=== PATIENT | female | born 1950 | race Caucasian/White ===

== ENCOUNTER 2020-05-04 02:24 | Emergency (ER) | payer MEDICARE ==
[~2020-05-04] VITALS: Ht 157.5 cm; Wt 86.2 kg
[2020-05-04] MEDS ORDERED: KETOROLAC TROMETHAMINE 60 MG/2 ML VIAL ONE (03:14)
[2020-05-04] MEDS ORDERED: HYDROCODONE/APAP 5MG-325MG TAB ONE (03:14)
[2020-05-04] MEDS ORDERED: CYCLOBENZAPRINE HCL 10 MG TAB ONE (03:14)
[2020-05-04] MEDS ORDERED: CYCLOBENZAPRINE HCL 10 MG TAB PO ONE (03:15)
[2020-05-04] MEDS ORDERED: HYDROCODONE/APAP 5MG-325MG TAB PO ONE (03:15)
[2020-05-04] MEDS ORDERED: KETOROLAC TROMETHAMINE 60 MG/2 ML VIAL IM ONE (03:15)
[2020-05-04] MEDS ORDERED: CYCLOBENZAPRINE5 MG PO (03:23)
[2020-05-04] MEDS ORDERED: PREDNISONE20 MG PO (03:23)
--- NOTE | 2020-05-04 03:23 | Emergency Department Note ---
History of Present Illnes History of Present Illness Chief Complaint: sacral pain radiating to bilateral buttck to rle History of Present Illness This is a 70 year old female. was doing well prior to this. 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 Onset (how long ago): day(s) (1) Location: see above Quality: rle Radiation: Reports extremity (rle) Severity: severe Onset quality: gradual Duration (how long): day(s) (1) Timing of current episode: constant Progression: worsening Chronicity: new Context: Denies recent illness, Denies recent surgery, Denies recent immobilization, Denies recent travel, Denies trauma/injury, Denies new medications, Denies hx of DVT/PE, Denies non-compliance w/ medications Relieving factors: none Exacerbating factors: movement Associated symptoms: Reports denies other symptoms Treatments prior to arrival: none Past Medical/Family History Physician Review I have reviewed the patient's past medical and family history. Any updates have been documented here. Past Medical History Recent Fever: No Clinical Suspicion of Infectio: No New/Unexplained Change in Ment: No Past Medical History: Hypertension, Osteoarthritis Social History Smoking Cessation: Never Smoker Counseling Performed: No Alcohol Use: None Any Illegal Drug Use: No TB Exposure/Symptoms: No Physically hurt or threatened: No Family History Family history of heart diseas: No Other Any Pre-Existing Lines (PICC,: No Is patient up to date on immun: No Review of Systems Review of Systems Constitutional: Reports no symptoms EENTM: Reports no symptoms Cardiovascular: Reports no symptoms Respiratory: Reports no symptoms Gastrointestinal: Reports no symptoms Genitourinary: Reports no symptoms Musculoskeletal: Reports as per HPI Integumentary: Reports no symptoms Neurological: Reports no symptoms Psychological: Reports no symptoms Endocrine: Reports no symptoms Hematological/Lymphatic: Reports no symptoms Review of other systems: All other systems negative Physical Exam Related Data Vital signs reviewed: Yes Physical Exam CONSTITUTIONAL Constitutional: Present well-developed, Present well-nourished HENT HENT: Present normocephalic, Present atraumatic, Present oropharynx clear/moist, Present nose normal HENT L/R: Present left ext ear normal, Present right ext ear normal EYES Eyes: Reports PERRL, Reports conjunctivae normal NECK Neck: Present ROM normal, Present supple PULMONARY Pulmonary: Present effort normal, Present breath sounds normal CARDIOVASCULAR Cardiovascular: Present regular rhythm, Present heart sounds normal, Present capillary refill normal, Present normal rate GASTROINTESTINAL Abdominal: Present soft, Present nontender, Present bowel sounds normal GENITOURINARY Genitourinary: Present exam deferred SKIN Skin: Present warm, Present dry MUSCULOSKELETAL Musculoskeletal: Present ROM normal NEUROLOGICAL Neurological: Present alert, Present oriented x 3, Present no gross motor or sensory deficits, Present other (POSITIVE RIGHT STRAIGHT LEG TEST AT 30 DEGREES) PSYCHOLOGICAL Psychological: Present mood/affect normal, Present judgement normal Critical Care Time Comments PAIN DECREASED S/P MEDS Assessment & Plan Medical Decision Making MDM SEE BELOW Assessment & Plan Final Impression: (1) Sciatica Depart Disposition: HOME, SELF-halfway Meds Active Scripts Cyclobenzaprine Hcl (FLEXERIL) 5 Mg Tablet, 10 MG PO Q8H PRN for MODERATE PAIN (4-6), #30 TAB TAKE AFTER PREDNISONE TO CONTROL PAIN IF NEED BE Prov:JOVANNI LOGAN 05/04/20 Prednisone (PREDNISONE) 20 Mg Tab, 60 MG PO DAILY PRN for MODERATE PAIN (4-6), #18 TAB take all 3 20 mg pills at once Prov:JOVANNI LOGAN 05/04/20 Medications in the ED Ketorolac Tromethamine 60 mg ONCE ONCE IM ; Start 05/04/20 at 03:15; Stop 05/04/20 at 03:16; Status UNV Acetaminophen/ Hydrocodone Bitart 1 ea ONCE ONCE PO ; Start 05/04/20 at 03:15; Stop 05/04/20 at 03:16; Status UNV Cyclobenzaprine HCl 10 mg ONCE ONCE PO ; Start 05/04/20 at 03:15; Stop 05/04/20 at 03:16; Status UNV JOVANNI LOGAN May 04, 2020 03:23
[2020-05-05] MEDS ORDERED: PEPCID20 MG PO (05:14)
[2020-05-05] MEDS ORDERED: BENADRYL25 M1 PO (05:14)
--- OUTSIDE RECORDS SUMMARY | 2020-05-09 18:19 | XMS REPORT | Clinical Summary ---
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 Take 5 tabs/weekly Active alendronate (FOSAMAX) 70 Take 70 mg by 0 MG tablet mouth every 7 days. Take in the morning with a full glass of water on an empty stomach, do NOT take anything else by mouth or lie down for the next 30 min. Active pantoprazole (PROTONIX) Take 40 mg by 0 40 MG EC tablet mouth daily. Active levothyroxine (SYNTHROID, Take 75 mcg 0 LEVOXYL) 75 mcg tablet by mouth every morning. Active ondansetron (ZOFRAN) 4 MG Take 4 mg by 0 tablet mouth 3 (three) times a day as needed for nausea or vomiting. Active dicyclomine (BENTYL) 20 Take 20 mg by 0 mg tablet mouth 4 (four) times a day as needed. Active folic acid (FOLVITE) 1 MG Take 1 mg by 0 tablet mouth once a week. Active lisinopril Take 20 mg by 0 (PRINIVIL,ZESTRIL) 20 mg mouth daily. tablet Active hydroCHLOROthiazide Take 12.5 mg 0 (HYDRODIURIL) 12.5 MG by mouth tablet daily. Active pravastatin (PRAVACHOL) Take 80 mg by 0 40 MG tablet mouth daily. Active Problems Problem Noted Date Ruptured appendix 12/12/2017 Surgical History Surgery Date Site/Laterality Comments HYSTERECTOMY cancer of uetrus in 2013 APPENDECTOMY, 12/11/2017 Abdomen/Right Procedure: APPE NDECTOMY, LAPAROSCOPIC; Surgeon: Irasema Diamond; Location: [facility]; Service: General; Laterality: Right; Medical History Medical History Date Comments Disease of thyroid gland Hypertension Family History Medical History Relation Name Comments Heart disease Father Hyperlipidemia Father Hypertension Father Cancer Mother breast cancer Hyperlipidemia Mother breast cancer Hypertension Mother breast cancer Heart disease Sister Relation Name Status Comments Father Mother breast cancer Sister Social History Date Tobacco Use Types Packs/Day Years Used Never Smoker Drinks/Week oz/Week Comments Alcohol Use No Sex Assigned at Date Recorded Not on file Last Filed Vital Signs Not on file Plan of Treatment Not on file Results Not on fileafter 05/04/2019 Insurance Type Payer Benefit Subscriber ID Effective Phone Address Plan / Dates Group Medicare MEDICARE MEDICARE [id number] 2017-P [place], [place] resent [place] B Commercial AARP AARP [id number] 2017-P SUPPLEMENT resent Advance Directives For more information, please contact: [phone] 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
--- OUTSIDE RECORDS SUMMARY | 2020-05-09 18:19 | XMS REPORT | Continuity of Care Document ---
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 02/19/2017 [facility] AMS Active 0 02/02/2017 [facility] AMNESIA, GLOBAL TRANSIENT Acti ve 02/02/2017 [facility] Gastroesophageal reflux disease (disorder) Resolved Problem 02/27/2017 [facility] Hyperlipidemia (disorder) Reso lved Problem [facility] Hypertensive disorder, systemic arterial (disorder) Resolved Problem 02/27/2017 [facility] Hyperthyroidism (disorder) Res olved Problem [facility] Arthritis (disorder) Resolved Problem 02/27/2017 left hip and spine [facility] Localized osteoarthritis of knees, bilateral Active Problem 03/07/2020 Armen Pickett Psoriasis Active Problem 03/07/2020 Armen Pickett Neck pain Active Problem 11/02/2019 Armen Pickett Polyarthralgia Active Problem 11/02/2019 Armen Pickett Psoriatic arthritis Active Problem 03/07/2020 Armen Reinaer Long-term use of high-risk medication Active Problem 09/2019 Armen Reinaer Need for prophylactic vaccination and in oculation against influenza Active Diag nosis 04/15/2017 Armen Pickett Knee pain, right Active Problem 11/02/2019 Armen Pickett Knee pain, left Active Problem 11/02/2019 Armen Pickett Back pain Active Problem 03/07/2020 Armen Pickett Osteopenia of multiple sites A ctive Problem 09/2019 Armen Pickett Vitamin D deficiency Active Problem 03/07/2020 Armen Pickett Low vitamin D level Active Problem 03/07/2020 Armen Reinaer Shoulder pain, right Active Diagnosis 02/27/2020 Armen Pickett TRANSIENT GLOBAL AMNESIA Active [facility] ATHSCL HEART DISEASE OF [place] ART W Active [place] Medications Medication Details Route Status Patient Instructions Ordering Provider Order Date Source [place] 1 packet with food Orally Active 20 MEQ Orally Once a day Garcia 03/06/2020 Armen Pickett Vitamin D (Ergocalciferol) 1 c apsule Orally Active 1.25 MG (14275 UT) Orally once a week [place] 10/18/2019 Armen Pickett Vitamin D (Ergocalciferol) 1 c apsule Orally Active 1.25 MG (96378 UT) Orally once a week Garcia 07/26/2019 Armen Pickett Alendronate Sodium TAKE 1 TABL ET BY MOUTH ONCE A WEEK Orally Active 70 MG Orally Juan 07/14/2018 Armen Pickett Otezla 1 tablet Orally Active 30 MG Orally Twice a da y Juan 06/13/2018 Armen Pickett Methotrexate TAKE 5 TABLETS BY MOUTH ONCE EVERY WEEK NA Active 2.5 MG Juan 06/09/2018 Armen Pickett PredniSONE 1 tab prn Orally Active 5 MG Orally Once a day Juan 11/08/2017 Armen Pickett PredniSONE 1 tab prn Orally Active 5 MG Orally Once a day Juan 11/08/2017 Armen Pickett Alendronate Sodium take 1 tabl et Orally Active 70 MG Orally once a week Juan 09/20/2017 Armen Pickett Diclofenac Sodium 1 applicatio n to affected area Transdermal Active 3 % Transdermal Twice a day Yo usaf 06/10/2017 Armen Pickett Folic Acid 1 tablet Orally Active 1 MG Orally Once a day Juan 04/20/2017 Armen Pickett Methotrexate 3 tabs altogether Orally Active 2.5mg Orally Once a week Juan 04/20/2017 Armen Pickett Pravastatin Notes: (Same as: Yuliya west) Inactive 02/04/2017 [facility] Pravastatin 80 mg, Route: PO, Drug form: TAB, Daily, Dosing Weight 90.909, kg, Start date: 02/03/17 9:00:00 CDT, Duration: 30 day, Stop date: 03/04/17 9:00:00 CDT No Longer Active 02/03/2017 [facility] Hydrochlorothiazide 12.5 MG / Lisinopril 20 MG Oral Tablet 1 tab, Route: PO, Drug Form: TAB, Dosing Weight 90.909, kg, Daily, Start date: 02/03/17 9:00:00 CDT, Duration: 30 day, Stop date: 03/04/17 9:00:00 CDT Inactive 02/03/2017 [facility] Folic Acid Notes: (Same as: Fo lvite) Inactive 02/03/2017 [facility] Aspirin 325 MG Oral Tablet Not es: Take with food. Inactive 02/03/2017 [facility] Hydrochlorothiazide 25 mg Hydr ochlorothiazide 25 mg, 12.5 mg, 0.5 tab, Drug form: MISC, Route: PO, Daily, 02/03/17 9:00:00 CDT, Duration: 30 day, Stop date: 03/04/17 9:00:00 CDT Inactive 02/03/2017 [facility]ter lisinopril Notes: (Same as: Pr inivil, Zestril) Inactive 02/03/2017 [facility] Streptococcus pneumoniae serotype 1 caps ular antigen diphtheria [id number] protein conjugate vaccine / Streptococcus pneumoniae serotype 14 capsular antigen diphtheria [id number] protein conjugate vaccine / Streptococcus pneumoniae serotype 18C capsular antigen d Notes: Shake well prior to use (Same as: Prevnar 13) Inactive 02/03/2017 [facility] Docusate Sodium 50 MG / sennosides, HALFWAY 8.6 MG Oral Tablet Notes: (Same as Senokot-S) Equiv. to Rosalba-Colace. Inactive 02/03/2017 [facility] heparin Notes: porcine heparin Inactive 02/03/2017 [facility] Versed 1 mg, Route: IVP, PRN, Dosing Weight 90.909, kg, PRN Anxiety, Start date: 02/02/17 23:57:00 CDT, Duration: 30 day, Stop date: 03/04/17 23:56:00 CDT Inactive 02/03/2017 [facility] Ativan 1 mg, Route: IV, ONCE, Dosing Weight 90.909, kg, PRN Agitation, Start date: 02/02/17 23:33:00 CDT Inactive 02/03/2017 [facility] nter methotrexate 10 mg oral tablet 10 mg = 1 tab, PO, Q7D, 0 Refill(s) Active 02/03/2017 [facility] Aspirin 325 MG Oral Tablet 325 mg = 1 tab, PO, Daily, 0 Refill(s) Active 02/03/2017 [facility] Alendronic acid 40 MG Oral Tablet 40 mg = 1 tab, PO, Q7D, 0 Refill(s) Active 02/03/2017 [facility] Folic Acid 1 mg, Daily, 0 Refi ll(s) Active 02/03/2017 [facility] pravastatin 80 mg oral tablet 80 mg = 1 tab, PO, Daily, 0 Refill(s) Active 02/03/2017 [facility] Hydrochlorothiazide 12.5 MG / Lisinopril 20 MG Oral Tablet 1 tab, PO, Daily, 0 Refill(s) Active 02/03/2017 [facility] nt ketOROLAC 15 mg/mL injectable solution 15 mg, Route: IVP, Drug form: INJ, ONCE, Dosing Weight 72.727, kg, Priority: STAT, Start date: 02/02/17 18:18:00 CDT, Stop date: 02/02/17 18:18:00 CDT Inactive 02/02/2017 [facility] Compazine 10 mg, Route: IV, ON CE, Dosing Weight 72.727, kg, Start date: 02/02/17 18:17:00 CDT, Stop date: 02/02/17 18:17:00 CDT Inactive 02/02/2017 [facility] Pravastatin Sodium 1 tablet Orally Active 80 MG Orally Once a day Juan Pickett Methotrexate TAKE 5 TABLETS BY MOUTH ONCE EVERY WEEK NA Active 2.5 MG Juan Pickett Levothyroxine Sodium 1 tablet Orally Active 25 MCG Orally Once a day Juan Pickett Lisinopril-Hydrochlorothiazide 1 tablet Orally Active 20-12.5 MG Orally Once a day Juan Armen Pickett [place] Aspirin 1 tablet Orally Active 325 MG Orally Once a da y Juan Pickett Pantoprazole Sodium 1 tablet Orally Active 40 MG Orally Once a day Juan Pickett Folic Acid 1 tablet Orally Active 1 MG Orally Once a day Juan Pickett Alendronate Sodium 1 tablet Orally Active 70 MG Orally Once a week Juan Armen Pickett Pantoprazole Sodium 1 tablet Orally Active 40 MG Orally Once a day Radha Pickett Levothyroxine Sodium 1 tablet Orally Active 25 MCG Orally Once a day Garcia Armen Pickett Alendronate Sodium 1 tablet Orally Active 70 MG Orally once a week Radha Pickett [place] Aspirin 1 tablet Orally Active 325 MG Orally Once a da y Garcia Armen Pickett Lisinopril-Hydrochlorothiazide 1 tablet Orally Active 20-12.5 MG Orally Once a day Garcia Armen Pickett Pravastatin Sodium 1 tablet Orally Active 80 MG Orally Once a day Juan Armen Pickett Otezla 1 tablet Orally Active 30 MG Orally Twice a da y Garcia Cristian Pickett Tylenol Arthritis Pain 1 table t as needed Orally Active 650 MG Orally prn Radha Pickett Aspirin 81 1 tablet Orally Active 81 MG Orally Once a day Garcia Cristian Pickett Rosuvastatin Calcium 1 tablet Orally Active 20 MG Orally Once a day Radha Pickett PredniSONE TAKE 1 TABLET BY MO [facility] EVERY DAY NA Active 5 MG Radha Pickett Allergies, Adverse Reactions, Alerts Substance Category Reaction Severity Reaction type Status Date Reported Comments Source Synvisc One Adverse Reaction pain, swelling Adverse Reactio n Active 02/16/2020 Armen Reinaer Immunizations Immunization Date Given Site Status Last Updated Comments Source Flu Vaccine 04/12/2017 completed Armen Pickett pneumococcal 13-valent vaccine 02/03/2017 Not Given [facility] Results Order Name Results Value Reference Range Date Interpretation Comments Source ANEMIA STUDY Folate Lvl 78.7 >=3.0 ng/mL 02/03/2017 [facility] ANEMIA STUDY Vitamin B12 Lvl 326 254 - 1320 02/03/2017 [facility] CHEM PANEL Lactic Acid Lvl 0.6 0.5 - 2.2 02/03/2017 [facility] CHEM PANEL Phosphorus 3.3 2.5 - 4.5 02/03/2017 [facility] CHEM PANEL eGFR 72 02/03/2017 Result Comment: The eGFR is calculated using the CKD-EPI formula. In most young, healthy individuals the eGFR will be >90 mL/min/1.73m2. The eGFR declines with age. An eGFR of 60-89 may be normal in some populations, particularly the elderly, for whom the CKD-EPI formula has not been extensively validated. Use of the eGFR is not recommended in the following populations:

Individuals with unstable creatinine concentrations, including patients and those with serious co-morbid conditions.

Patients with extremes in muscle mass or diet.

The data above are obtained from the National Kidney Disease Education Program (NKDEP) which additionally recommends that when the eGFR is used in patients with extremes of body mass index for purposes of drug dosing, the eGFR should be multiplied by the estimated BMI. [facility] CHEM PANEL Calcium Lvl 8.6 8.5 - 10.5 02/03/2017 [facility] CHEM PANEL CO2 26 24 - 32 02/03/2017 [facility] CHEM PANEL Creatinine Lvl 0.84 0.50 - 1.40 02/03/2017 [facility] CHEM PANEL Sodium Lvl 141 135 - 145 02/03/2017 [facility] CHEM PANEL Chloride Lvl 106 95 - 109 02/03/2017 [facility] CHEM PANEL Potassium Lvl 3.9 3.5 - 5.1 02/03/2017 [facility] CHEM PANEL Glucose Lvl 104 70 - 99 02/03/2017 [facility] CHEM PANEL BUN 19 7 - 22 02/03/2017 [facility] CHEM PANEL AGAP 12.9 10.0 - 20.0 02/03/2017 [facility] CHEM PANEL Magnesium Lvl 2.2 1.8 - 2.4 02/03/2017 [facility] HEMATOLOGY WBC 5.6 3.7 - 10.4 02/03/2017 [facility] HEMATOLOGY MCV 89.6 80.0 - 98.0 02/03/2017 [facility] HEMATOLOGY RBC 3.85 4.20 - 5.40 02/03/2017 [facility] HEMATOLOGY RDW 14.8 11.5 - 14.5 02/03/2017 [facility] HEMATOLOGY Platelet 243 133 - 450 02/03/2017 [facility] HEMATOLOGY MCH 30.6 27.0 - 31.0 02/03/2017 [facility] HEMATOLOGY MCHC 34.1 32.0 - 36.0 02/03/2017 [facility] HEMATOLOGY MPV 8.3 7.4 - 10.4 02/03/2017 [facility] HEMATOLOGY Hgb 11.8 12.0 - 16.0 02/03/2017 [facility] HEMATOLOGY Hct 34.5 36.0 - 48.0 02/03/2017 [facility] HEMATOLOGY Segs-Bands # 3.8 1.5 - 8.1 02/03/2017 [facility] HEMATOLOGY Lymphocytes # 1.2 1.0 - 5.5 02/03/2017 [facility] HEMATOLOGY Monocytes # 0.5 0.0 - 0.8 02/03/2017 [facility] HEMATOLOGY Basophils 0.2 0.0 - 1.0 02/03/2017 [facility] HEMATOLOGY Eosinophils 0.6 0.0 - 4.0 02/03/2017 [facility] HEMATOLOGY Monocytes 9.3 2.0 - 12.0 02/03/2017 [facility] HEMATOLOGY Segs 68.1 45.0 - 75.0 02/03/2017 [facility] HEMATOLOGY Lymphocytes 21.8 20.0 - 40.0 02/03/2017 [facility] LIPIDS CHD Risk 2.26 3.90 - 5.80 02/03/2017 [facility] LIPIDS LDL (Calculated) 60 <=99 mg/dL 02/03/2017 [facility] LIPIDS HDL 58 >=61 mg/dL 02/03/2017 [facility] LIPIDS VLDL 13 02/03/2017 [facility] LIPIDS Chol 131 <=199 mg/dL 02/03/2017 [facility] LIPIDS Trig 63 <=149 mg/dL 02/03/2017 [facility] PARATHYROID PROFILE Ca Norm WB 1.07 1.05 - 1.25 02/03/2017 [facility] PARATHYROID PROFILE Ca Ion WB 1.06 1.05 - 1.25 02/03/2017 [facility] SPECIAL CHEMISTRY Hgb A1C 5.2 <=5.6 % 02/03/2017 [facility] DRUG SCREEN U Amph Scr Nega tive *NA* (02/02/17 6:02 PM) Negative 02/02/2017 [facility] DRUG SCREEN U Dolly Scr Nega tive *NA* (02/02/17 6:02 PM) Negative 02/02/2017 [facility] DRUG SCREEN U Benzodia Scr Nega tive *NA* (02/02/17 6:02 PM) Negative 02/02/2017 [facility] DRUG SCREEN U Cannab Scr Nega tive *NA* (02/02/17 6:02 PM) Negative 02/02/2017 [facility] DRUG SCREEN U Cocaine Scr Nega tive *NA* (02/02/17 6:02 PM) Negative 02/02/2017 [facility] DRUG SCREEN UDS Note See Note *NA* (02/02/17 6:02 PM) 02/02/2017 [facility] DRUG SCREEN U Opiate Scr Nega tive *NA* (02/02/17 6:02 PM) Negative 02/02/2017 [facility] DRUG SCREEN U Phencyc Scr Nega tive *NA* (02/02/17 6:02 PM) Negative 02/02/2017 [facility] URINE AND STOOL UA WBC 0-2 /HPF None Seen /HPF 02/02/2017 [facility] URINE AND STOOL UA Bacteria Few /HPF None Seen /HPF 02/02/2017 [facility] URINE AND STOOL UA RBC None Seen (02/02/17 6:02 PM) 0 - 2 02/02/2017 [facility] URINE AND STOOL UA Sq Epi Few /LPF Few /LPF 02/02/2017 [facility] URINE AND STOOL UA Ketones Negative *NA* (02/02/17 6:02 PM) Negative 02/02/2017 [facility] URINE AND STOOL UA Bili Negative *NA* (02/02/17 6:02 PM) Negative 02/02/2017 [facility] URINE AND STOOL UA Leuk Est Trace *ABN* (02/02/17 6:02 PM) Negative 02/02/2017 [facility] URINE AND STOOL UA Blood Negative (02/02/17 6:02 PM) Negative 02/02/2017 [facility] URINE AND STOOL UA Nitrite Negative (02/02/17 6:02 PM) Negative 02/02/2017 [facility] URINE AND STOOL UA Urobilinogen 0.2 0.1 - 1.0 02/02/2017 [facility] URINE AND STOOL UA Protein Negative (02/02/17 6:02 PM) Negative 02/02/2017 [facility] URINE AND STOOL UA pH 7.0 5.0 - 8.0 02/02/2017 [facility] URINE AND STOOL UA Glucose Negative (02/02/17 6:02 PM) Negative 02/02/2017 [facility] URINE AND STOOL UA Spec Grav 1.010 <=1.030 02/02/2017 [facility] URINE AND STOOL UA Color Yellow *NA* (02/02/17 6:02 PM) Yellow 02/02/2017 [facility] URINE AND STOOL UA Turbidity Slight Cloudy (02/02/17 6:02 PM) Clear 02/02/2017 [facility] CHEM PANEL Lactic Acid WB 1.4 0.5 - 2.2 02/02/2017 [facility] CARDIAC ENZYMES Troponin-I <0.02 0.00 - 0.40 02/02/2017 [facility] CHEM PANEL eGFR 54 02/02/2017 Result Comment: The eGFR is calculated using the CKD-EPI formula. In most young, healthy individuals the eGFR will be >90 mL/min/1.73m2. The eGFR declines with age. An eGFR of 60-89 may be normal in some populations, particularly the elderly, for whom the CKD-EPI formula has not been extensively validated. Use of the eGFR is not recommended in the following populations:

Individuals with unstable creatinine concentrations, including patients and those with serious co-morbid conditions.

Patients with extremes in muscle mass or diet.

The data above are obtained from the National Kidney Disease Education Program (NKDEP) which additionally recommends that when the eGFR is used in patients with extremes of body mass index for purposes of drug dosing, the eGFR should be multiplied by the estimated BMI. [facility] CHEM PANEL Chloride Lvl 105 95 - 109 02/02/2017 [facility] CHEM PANEL Calcium Lvl 9.1 8.5 - 10.5 02/02/2017 [facility] CHEM PANEL CO2 25 24 - 32 02/02/2017 [facility] CHEM PANEL Potassium Lvl 3.7 3.5 - 5.1 02/02/2017 [facility] CHEM PANEL Sodium Lvl 139 135 - 145 02/02/2017 [facility] CHEM PANEL Creatinine Lvl 1.07 0.50 - 1.40 02/02/2017 [facility] CHEM PANEL BUN 18 7 - 22 02/02/2017 [facility] CHEM PANEL Glucose Lvl 111 70 - 99 02/02/2017 [facility] CHEM PANEL Alk Phos 75 39 - 136 02/02/2017 [facility] CHEM PANEL Bili Total 0.8 0.2 - 1.3 02/02/2017 [facility] CHEM PANEL Albumin Lvl 4.3 3.5 - 5.0 02/02/2017 [facility] CHEM PANEL ALT 24 0 - 65 02/02/2017 [facility] CHEM PANEL AST 25 0 - 37 02/02/2017 [facility] CHEM PANEL Total Protein 7.5 6.4 - 8.4 02/02/2017 [facility] CHEM PANEL B/C Ratio 17 6 - 25 02/02/2017 [facility] CHEM PANEL AGAP 12.7 10.0 - 20.0 02/02/2017 [facility] CHEM PANEL Globulin 3.2 2.7 - 4.2 02/02/2017 [facility] CHEM PANEL A/G Ratio 1.3 0.7 - 1.6 02/02/2017 [facility] HEMATOLOGY PTT 26.1 22.9 - 35.8 02/02/2017 [facility] HEMATOLOGY PT 13.0 12.0 - 14.7 02/02/2017 [facility] HEMATOLOGY INR 0.96 0.85 - 1.17 02/02/2017 [facility] HEMATOLOGY MPV 8.2 7.4 - 10.4 02/02/2017 [facility] HEMATOLOGY Platelet 278 133 - 450 02/02/2017 [facility] HEMATOLOGY RDW 14.8 11.5 - 14.5 02/02/2017 [facility] HEMATOLOGY MCHC 33.9 32.0 - 36.0 02/02/2017 [facility] HEMATOLOGY MCH 30.1 27.0 - 31.0 02/02/2017 [facility] HEMATOLOGY Hgb 12.5 12.0 - 16.0 02/02/2017 [facility] HEMATOLOGY Hct 37.0 36.0 - 48.0 02/02/2017 [facility] HEMATOLOGY MCV 88.8 80.0 - 98.0 02/02/2017 [facility] HEMATOLOGY WBC 5.6 3.7 - 10.4 02/02/2017 [facility] HEMATOLOGY RBC 4.16 4.20 - 5.40 02/02/2017 [facility] HEMATOLOGY Monocytes # 0.4 0.0 - 0.8 02/02/2017 [facility] HEMATOLOGY Segs-Bands # 4.0 1.5 - 8.1 02/02/2017 [facility] HEMATOLOGY Lymphocytes # 1.1 1.0 - 5.5 02/02/2017 [facility] HEMATOLOGY Monocytes 7.8 2.0 - 12.0 02/02/2017 [facility] HEMATOLOGY Eosinophils 2.1 0.0 - 4.0 02/02/2017 [facility] HEMATOLOGY Basophils 0.2 0.0 - 1.0 02/02/2017 [facility] HEMATOLOGY Segs 70.5 45.0 - 75.0 02/02/2017 [facility] HEMATOLOGY Lymphocytes 19.4 20.0 - 40.0 02/02/2017 [facility] HEMATOLOGY Eosinophils # 0.1 0.0 - 0.5 02/02/2017 [facility] Pathology Reports No Data Provided for This Section Diagnostic Reports Report Value Date Source Cardiac SPECT multi studies NM Nuclear gated myocardial perfusion scan performed as per protocol at the nuclear medicine lab at [facility]. Lexiscan injected 0.4 mg intravenously as a stress agent. Cardiolite injected 11 mCi for resting protocol 30 mCi for stress protocol. Impression. Mild mild anterior wall ischemia noted. Left ventricular ejection fraction 60%, no evidence of wall motion abnormality noted. Abnormal nuclear stress test with mild anterior wall ischemia. 02/24/2017 [facility] Neck wo contrast MRA MRI OF TH E BRAIN MRA OF THE BRAIN MRA OF THE NECK DATE: COMPARISON: HISTORY: TECHNIQUE: Multiplanar MR imaging was performed utilizing T1, T2, diffusion, and susceptibility weighting. MR angiography of the intracranial circulation was performed utilizing 3-D ghxa-my-jcokoy technique. Maximum intensity projection, MIP reformatted images were provided. Source images were also reviewed. MR angiography was performed from the upper thorax through the skull base utilizing 2-D [id number]-wp-eyibmp technique. 3-D sett-gh-zdgybw technique through the carotid bifurcations was also performed. Maximum intensity projection, MIP reformatted images were provided. Source images were also reviewed. FINDINGS: MRI: There is no restricted diffusion to indicate acute infarction. The santacruz- white interfaces are well defined. There are multiple punctate foci of increased T2 and FLAIR signal within the white matter of the gerardo radiata and centrum semiovale. These are nonspecific and are most consistent with chronic small vessel ischemic disease. There are no mass lesions or extra-axial collections. MRA brain: There is normal flow signal within the bilateral intracranial internal carotid arteries, the bilateral distal vertebral arteries, and the basilar artery. The anterior and posterior circulations demonstrate normal branching pattern and caliber. There is a origin of the left posterior cerebral artery, arising directly from the left internal carotid artery, a normal variant. There are no intracranial branch occlusions or stenoses. There are no aneurysms or vascular malformations. MRA neck: There is normal flow signal within the aortic arch and proximal great vessels. The right innominate, left common carotid and left subclavian arteries arise in anatomic configuration. There are no proximal stenoses. The vertebral artery origins are well visualized and patent. Normal flow signal is noted within the bilateral common, internal, and external carotid arteries. There is no carotid bifurcation stenosis. Normal flow signal is noted in the bilateral vertebral arteries. IMPRESSION: 1. Normal MRI of the brain. No acute inf arct. 2. Normal MRA of the brain. 3. Normal MRA of the neck. There is no c arotid bifurcation stenosis. Resident preliminary report by Dr. Susannah Lutz: 1. No evidence of recent infarction. 2. Chronic microangiopathic ischemic ch anges. 3. No major vascular abnormality. [place] SECTION: Neuro 02/03/2017 [facility] Brain wo contrast MRI MRI OF T HE BRAIN MRA OF THE BRAIN MRA OF THE NECK DATE: COMPARISON: HISTORY: TECHNIQUE: Multiplanar MR imaging was performed utilizing T1, T2, diffusion, and susceptibility weighting. MR angiography of the intracranial circulation was performed utilizing 3-D acuc-co-xmrxlj technique. Maximum intensity projection, MIP reformatted images were provided. Source images were also reviewed. MR angiography was performed from the upper thorax through the skull base utilizing 2-D gxco-wb-[id number] technique. 3-D bosg-vq-psvsog technique through the carotid bifurcations was also performed. Maximum intensity projection, MIP reformatted images were provided. Source images were also reviewed. FINDINGS: MRI: There is no restricted diffusion to indicate acute infarction. The santacruz- white interfaces are well defined. There are multiple punctate foci of increased T2 and FLAIR signal within the white matter of the gerardo radiata and centrum semiovale. These are nonspecific and are most consistent with chronic small vessel ischemic disease. There are no mass lesions or extra-axial collections. MRA brain: There is normal flow signal within the bilateral intracranial internal carotid arteries, the bilateral distal vertebral arteries, and the basilar artery. The anterior and posterior circulations demonstrate normal branching pattern and caliber. There is a origin of the left posterior cerebral artery, arising directly from the left internal carotid artery, a normal variant. There are no intracranial branch occlusions or stenoses. There are no aneurysms or vascular malformations. MRA neck: There is normal flow signal within the aortic arch and proximal great vessels. The right innominate, left common carotid and left subclavian arteries arise in anatomic configuration. There are no proximal stenoses. The vertebral artery origins are well visualized and patent. Normal flow signal is noted within the bilateral common, internal, and external carotid arteries. There is no carotid bifurcation stenosis. Normal flow signal is noted in the bilateral vertebral arteries. IMPRESSION: 1. Normal MRI of the brain. No acute inf arct. 2. Normal MRA of the brain. 3. Normal MRA of the neck. There is no c arotid bifurcation stenosis. Resident preliminary report by Dr. Susannah Lutz: 1. No evidence of recent infarction. 2. Chronic microangiopathic ischemic ch anges. 3. No major vascular abnormality. [place] SECTION: Neuro 02/03/2017 [facility] Brain wo contrast MRA MRI OF T HE BRAIN MRA OF THE BRAIN MRA OF THE NECK DATE: COMPARISON: HISTORY: TECHNIQUE: Multiplanar MR imaging was performed utilizing T1, T2, diffusion, and susceptibility weighting. MR angiography of the intracranial circulation was performed utilizing 3-D lmyr-nn-kzijwn technique. Maximum intensity projection, MIP reformatted images were provided. Source images were also reviewed. MR angiography was performed from the upper thorax through the skull base utilizing 2-D xlxy-jg-lewmnb technique. 3-D sujk-gg-engwpv technique through the carotid bifurcations was also performed. Maximum intensity projection, MIP reformatted images were provided. Source images were also reviewed. FINDINGS: MRI: There is no restricted diffusion to indicate acute infarction. The santacruz- white interfaces are well defined. There are multiple punctate foci of increased T2 and FLAIR signal within the white matter of the gerardo radiata and centrum semiovale. These are nonspecific and are most consistent with chronic small vessel ischemic disease. There are no mass lesions or extra-axial collections. MRA brain: There is normal flow signal within the bilateral intracranial internal carotid arteries, the bilateral distal vertebral arteries, and the basilar artery. The anterior and posterior circulations demonstrate normal branching pattern and caliber. There is a origin of the left posterior cerebral artery, arising directly from the left internal carotid artery, a normal variant. There are no intracranial branch occlusions or stenoses. There are no aneurysms or vascular malformations. MRA neck: There is normal flow signal within the aortic arch and proximal great vessels. The right innominate, left common carotid and left subclavian arteries arise in anatomic configuration. There are no proximal stenoses. The vertebral artery origins are well visualized and patent. Normal flow signal is noted within the bilateral common, internal, and external carotid arteries. There is no carotid bifurcation stenosis. Normal flow signal is noted in the bilateral vertebral arteries. IMPRESSION: 1. Normal MRI of the brain. No acute inf arct. 2. Normal MRA of the brain. 3. Normal MRA of the neck. There is no c arotid bifurcation stenosis. Resident preliminary report by Dr. Susannah Lutz: 1. No evidence of recent infarction. 2. Chronic microangiopathic ischemic ch anges. 3. No major vascular abnormality. [place] SECTION: Neuro 02/03/2017 [facility] Brain wo contrast CT EXAM: CT BRAIN WITHOUT CONTRAST INDICATION: - Sudden onset short term memory loss COMPARISON: None TECHNIQUE: Routine axial CT images of the brain were obtained. DISCUSSION: No intracranial hemorrhage or mass effect. No acute infarction. No hydrocephalus. Calvarium is intact. Paranasal sinuses are clear. IMPRESSION: No acute intracranial abnormality. History: Sudden onset short-term memory loss Resident prelim: No acute intracranial abnormality. UT SECTION: Neuro 02/02/2017 [facility] Chest 1view DX EXAM: XR CHEST 1 VIEW DATE: 02/02/2017 4:19 PM CDT INDICATION: - AMS COMPARISON: None TECHNIQUE: AP chest FINDINGS: Lines and tubes: None. Lungs and pleura: No pulmonary or pleural based abnormality is identified. Heart and mediastinum: The heart size is normal for technique. The mediastinal contours are normal. Bones: No acute bony abnormality is identified. IMPRESSION: No acute radiographic abnormality. 02/02/2017 [facility] Consultation Notes No Data Provided for This Section Discharge Summaries No Data Provided for This Section History and Physicals No Data Provided for This Section Vital Signs Vital Sign Value Date Comments Source Weight 190.1 02/20/2020 [facility] Height 62 0 02/20/2020 [facility] Temperature Oral (F) 97.3 F 02/20/2020 [facility] Heart Rate 66 02/20/2020 [facility] Diastolic (mm Hg) 60 02/20/2020 [facility] Systolic (mm Hg) 102 02/20/2020 [facility] Weight 190.5 02/16/2020 [facility] Height 62 0 02/16/2020 [facility] Temperature Oral (F) 97.0 F 02/16/2020 [facility] Heart Rate 60 02/16/2020 [facility] Diastolic (mm Hg) 60 02/16/2020 [facility] Systolic (mm Hg) 108 02/16/2020 [facility] Weight 197.7 10/26/2019 [facility] Height 60 0 10/26/2019 [facility] Temperature Oral (F) 97.4 F 10/26/2019 [facility] Heart Rate 64 10/26/2019 [facility] Diastolic (mm Hg) 84 10/26/2019 [facility] Systolic (mm Hg) 112 10/26/2019 [facility] Weight 198.9 07/25/2019 [facility] Height 61 0 07/25/2019 [facility] Temperature Oral (F) 98.2 F 07/25/2019 [facility] Heart Rate 60 07/25/2019 [facility] Diastolic (mm Hg) 60 07/25/2019 [facility] Systolic (mm Hg) 118 07/25/2019 [facility] Weight 194.4 02/01/2019 [facility] Height 61 0 02/01/2019 [facility] Temperature Oral (F) 97.8 F 02/01/2019 [facility] Heart Rate 52 02/01/2019 [facility] Diastolic (mm Hg) 60 02/01/2019 [facility] Systolic (mm Hg) 108 02/01/2019 [facility] Weight 191.9 01/24/2019 [facility] Height 61 0 01/24/2019 [facility] Temperature Oral (F) 97.9 F 01/24/2019 [facility] Heart Rate 60 01/24/2019 [facility] Diastolic (mm Hg) 62 01/24/2019 [facility] Systolic (mm Hg) 100 01/24/2019 [facility] Weight 192.6 09/20/2018 [facility] Height 61 0 09/20/2018 [facility] Temperature Oral (F) 98.0 F 09/20/2018 [facility] Heart Rate 60 09/20/2018 [facility] Diastolic (mm Hg) 72 09/20/2018 [facility] Systolic (mm Hg) 122 09/20/2018 [facility] Weight 190.7 09/14/2018 [facility] Height 61 0 09/14/2018 [facility] Temperature Oral (F) 98.1 F 09/14/2018 [facility] Heart Rate 72 09/14/2018 [facility] Diastolic (mm Hg) 68 09/14/2018 [facility] Systolic (mm Hg) 100 09/14/2018 [facility] Weight 187.8 06/16/2018 [facility] Height 61 1 08/17/2017 [facility] Temperature Oral (F) 97.0 F 06/16/2018 [facility] Heart Rate 60 06/16/2018 [facility] Diastolic (mm Hg) 70 06/16/2018 [facility] Systolic (mm Hg) 98 06/16/2018 [facility] Weight 186.0 06/13/2018 [facility] Height 60 1 08/14/2017 [facility] Temperature Oral (F) 98.5 F 06/13/2018 [facility] Heart Rate 60 06/13/2018 [facility] Diastolic (mm Hg) 62 06/13/2018 [facility] Systolic (mm Hg) 102 06/13/2018 [facility] Weight 188.9 03/14/2018 [facility] Height 60 0 03/14/2018 [facility] Temperature Oral (F) 98.5 F 03/14/2018 [facility] Heart Rate 70 03/14/2018 [facility] Diastolic (mm Hg) 60 03/14/2018 [facility] Systolic (mm Hg) 110 03/14/2018 [facility] Weight 190.1 02/22/2018 [facility] Height 60 0 02/22/2018 [facility] Temperature Oral (F) 97.4 F 02/22/2018 [facility] Heart Rate 74 02/22/2018 [facility] Diastolic (mm Hg) 74 02/22/2018 [facility] Systolic (mm Hg) 124 02/22/2018 [facility] Weight 189 11/18/2017 [facility] Height 60 0 11/18/2017 [facility] Temperature Oral (F) 97.9 F 11/18/2017 [facility] Heart Rate 76 11/18/2017 [facility] Diastolic (mm Hg) 70 11/18/2017 [facility] Systolic (mm Hg) 120 11/18/2017 [facility] Weight 195 11/08/2017 [facility] Height 60 0 11/08/2017 [facility] Temperature Oral (F) 97.2 F 11/08/2017 [facility] Heart Rate 76 11/08/2017 [facility] Diastolic (mm Hg) 74 11/08/2017 [facility] Systolic (mm Hg) 104 11/08/2017 [facility] Weight 201 08/11/2017 [facility] Height 60 0 08/11/2017 [facility] Temperature Oral (F) 97.8 F 08/11/2017 [facility] Heart Rate 74 08/11/2017 [facility] Diastolic (mm Hg) 60 08/11/2017 [facility] Systolic (mm Hg) 104 08/11/2017 [facility] Weight 198 08/10/2017 [facility] Height 60 0 08/10/2017 [facility] Temperature Oral (F) 97.2 F 08/10/2017 [facility] Heart Rate 74 08/10/2017 [facility] Diastolic (mm Hg) 70 08/10/2017 [facility] Systolic (mm Hg) 118 08/10/2017 [facility] Weight 200 04/12/2017 [facility] Height 60 1 [facility] Temperature Oral (F) 97.2 F 04/12/2017 [facility] Heart Rate 72 04/12/2017 [facility] Diastolic (mm Hg) 70 04/12/2017 [facility] Systolic (mm Hg) 128 04/12/2017 [facility] Temperature Oral (F) 98.1 F 02/03/2017 [facility] Systolic (mm Hg) 124 02/03/2017 [facility] Diastolic (mm Hg) 75 02/03/2017 [facility] Heart Rate 64 02/03/2017 [facility] Respitory Rate 18 02/03/2017 [facility] Systolic (mm Hg) 139 02/03/2017 [facility] Diastolic (mm Hg) 77 02/03/2017 [facility] Respitory Rate 18 02/03/2017 [facility] Temperature Oral (F) 96.8 F 02/03/2017 [facility] Heart Rate 72 02/03/2017 [facility] Heart Rate 61 02/03/2017 [facility] Temperature Oral (F) 96.9 F 02/03/2017 [facility] Respitory Rate 18 02/03/2017 [facility] Systolic (mm Hg) 101 02/03/2017 [facility] Diastolic (mm Hg) 58 02/03/2017 [facility] Height 157.48 cm 02/03/2017 [facility] Weight 90.909 02/03/2017 [facility] BMI Calculated 36.66 02/03/2017 [facility] Weight 72.727 02/02/2017 [facility] BMI Calculated 29.33 02/02/2017 [facility] Height 157.48 cm 02/02/2017 [facility] Encounters Location Location Details Encounter Type Encounter Number Reason For Visit Attending Provider ADM Date DC Date Status Source [facility] Observation [id number] Daniel Dunham 02/02/2017 02/04/2017 [facility] Outpatient [id number] Refugio SolizRayna 02/24/2017 02/25/2017 [facility] Procedures Procedure Code Date Perfomer Comments Source Hysterectomy<sup>1</sup> [id number] uterus CA [facility] Assessment and Plan Assessment and Plan Date Source Extracted from:Title: Inpatient Neurolog y Discharge Summary Author: José Miguel Urbano MD Date: 02/03/17 General Neurology Discharge Summary Date of Admission: 02/02/2017 Date of Discharge: 02/03/2017 Admit Diagnosis: transient global amnesia Discharge Diagnosis: transient global amnesia Consults Obtained: none Brief HPI: Ashwin Min is a 66yo woman with PMH of HTN, HLD, and ovarian cancer 2 years ago now in remission who presents with acute onset of transient memory loss. Per the patient's , [facility] two [facility] her great-granchildren when at 3pm her older great-granchild (aged 7) noted her to be confused, repeating questions and thinking there was a celebrity at the restaurant. There are no reports of any weakness, dysarthria, aphasia, or ataxia with the episode. The patient states that the last thing she remembers is her one great-grandchild being dropped off at her house last night, but that she does not remember picking up her other great-grandchild this morning or being at the restaurant. She states she can remember EMS driving her to the hospital and everything that has happened since she arrived to [facility] ER slightly after 4pm. Once she arrived at [facility], she was noted to be back near baseline, with only minor recall difficulties when asked to remember three words. She was alert and oriented x3 and answered questions appropriately. She does report a current left-sided headache over her jew region which she describes as pressure-like in nature. She is unsure of exactly when the headache began, but denies any associated photophobia, phonophobia, nausea, or vomiting. She reports a history of migraine headaches typically located over her left jew region, but states they are infrequent (last one several months ago) and they have never before been associated with memory loss. She denies any prior history of stroke or seizures. Hospital Course: Pt was back at baseline shortly after arrival to the ED. Pt had no further episodes of memory loss and did not exhibit any significant focal neurological deficits. Workup included CXR, CTH, MRI brain, and MRA head and neck, which were all unremarkable. EEG consistent with mild encephalopathy - no seizures or epileptiform activity were noted. An Echo was done to complete stroke workup and was remarkable only for mild LVH, impaired LV relaxation and bilateral atrial enlargement. Pt advised to continue her home medications including aspirin and pravastatin. Discharge Physical Examination: APPEARANCE - Active, alert, well developed, well nourished HEAD - Normocephalic and atraumatic EYES - Pupil equal and reactive to light PHARYNX - Mouth pink, mucous membranes moist. No tonsillar enlargement NECK - Supple, no significant adenopathy LUNGS - Clear to auscultation, no rales or rhonchi CV - Rate rhythm regular, no murmur, equal pulses bilaterally. ABDOMEN - Soft, non tender, with normal bowel sounds. No hepatosplenomegaly SPINE - Straight, no defects, no scoliosis SKIN: Clear, no rashes NEUROLOGY: Mental Status: Patient is awake, alert, fully oriented to person, place, and time. Able to perform serial 7s, but on 3 word recall, got 0/3 words correctly after 5 minutes Speech/language: Naming, Repetition, comprehension and fluency are intact. Cranial Nerves: EOMI, visual ordonez full, pupils 4mm briskly reactive bilaterally, facial sensation intact, face symmetric, hearing intact, tongue/uvula/soft palate midline, normal sternocleidomastoid and trapezius muscle strength. No evidence of tongue atrophy or fibrillations. Mild right tongue deviation. Motor - R UE- Deltoid 5/5, Triceps 5/5, Biceps 5/5, Wrist flexion 5/5, Wrist extension 5/5 L UE- Deltoid 5/5, Triceps 5/5, Biceps 5/5, Wrist flexion 5/5, Wrist extension 5/5 R LE- Illopsoas 5/5, Knee extension 5/5, Knee flexion 5/5, dorsiflexion 5/5, plantarflexion 5/5 LLE- Illopsoas5 /5, Knee extension5 /5, Knee flexion 5/5, dorsiflexion 5/5, plantarflexion /5 Tone is normal Sensation- intact to pinprick, temperature, vibration, and proprioception and equal bilaterally Coordination: FTN wnl, heel to boyd WNL with no signs of dysmetria. 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 Discharge Instructions: Take all medications as prescribed José Miguel Urbano MD PGY-1 Pscyhiatry Extracted from:Title: General Neurology History and Physical Author: Chloé Cruz MD Date: 02/02/17 General Neurology History and Physical Note Referring service: Admission from ER Reason for Admission: Transient Global Amnesia Chief Complaint: Acute onset memory loss HISTORY OF PRESENT ILLNESS: History obtained from: Patient/Spouse History provided reliable Ashwin Min is a 66yo woman with PMH of HTN, HLD, and ovarian cancer 2 years ago now in remission who presents with acute onset of transient memory loss. Per the patient's , she was at [facility] with two of her great-granchildren when at 3pm her older great-granchild (aged 7) noted her to be confused, repeating questions and thinking there was a celebrity at the restaurant. There are no reports of any weakness, dysarthria, aphasia, or ataxia with the episode. The patient states that the last thing she remembers is her one great-grandchild being dropped off at her house last night, but that she does not remember picking up her other great-grandchild this morning or being at the restaurant. She states she can remember EMS driving her to the hospital and everything that has happened since she arrived to [facility] ER slightly after 4pm. Once she arrived at [facility], she was noted to be back near baseline, with only minor recall difficulties when asked to remember three words. She was alert and oriented x3 and answered questions appropriately. She does report a current left-sided headache over her jew region which she describes as pressure-like in nature. She is unsure of exactly when the headache began, but denies any associated photophobia, phonophobia, nausea, or vomiting. She reports a history of migraine headaches typically located over her left jew region, but states they are infrequent (last one several months ago) and they have never before been associated with memory loss. She denies any prior history of stroke or seizures. Review of Systems: GEN: No fever, chills, night sweats, weight loss, fatigue EYES: No blurred vision, double vision, eye pain ENT: No decreased hearing, nose bleeding, nasal congestion, sore throat CARDIO: No chest pain, palpitation, orthopnea, dyspnea on exertion PULM: No shortness of breath, cough, wheezing, asthma, sputum, hemoptysis GI: No nausea, vomiting, diarrhea, constipation, Abdominal Pain : No frequency, burning, hematuria, nocturia, hesitancy NEURO: As per HPI ENDO: No weight loss, weight gain, heat intolerance, cold intolerance SKIN: No rash, lesion, itching MUSC: No joint pain, muscle pain, arthritis, back pain Past Medical History: HTN HLD Ovarian Cancer Past Surgical History: Tumor Resection Family History: No family history of seizures Social History: Denies alcohol, tobacco, or drug use Medications: Lisinopril-HCTZ 20mg-12.5mg daily Pantoprazole 40mg daily Pravastatin 80mg qhs Folic Acid 1mg daily ASA 325mg daily Alendronate 40mg weekly (typically on Wednesday) Methotrexate 10mg weekly (typically Wednesday) Allergies: NKDA Physical Exam: APPEARANCE - Active, alert, well developed, well nourished HEAD - Normocephalic and atraumatic EYES - Pupil equal and reactive to light PHARYNX - Mouth pink, mucous membranes moist. No tonsillar enlargement NECK - Supple, no significant adenopathy LUNGS - Clear to auscultation, no rales or rhonchi CV - Rate rhythm regular, no murmur, equal pulses bilaterally. ABDOMEN - Soft, non tender, with normal bowel sounds. No hepatosplenomegaly SPINE - Straight, no defects, no scoliosis SKIN: Clear, no rashes NEUROLOGY: Mental Status: Patient is awake, alert, fully oriented to person, place, and time. Able to perform serial 7s, but on 3 word recall, got 0/3 words correctly after 5 minutes Speech/language: Naming, Repetition, comprehension and fluency are intact. Cranial Nerves: EOMI, visual ordonez full, pupils 4mm briskly reactive bilaterally, facial sensation intact, face symmetric, hearing intact, tongue/uvula/soft palate midline, normal sternocleidomastoid and trapezius muscle strength. No evidence of tongue atrophy or fibrillations Motor - R UE- Deltoid 5/5, Triceps 5/5, Biceps 5/5, Wrist flexion 5/5, Wrist extension 5/5 L UE- Deltoid 5/5, Triceps 5/5, Biceps 5/5, Wrist flexion 5/5, Wrist extension 5/5 R LE- Illopsoas 5/5, Knee extension 5/5, Knee flexion 5/5, dorsiflexion 5/5, plantarflexion 5/5 LLE- Illopsoas5 /5, Knee extension5 /5, Knee flexion 5/5, dorsiflexion 5/5, plantarflexion /5 Tone is normal Sensation- intact to pinprick, temperature, vibration, and proprioception and equal bilaterally Coordination: FTN wnl, heel to boyd WNL with no signs of dysmetria. Gait- normal Reflexes- R Triceps2+, Biceps 2+, Brachioradialis 2+, Patellar 2+, Ankle 2+ L Triceps2+, Biceps 2+, Brachioradialis 2+, Patellar 2+, Ankle 2+ Toes down going bilaterally Labs: Labs (Last four charted values) WBC 5.6 (FEB 02) Hgb 12.5 (FEB 02) Hct 37.0 (FEB 02) Plt 278 (FEB 02) Na 139 (FEB 02) K 3.7 (FEB 02) CO2 25 (FEB 02) Cl 105 (FEB 02) Cr 1.07 (FEB 02) BUN 18 (FEB 02) Glucose Random H 111 (FEB 02) Ca 9.1 (FEB 02) PT 13.0 (FEB 02) INR 0.96 (FEB 02) PTT 26.1 (FEB 02) Troponin <0.02 (FEB 02) UA with trace leukocyte esterase, but 0-2 WBCs UDS negative Diagnostic Tests: EEG: pending EKG: pending Chest X-ray no acute abnormality CT- Brain no acute abnormality MRI Brain w/wo contrast: pending MRA head/neck pending Therapy assessments: patient is already back to baseline with ambulation, therefore will hold off on PT/OT/ST referrals at this time Assessment: Ashwin Min is a 66yo woman with PMH of HTN, HLD, and ovarian cancer now in remisison who presents for a sudden, transient episode of short-term memory loss concerning for transient global amnesia. However, we will also work her up for other possible etiologies such as new onset seizure or TIA by obtaining routine EEG and MRI brain/MRA head and neck. Although metastasis is low on the differential, given her prior cancer history will obtain MRI brain w/wo contrast for further evaluation. Will also obtain ECHO to complete TIA work-up. Plan: # Neuro -admit to inpatient neurology -MRI brain w/wo contrast to look for str juan or metastasis -MRA head/neck for vessel imaging -Routine EEG to rule-out seizure -ECHO for TIA work-up -Already on ASA 325mg daily and pravasta tin 80mg qhs at home (denies prior stroke or MT and unsure why she is on 325mg ASA as opposed to 81mg) -Continue home doses of ASA and pravasta tin -Hgb A1c and lipid panel pending # GI -continue home pantoprazole Diet: Adult Regular GI prophylaxis: home medication of pantoprazole Adkins present: No Bowel prophylaxis: Docusate-Senna DVT Prophylaxis: VERNON/SCD/Hep sq Code status: Full code Level of care: Observation Discharge Disposition: Likely home pending [facility] Follow up appointments: Pending/[place] Neurology (10th floor [facility], call [phone] for appointment) Can follow-up with Chloé Cruz in [facility] resident clinic if ok with primary team and patient The case was discussed with the radiation physicist General Neurology attending Dr Begum. Patient and family members were updated on the same and all questions answered. The primary team [place] reached at [phone] (general neurology phone) Chloé Cruz PGY-2 [facility] Neurology Neurology staff Teaching physician statement I reviewed the resident's note dated 02/02 I saw and examined this patient. She is now awake with limited recall for the events of yesterday. I discussed the case with Dr. Cruz I personally viewed laboratory studies and imaging. I agree with the plan. Diagnosis: transient global amnesia Level of service: [id number] Minor Dunham MD [id number] Professor of Neurology 02/04/2017 [facility] Plan of Care No Data Provided for This Section Social History Social History Date Source Social History TypeResponse Substance Abuse Use: None. Alcohol Never Smoking Status Never smoker; Exposure to Tobacco Smoke None; Cigarette Smoking Last 365 Days No; Reg Smoking Cessation Counseling No 02/03/2017 [facility] Social History TypeResponse Substance Abuse Use: None. Alcohol Never Smoking Status Never smoker; Exposure to Tobacco Smoke None; Cigarette Smoking Last 365 Days No; Reg Smoking Cessation Counseling No 02/03/2017 [facility] Family History No Data Provided for This Section Advance Directives No Data Provided for This Section Functional Status No Data Provided for This Section
== END 2020-05-04 03:39 | disposition home or self-care (01) ==
LOC: FSED 02:57
DX: M54.41 Lumbago with sciatica, right side (principal); I10 Essential (primary) hypertension
CPT/HCPCS: 99283; J1885

== ENCOUNTER 2020-05-05 04:15 | Emergency (ER) | payer MEDICARE ==
[~2020-05-05] VITALS: Ht 157.5 cm; Wt 86.2 kg
[~2020-05-05 04:15] MED LIST: CYCLOBENZAPRINE5 MG PO; PREDNISONE20 MG PO
[2020-05-05] MEDS ORDERED: METHYLPREDNISOLONE SOD SUCC 125 MG/2ML VIAL IM STA (04:46)
[2020-05-05] MEDS ORDERED: DIPHENHYDRAMINE HCL 25 MG CAP PO ONE (05:00)
[2020-05-05] MEDS ORDERED: FAMOTIDINE 20 MG TAB PO ONE (05:00)
[2020-05-05] MEDS ORDERED: BENADRYL25 M1 PO (05:14)
[2020-05-05] MEDS ORDERED: PEPCID20 MG PO (05:14)
== END 2020-05-05 05:36 | disposition home or self-care (01) ==
LOC: FSED 04:30
DX: R21 Rash and other nonspecific skin eruption (principal); T78.40XA Allergy, unspecified, initial encounter; I10 Essential (primary) hypertension
CPT/HCPCS: 99283

== ENCOUNTER 2020-05-25 05:06 | Emergency (ER) | payer MEDICARE ==
[~2020-05-25] VITALS: Ht 157.5 cm; Wt 86.2 kg
[~2020-05-25 05:06] MED LIST changes: +BENADRYL25 M1 PO; +PEPCID20 MG PO
[2020-05-25] MEDS ORDERED: KETOROLAC TROMETHAMINE 60 MG/2 ML VIAL IM ONE (05:45)
[2020-05-25] MEDS ORDERED: PREDNISONE10 MG PO (05:56)
[2020-05-25] MEDS ORDERED: KETOROLAC TROMETHAMINE 60 MG/2 ML VIAL ONE (06:10)
--- NOTE | 2020-05-25 06:27 | Emergency Department Note ---
History of Present Illnes History of Present Illness Chief Complaint: Extremity Trauma/Pain History of Present Illness This is a 70 year old female with low back/SI pain, and bilateral shoulder pain similar to prior RA pain. Patient with prior episode of bilateral hip/SI pain and seen here 05/04. Got IM Toradol which relieved pain. D/C with rx for flexeril and Tylenol #3. Took one dose of each and developed rash and then seen here for allergic reaction. Relatively pain free until 1 to 2 weeks ago when developed shoulder pain. Saw her electric sealing machine operator who put her on prednisone taper from 30mg to 0 mg over 12 days and got shoulder xray that results are pending. Patient states that tonight low back/sacrum pain returned and at same time bilateral shoulder pain worsened. No trauma. No numbness, tingling, weakness. Historian: Patient Arrival Mode: Car Onset (how long ago): week(s) Location: lowback/sacrum and bilateral shoulders Radiation: Reports non-radiation Severity: unable to specify Duration (how long): week(s) Timing of current episode: unable to specify Progression: waxing and waning Chronicity: recurrent Context: Denies recent illness, Denies trauma/injury Relieving factors: none Exacerbating factors: none Associated symptoms: Denies chest pain, Denies cough, Denies fever/chills, Denies headaches, Denies nausea/vomiting, Denies rash, Denies shortness of breath, Denies syncope Treatments prior to arrival: other (No NSAID) Past Medical/Family History Physician Review I have reviewed the patient's past medical and family history. Any updates have been documented here. Past Medical History Recent Fever: No Clinical Suspicion of Infectio: No New/Unexplained Change in Ment: No Past Medical History: Hypertension, Cancer, Chronic Back Pain, Osteoarthritis Past Surgical History: None Other Surgery: thyroid,hyst,appendix Social History Smoking Cessation: Never Smoker Counseling Performed: No Alcohol Use: None Any Illegal Drug Use: No Physically hurt or threatened: No Other Any Pre-Existing Lines (PICC,: No Review of Systems Review of Systems Constitutional: Denies chills, Denies fever EENTM: Denies nose congestion, Denies throat pain Cardiovascular: Denies chest pain Respiratory: Denies cough, Denies dyspnea Gastrointestinal: Denies abdominal pain, Denies diarrhea, Denies nausea, Denies vomiting Genitourinary: Denies dysuria Musculoskeletal: Reports as per HPI, Reports back pain Integumentary: Denies rash Neurological: Denies headache, Denies numbness, Denies paresthesia Endocrine: Denies increased urination Hematological/Lymphatic: Denies easy bruising, Denies swollen glands Physical Exam Related Data Allergies: Coded Allergies: No Known Allergies (Unverified , 05/04/20) Triage Vital Signs Vital Signs Date Time Temp Pulse Resp B/P (MAP) Pulse Ox O2 Delivery O2 Flow Rate FiO2 05/25/20 05:20 99.2 79 18 142/91 100 Room Air Physical Exam CONSTITUTIONAL Constitutional: Present well-developed, Present well-nourished HENT HENT: Present normocephalic, Present atraumatic, Present oropharynx clear/moist, Present nose normal HENT L/R: Present left ext ear normal, Present right ext ear normal EYES Eyes: Reports PERRL, Reports conjunctivae normal NECK Neck: Present ROM normal PULMONARY Pulmonary: Present effort normal, Present breath sounds normal CARDIOVASCULAR Cardiovascular: Present regular rhythm, Present heart sounds normal, Present capillary refill normal, Present normal rate GASTROINTESTINAL Abdominal: Present soft, Present nontender, Present bowel sounds normal GENITOURINARY Genitourinary: Present exam deferred SKIN Skin: Present warm, Present dry MUSCULOSKELETAL Musculoskeletal: Present ROM normal, Present other (No pain with bilateral straight leg raise); Absent edema, Absent deformity, Absent tenderness, Absent swelling NEUROLOGICAL Neurological: Present alert, Present oriented x 3, Present DTRs normal, Present no gross motor or sensory deficits, Present other (5/5 strength X 4 extremities including flexor hallicus longus. Sensation intact X 4 extremities. No pain with palpation of low back/hips/sacrum/shoulders); Absent sensory deficit, Absent abnormal DTRs, Absent abnormal coordination, Absent abnormal gait, Absent weakness PSYCHOLOGICAL Psychological: Present mood/affect normal, Present judgement normal Assessment & Plan Medical Decision Making MDM Xray not indicated due to no trauma and pending results of out patient Xray. Patient with rash after flexeril and tylenol #3 - will avoid (had also been on bactrim for one week before rash). Will restart current prednisone taper, add NSAID. Reassessment Reassessment Pain improved with toradol Assessment & Plan Final Impression: (1) Shoulder pain, bilateral (2) Shoulder pain (3) Low back pain due to bilateral sciatica Depart Disposition: HOME, SELF-CARE Last Vital Signs Date Time Temp Pulse Resp B/P (MAP) Pulse Ox O2 Delivery O2 Flow Rate FiO2 05/25/20 05:20 99.2 79 18 142/91 100 Room Air Home Meds Active Scripts Prednisone (PREDNISONE) 10 Mg Tab, 3 TAB PO DAILY, #20 TAB Prov:FAWAD LEO MD 05/25/20 Famotidine (PEPCID) 20 Mg Tablet, 20 MG PO Q12HR, #20 TAB Prov:JOVANNI LOGAN 05/05/20 Diphenhydramine Hcl (BENADRYL) 25 Mg Capsule, 50 MG PO Q6H PRN for ITCHING, #40 Prov:JOVANNI LOGAN 05/05/20 Cyclobenzaprine Hcl (FLEXERIL) 5 Mg Tablet, 10 MG PO Q8H PRN for MODERATE PAIN (4-6), #30 TAB TAKE AFTER PREDNISONE TO CONTROL PAIN IF NEED BE Prov:JOVANNI LOGAN 05/04/20 Prednisone (PREDNISONE) 20 Mg Tab, 60 MG PO DAILY PRN for MODERATE PAIN (4-6), #18 TAB take all 3 20 mg pills at once Prov:JOVANNI LOGAN 05/04/20 Medications in the ED Ketorolac Tromethamine 60 mg ONCE ONCE IM Last administered on 05/25/20at 06:06; Admin Dose 60 MG; Start 05/25/20 at 05:45; Stop 05/25/20 at 05:54; Status DC Ketorolac Tromethamine 60 mg STK-MED ONCE .ROUTE ; Start 05/25/20 at 06:10; Stop 05/25/20 at 06:03; Status DC FAWAD LEO MD May 25, 2020 06:27
--- OUTSIDE RECORDS SUMMARY | 2020-05-25 10:33 | XMS REPORT | Clinical Summary ---
Author Author [facility] Organization [facility] Address Unknown Phone Unavailable Care Team Providers Care Facility Maintenance Helper Name Role Phone Asked, No Pcp PCP [...] APPE NDECTOMY, LAPAROSCOPIC; Surgeon: Irasema Diamond; Location: [facility]; Service: General; Laterality: Right; Medical History Medical [...] Not on file Results Not on fileafter 05/25/2019 Insurance Type Payer Benefit Subscriber ID Effective Phone Address Plan / Dates Group Medicare MEDICARE MEDICARE [id number] 2017-P [place], [place] A [place] resent [place] B Commercial AARP AARP [id number] 2017-P SUPPLEMENT resent Advance Directives For more information, please contact: [phone] Patient Primary Care Nurse Explanation Type Date Recorded Advance Directives, Living Will and Medical Power of Development Mgr
--- OUTSIDE RECORDS SUMMARY | 2020-05-25 10:33 | XMS REPORT | Continuity of Care Document ---
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 Hypertensive disorder, systemic arterial (disorder) Resolved Problem 02/27/2017 [facility] Hyperthyroidism (disorder) Res olved Problem [facility] Arthritis (disorder) Resolved Problem 02/27/2017 left hip and spine [facility] Localized osteoarthritis of knees, bilateral Active Problem 05/17/2020 Armen Pickett Psoriasis Active Problem 05/17/2020 Armen Pickett Neck pain Active Problem 11/02/2019 Armen Pickett Polyarthralgia Active Problem 11/02/2019 Armen Reinaer Psoriatic arthritis Active Problem 05/17/2020 Armen Reinaer Long-term use of high-risk medication Active Problem Armen Reinaer Need for prophylactic vaccination and in oculation against influenza Active Diag nosis 04/15/2017 Armen Pickett Knee pain, right Active Problem 11/02/2019 Armen Pickett Knee pain, left Active Problem 11/02/2019 Armen Reinaer Back pain Active Problem 05/17/2020 Armen Pickett Osteopenia of multiple sites A ctive Problem Armen Pickett Vitamin D deficiency Active Problem 05/17/2020 Armen Pickett Low vitamin D level Active Problem 05/17/2020 Armen Reinaer Shoulder pain, right Active Diagnosis 02/27/2020 Armen Pickett TRANSIENT GLOBAL AMNESIA Active [facility] 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 [facility] Medications Medication Details Route Status Patient Instructions Ordering Provider Order Date Source Medrol Dose Malik as directed Orally Active 4mg Orally once a day [place]ey 05/10/2020 Armen Pickett Klor-Con 1 packet with food Orally Active 20 MEQ Orally Once a day Garcia 03/06/2020 Armen Pickett Vitamin D (Ergocalciferol) 1 c apsule Orally Active 1.25 MG (79327 UT) Orally once a week [place] 10/18/2019 Armen Pickett Vitamin D (Ergocalciferol) 1 c apsule Orally Active 1.25 MG (47793 UT) Orally once a week [facility] 07/26/2019 Armen Pickett Alendronate Sodium TAKE 1 [...] Orally Active 2.5mg Orally Once a week Jaun 04/20/2017 Armen Pickett Pravastatin Notes: (Same as: Yuliya west) Inactive 02/04/2017 [facility] Pravastatin 80 mg, Route: PO, Drug form: TAB, Daily, Dosing Weight 90.909, kg, Start date: 02/03/17 9:00:00 CDT, Duration: 30 day, Stop date: 03/04/17 9:00:00 CDT No Longer Active [facility] Hydrochlorothiazide 12.5 MG / Lisinopril 20 MG Oral Tablet 1 tab, Route: PO, Drug Form: TAB, Dosing Weight 90.909, kg, Daily, Start date: 02/03/17 9:00:00 CDT, Duration: 30 day, Stop date: 03/04/17 9:00:00 CDT Inactive 02/03/2017 [facility] Folic Acid Notes: (Same as: Fo lvite) Inactive 02/03/2017 [facility] Aspirin 325 MG Oral Tablet Not es: Take with food. Inactive 02/03/2017 [facility] Hydrochlorothiazide 25 mg Hydr ochlorothiazide 25 mg, 12.5 mg, 0.5 tab, Drug form: MISC, Route: PO, Daily, 02/03/17 9:00:00 CDT, Duration: 30 day, Stop date: 03/04/17 9:00:00 CDT Inactive 02/03/[facility] lisinopril Notes: (Same as: Pr inivil, Zestril) Inactive 02/03/2017 [facility] Streptococcus pneumoniae serotype 1 caps ular antigen diphtheria [id number] protein conjugate vaccine / Streptococcus pneumoniae serotype 14 capsular antigen diphtheria [id number] protein conjugate vaccine / Streptococcus pneumoniae serotype 18C capsular antigen d Notes: Shake well prior to use (Same as: Prevnar 13) Inactive 02/03/2017 [facility] Docusate Sodium 50 MG / sennosides, INTERMEDIATE 8.6 MG Oral Tablet Notes: (Same as Senokot-S) Equiv. to Rosalba-Colace. Inactive 02/03/2017 [facility] heparin Notes: porcine heparin Inactive 02/03/2017 [facility] Versed 1 mg, Route: IVP, PRN, Dosing Weight 90.909, kg, PRN Anxiety, Start date: 02/02/17 23:57:00 CDT, Duration: 30 day, Stop date: 03/04/17 23:56:00 CDT Inactive 02/03/2017 [facility] Ativan 1 mg, Route: IV, ONCE, Dosing Weight 90.909, kg, PRN Agitation, Start date: 02/02/17 23:33:00 CDT Inactive 02/03/2017 [facility] methotrexate 10 mg oral tablet 10 mg = 1 tab, PO, Q7D, 0 Refill(s) Active 02/03/2017 [facility] Aspirin 325 MG Oral Tablet 325 mg = 1 tab, PO, Daily, 0 Refill(s) Active 02/03/2017 [facility] Alendronic acid 40 MG Oral Tablet 40 mg = 1 tab, PO, Q7D, 0 Refill(s) Active 02/03/2017 [facility] Folic Acid 1 mg, Daily, 0 Refi ll(s) Active 02/03/2017 [facility] pravastatin 80 mg oral tablet 80 mg = 1 tab, PO, Daily, 0 Refill(s) Active 02/03/2017 [facility] Hydrochlorothiazide 12.5 MG / Lisinopril 20 MG Oral Tablet 1 tab, PO, Daily, 0 Refill(s) Active 02/03/2017 [facility] ketOROLAC 15 mg/mL injectable solution 15 mg, Route: IVP, Drug form: INJ, ONCE, Dosing Weight 72.727, kg, Priority: STAT, Start date: 02/02/17 18:18:00 CDT, Stop date: 02/02/17 18:18:00 CDT Inactive 02/02/2017 [facility] Compazine 10 mg, Route: IV, ON CE, Dosing Weight 72.727, kg, Start date: 02/02/17 18:17:00 CDT, Stop date: 02/02/17 18:17:00 CDT Inactive 02/02/2017 [facility] Pravastatin Sodium 1 tablet Orally Active 80 MG Orally Once a day Juan Pickett Methotrexate TAKE 5 TABLETS BY MOUTH ONCE EVERY WEEK NA Active 2.5 MG Juan Pickett Levothyroxine Sodium 1 tablet Orally Active 25 MCG Orally Once a day Juan Pickett Lisinopril-Hydrochlorothiazide 1 tablet Orally Active 20-12.5 MG Orally Once a day Juan Pickett Rock Aspirin 1 tablet Orally Active 325 MG Orally Once a da y Juanzabrina Pickett Pantoprazole Sodium 1 tablet Orally Active 40 MG Orally Once a day Juan Pickett Folic Acid 1 tablet Orally Active 1 MG Orally Once a day Juan Pickett Alendronate Sodium 1 tablet Orally Active 70 MG Orally Once a week Juan Armen Pickett Pantoprazole Sodium 1 tablet Orally Active 40 MG Orally Once a day Garcia Armen Pickett Levothyroxine Sodium 1 tablet Orally Active 25 MCG Orally Once a day Garcia Armen Pickett Alendronate Sodium 1 tablet Orally Active 70 MG Orally once a week Garcia Armen Pickett Rock Aspirin 1 tablet Orally Active 325 MG Orally Once a da y Garciaclaudia Pickett Lisinopril-Hydrochlorothiazide 1 tablet Orally Active 20-12.5 MG Orally Once a day [facility] Armen Pickett Pravastatin Sodium 1 tablet Orally Active 80 MG Orally Once a day [facility] Armen Pickett Otezla 1 tablet Orally Active 30 MG Orally Twice a da y Garcia Cristian Pickett Tylenol Arthritis Pain 1 table t as needed Orally Active 650 MG Orally prn Garciaclaudia Pickett Aspirin 81 1 tablet Orally Active 81 MG Orally Once a day Garcia Cristian Pickett Rosuvastatin Calcium 1 tablet Orally Active 20 MG Orally Once a day Garcia Armen Pickett PredniSONE TAKE 1 TABLET BY [facility] EVERY DAY NA Active 5 MG Garcia Cristian Pickett Allergies, Adverse Reactions, Alerts Substance Category Reaction Severity Reaction type Status Date Reported Comments Source Synvisc One Adverse Reaction pain, swelling Adverse Reactio n Active 02/16/2020 Armen Pickett Immunizations Immunization Date Given Site Status Last Updated Comments Source Flu Vaccine 04/12/2017 completed Armen Pickett pneumococcal 13-valent vaccine 02/03/2017 Not Given [facility] Results Order Name Results Value Reference Range Date Interpretation Comments Source ANEMIA STUDY Folate Lvl 78.7 >=3.0 ng/mL 02/03/2017 [facility] ANEMIA STUDY Vitamin B12 Lvl 326 254 - 1320 02/03/2017 [facility] CHEM PANEL Lactic Acid Lvl 0.6 0.5 - 2.2 02/03/2017 [facility] CHEM PANEL Phosphorus 3.3 2.5 - 4.5 02/03/2017 [facility] CHEM PANEL eGFR 72 02/03/2017 [...] should be multiplied by the estimated BMI. [facility] CHEM PANEL Calcium Lvl 8.6 8.5 - 10.5 02/03/2017 [facility] CHEM PANEL CO2 26 24 - 32 02/03/2017 [facility] CHEM PANEL Creatinine Lvl 0.84 0.50 - 1.40 02/03/2017 [facility] CHEM PANEL Sodium Lvl 141 135 - 145 02/03/2017 [facility] CHEM PANEL Chloride Lvl 106 95 - 109 02/03/2017 [facility] CHEM PANEL Potassium Lvl 3.9 3.5 - 5.1 02/03/2017 [facility] CHEM PANEL Glucose Lvl 104 70 - 99 02/03/2017 [facility] CHEM PANEL BUN 19 7 - 22 02/03/2017 [facility] CHEM PANEL AGAP 12.9 10.0 - 20.0 02/03/2017 [facility] CHEM PANEL Magnesium Lvl 2.2 1.8 - 2.4 02/03/2017 [facility] HEMATOLOGY WBC 5.6 3.7 - 10.4 02/03/2017 [facility] HEMATOLOGY MCV 89.6 80.0 - 98.0 02/03/2017 [facility] HEMATOLOGY RBC 3.85 4.20 - 5.40 02/03/2017 [facility] HEMATOLOGY RDW 14.8 11.5 - 14.5 02/03/2017 [facility] HEMATOLOGY Platelet 243 133 - 450 02/03/2017 [facility] HEMATOLOGY MCH 30.6 27.0 - 31.0 02/03/2017 [facility] HEMATOLOGY MCHC 34.1 32.0 - 36.0 02/03/2017 [facility] HEMATOLOGY MPV 8.3 7.4 - 10.4 02/03/2017 [facility] HEMATOLOGY Hgb 11.8 12.0 - 16.0 02/03/2017 [facility] HEMATOLOGY Hct 34.5 36.0 - 48.0 02/03/2017 [facility] HEMATOLOGY Segs-Bands # 3.8 1.5 - 8.1 02/03/2017 [facility] HEMATOLOGY Lymphocytes # 1.2 1.0 - 5.5 02/03/2017 [facility] HEMATOLOGY Monocytes # 0.5 0.0 - 0.8 02/03/2017 [facility] HEMATOLOGY Basophils 0.2 0.0 - 1.0 02/03/2017 [facility] HEMATOLOGY Eosinophils 0.6 0.0 - 4.0 02/03/2017 [facility] HEMATOLOGY Monocytes 9.3 2.0 - 12.0 02/03/2017 [facility] HEMATOLOGY Segs 68.1 45.0 - 75.0 02/03/2017 [facility] HEMATOLOGY Lymphocytes 21.8 20.0 - 40.0 02/03/2017 [facility] LIPIDS CHD Risk 2.26 3.90 - 5.80 02/03/2017 [facility] LIPIDS LDL (Calculated) 60 <=99 mg/dL 02/03/2017 [facility] LIPIDS HDL 58 >=61 mg/dL 02/03/2017 [facility] LIPIDS VLDL 13 02/03/2017 [facility] LIPIDS Chol 131 <=199 mg/dL 02/03/2017 [facility] LIPIDS Trig 63 <=149 mg/dL 02/03/2017 [facility] PARATHYROID PROFILE Ca Norm WB 1.07 1.05 - 1.25 02/03/2017 [facility] PARATHYROID PROFILE Ca Ion WB 1.06 1.05 - 1.25 02/03/2017 [facility] SPECIAL CHEMISTRY Hgb A1C 5.2 <=5.6 % 02/03/2017 [facility] DRUG SCREEN U Amph Scr Nega tive *NA* (02/02/17 6:02 PM) Negative 02/02/2017 [facility] DRUG SCREEN U Dolly Scr Nega tive *NA* (02/02/17 6:02 PM) Negative 02/02/2017 [facility] DRUG SCREEN U Benzodia Scr Nega tive *NA* (02/02/17 6:02 PM) Negative 02/02/2017 [facility] DRUG SCREEN U Cannab Scr Nega tive *NA* (02/02/17 6:02 PM) Negative 02/02/2017 [facility] DRUG SCREEN U Cocaine Scr Nega tive *NA* (02/02/17 6:02 PM) Negative 02/02/2017 [facility] DRUG SCREEN UDS Note See Note *NA* (02/02/17 6:02 PM) 02/02/2017 [facility] DRUG SCREEN U Opiate Scr Nega tive *NA* (02/02/17 6:02 PM) Negative 02/02/2017 [facility] DRUG SCREEN U Phencyc Scr Nega tive *NA* (02/02/17 6:02 PM) Negative 02/02/2017 [facility] URINE AND STOOL UA WBC 0-2 /HPF None Seen /HPF 02/02/2017 [facility] URINE AND STOOL UA Bacteria Few /HPF None Seen /HPF 02/02/2017 [facility] URINE AND STOOL UA RBC None Seen (02/02/17 6:02 PM) 0 - 2 02/02/2017 [facility] URINE AND STOOL UA Sq Epi Few /LPF Few /LPF 02/02/2017 [facility] URINE AND STOOL UA Ketones Negative *NA* (02/02/17 6:02 PM) Negative 02/02/2017 [facility] URINE AND STOOL UA Bili Negative *NA* (02/02/17 6:02 PM) Negative 02/02/2017 [facility] URINE AND STOOL UA Leuk Est Trace *ABN* (02/02/17 6:02 PM) Negative 02/02/2017 [facility] URINE AND STOOL UA Blood Negative (02/02/17 6:02 PM) Negative 02/02/2017 [facility] URINE AND STOOL UA Nitrite Negative (02/02/17 6:02 PM) Negative 02/02/2017 [facility] URINE AND STOOL UA Urobilinogen 0.2 0.1 - 1.0 02/02/2017 [facility] URINE AND STOOL UA Protein Negative (02/02/17 6:02 PM) Negative 02/02/2017 [facility] URINE AND STOOL UA pH 7.0 5.0 - 8.0 02/02/2017 [facility] URINE AND STOOL UA Glucose Negative (02/02/17 6:02 PM) Negative 02/02/2017 [facility] URINE AND STOOL UA Spec Grav 1.010 <=1.030 02/02/2017 [facility] URINE AND STOOL UA Color Yellow *NA* (02/02/17 6:02 PM) Yellow 02/02/2017 [facility] URINE AND STOOL UA Turbidity Slight Cloudy (02/02/17 6:02 PM) Clear 02/02/2017 [facility] CHEM PANEL Lactic Acid WB 1.4 0.5 - 2.2 02/02/2017 [facility] CARDIAC ENZYMES Troponin-I <0.02 0.00 - 0.40 02/02/2017 [facility] CHEM PANEL eGFR 54 02/02/2017 [...] should be multiplied by the estimated BMI. [facility] CHEM PANEL Chloride Lvl 105 95 - 109 02/02/2017 [facility] CHEM PANEL Calcium Lvl 9.1 8.5 - 10.5 02/02/2017 [facility] CHEM PANEL CO2 25 24 - 32 02/02/2017 [facility] CHEM PANEL Potassium Lvl 3.7 3.5 - 5.1 02/02/2017 [facility] CHEM PANEL Sodium Lvl 139 135 - 145 02/02/2017 [facility] CHEM PANEL Creatinine Lvl 1.07 0.50 - 1.40 02/02/2017 [facility] CHEM PANEL BUN 18 7 - 22 02/02/2017 [facility] CHEM PANEL Glucose Lvl 111 70 - 99 02/02/2017 [facility] CHEM PANEL Alk Phos 75 39 - 136 02/02/2017 [facility] CHEM PANEL Bili Total 0.8 0.2 - 1.3 02/02/2017 [facility] CHEM PANEL Albumin Lvl 4.3 3.5 - 5.0 02/02/2017 [facility] CHEM PANEL ALT 24 0 - 65 02/02/2017 [facility] CHEM PANEL AST 25 0 - 37 02/02/2017 [facility] CHEM PANEL Total Protein 7.5 6.4 - 8.4 02/02/2017 [facility] CHEM PANEL B/C Ratio 17 6 - 25 02/02/2017 [facility] CHEM PANEL AGAP 12.7 10.0 - 20.0 02/02/2017 [facility] CHEM PANEL Globulin 3.2 2.7 - 4.2 02/02/2017 [facility] CHEM PANEL A/G Ratio 1.3 0.7 - 1.6 02/02/2017 [facility] HEMATOLOGY PTT 26.1 22.9 - 35.8 02/02/2017 [facility] HEMATOLOGY PT 13.0 12.0 - 14.7 02/02/2017 [facility] HEMATOLOGY INR 0.96 0.85 - 1.17 02/02/2017 [facility] HEMATOLOGY MPV 8.2 7.4 - 10.4 02/02/2017 [facility] HEMATOLOGY Platelet 278 133 - 450 02/02/2017 [facility] HEMATOLOGY RDW 14.8 11.5 - 14.5 02/02/2017 [facility] HEMATOLOGY MCHC 33.9 32.0 - 36.0 02/02/2017 [facility] HEMATOLOGY MCH 30.1 27.0 - 31.0 02/02/2017 [facility] HEMATOLOGY Hgb 12.5 12.0 - 16.0 02/02/2017 [facility] HEMATOLOGY Hct 37.0 36.0 - 48.0 02/02/2017 [facility] HEMATOLOGY MCV 88.8 80.0 - 98.0 02/02/2017 [facility] HEMATOLOGY WBC 5.6 3.7 - 10.4 02/02/2017 [facility] HEMATOLOGY RBC 4.16 4.20 - 5.40 02/02/2017 [facility] HEMATOLOGY Monocytes # 0.4 0.0 - 0.8 02/02/2017 [facility] HEMATOLOGY Segs-Bands # 4.0 1.5 - 8.1 02/02/2017 [facility] HEMATOLOGY Lymphocytes # 1.1 1.0 - 5.5 02/02/2017 [facility] HEMATOLOGY Monocytes 7.8 2.0 - 12.0 02/02/2017 [facility] HEMATOLOGY Eosinophils 2.1 0.0 - 4.0 02/02/2017 [facility] HEMATOLOGY Basophils 0.2 0.0 - 1.0 02/02/2017 [facility] HEMATOLOGY Segs 70.5 45.0 - 75.0 02/02/2017 [facility] HEMATOLOGY Lymphocytes 19.4 20.0 - 40.0 02/02/2017 [facility] HEMATOLOGY Eosinophils # 0.1 0.0 - 0.5 02/02/2017 [facility] Pathology Reports No Data Provided for This Section Diagnostic Reports Report Value Date Source Cardiac SPECT multi studies NM Nuclear gated myocardial perfusion scan performed as per protocol at the nuclear medicine lab at [facility]. Lexiscan injected 0.4 mg intravenously as a stress agent. Cardiolite injected 11 mCi for resting protocol 30 mCi for stress protocol. Impression. Mild mild anterior wall ischemia noted. Left ventricular ejection fraction 60%, no evidence of wall motion abnormality noted. Abnormal nuclear stress test with mild anterior wall ischemia. 02/24/2017 [facility] Neck wo contrast MRA MRI OF TH E BRAIN MRA OF THE BRAIN MRA OF THE NECK DATE: COMPARISON: HISTORY: TECHNIQUE: Multiplanar MR imaging was performed utilizing T1, T2, diffusion, and susceptibility weighting. MR angiography of the intracranial circulation was performed utilizing 3-D fufb-ga-iqxfvi technique. Maximum intensity projection, MIP reformatted images were provided. Source images were also reviewed. MR angiography was performed from the upper thorax through the skull base utilizing 2-D irzd-lh-kvmodn technique. 3-D atgk-xt-ormuzi technique through the carotid bifurcations was also [...] major vascular abnormality. UT SECTION: Neuro 02/03/2017 [facility] Brain wo contrast MRI MRI OF T HE BRAIN MRA OF THE BRAIN MRA OF THE NECK DATE: COMPARISON: HISTORY: TECHNIQUE: Multiplanar MR imaging was performed utilizing T1, T2, diffusion, and susceptibility weighting. MR angiography of the intracranial circulation was performed utilizing 3-D oylf-gr-bceddr technique. Maximum intensity projection, MIP reformatted images were provided. Source images were also reviewed. MR angiography was performed from the upper thorax through the skull base utilizing 2-D dtnc-aj-kwpieh technique. 3-D jwif-uz-cvostv technique through the carotid bifurcations was also [...] major vascular abnormality. UT SECTION: Neuro 02/03/2017 [facility] Brain wo contrast MRA MRI OF T HE BRAIN MRA OF THE BRAIN MRA OF THE NECK DATE: COMPARISON: HISTORY: TECHNIQUE: Multiplanar MR imaging was performed utilizing T1, T2, diffusion, and susceptibility weighting. MR angiography of the intracranial circulation was performed utilizing 3-D bjrb-zs-zwhehf technique. Maximum intensity projection, MIP reformatted images were provided. Source images were also reviewed. MR angiography was performed from the upper thorax through the skull base utilizing 2-D fkdp-ay-zowtcn technique. 3-D hytb-ev-dvpfpo technique through the carotid bifurcations was also [...] major vascular abnormality. [place] SECTION: Neuro 02/03/2017 [facility] Brain wo contrast CT EXAM: [...] acute intracranial abnormality. UT SECTION: Neuro 02/02/2017 [facility] Chest 1view DX EXAM: XR [...] identified. IMPRESSION: No acute radiographic abnormality. 02/02/2017 [facility] Consultation Notes No Data Provided for This Section Discharge Summaries No Data Provided for This Section History and Physicals No Data Provided for This Section Vital Signs Vital Sign Value Date Comments Source Weight 190.1 02/20/2020 [facility] Height 62 0 02/20/2020 [facility] Temperature Oral (F) 97.3 F 02/20/2020 Armen Pickett Heart Rate 66 02/20/2020 Armen Pickett Diastolic (mm Hg) 60 02/20/2020 Armen Pickett Systolic (mm Hg) 102 02/20/2020 Armen Pickett Weight 190.5 02/16/2020 Armen Pickett Height 62 [...] Armen Pickett Diastolic (mm Hg) 84 10/26/2019 Amren Pickett Systolic (mm Hg) 112 10/26/2019 Armen [...] Pickett Temperature Oral (F) 97.8 F 02/01/2019 Armen Pickett Heart Rate 52 02/01/2019 Armen Pickett [...] Temperature Oral (F) 98.5 F 03/14/2018 Armen Ipckett Heart Rate 70 03/14/2018 Armen Pickett Diastolic [...] Pickett Temperature Oral (F) 98.1 F 02/03/[address] [facility] Systolic (mm Hg) 124 02/03/[address] [facility] Diastolic (mm Hg) 75 02/03/[address] [facility] Heart Rate 64 02/03/[address] [facility] Respitory Rate 18 02/03/[address] [facility] Systolic (mm Hg) 139 02/03/[address] [facility] Diastolic (mm Hg) 77 02/03/2017 [facility] Respitory Rate 18 02/03/2017 [facility] Temperature Oral (F) 96.8 F 02/03/2017 [facility] Heart Rate 72 02/03/2017 [facility] Heart Rate 61 02/03/2017 [facility] Temperature Oral (F) 96.9 F 02/03/2017 [facility] Respitory Rate 18 02/03/2017 [facility] Systolic (mm Hg) 101 02/03/2017 [facility] Diastolic (mm Hg) 58 02/03/2017 [facility] Height 157.48 cm 02/03/2017 [facility] Weight 90.909 02/03/2017 [facility] BMI Calculated 36.66 02/03/2017 [facility] Weight 72.727 02/02/2017 [facility] BMI Calculated 29.33 02/02/2017 [facility] Height 157.48 cm 02/02/2017 [facility] Encounters Location Location Details Encounter Type Encounter Number Reason For Visit Attending Provider ADM Date DC Date Status Source [facility] Observation [id number] Daniel Smithsey 02/02/2017 02/04/2017 [facility] [id number] Refugio SolizRayna 02/24/2017 02/25/2017 [facility] Procedures Procedure Code Date Perfomer Comments Source Hysterectomy<sup>1</sup> [id number] uterus CA [facility] Assessment and Plan Assessment and [...] Per the patient's , she was at [facility] with two of her great-granchildren when at [...] that has happened since she arrived to [facility] ER slightly after 4pm. Once she arrived at [facility], she was noted to be back near baseline, with only minor recall difficulties when asked to remember three words. She was alert and oriented x3 and answered questions appropriately. She does report a current left-sided headache over her restoration region which she describes as pressure-like in nature. She is unsure of exactly when the headache began, but denies any associated photophobia, phonophobia, nausea, or vomiting. 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 Once she arrived at [facility], she was noted to be back near baseline, with only minor recall difficulties when asked to remember three words. She was alert and oriented x3 and answered questions appropriately. She does report a current left-sided headache over her restoration region which she describes as pressure-like in nature. She is unsure of exactly when the headache began, but denies any associated photophobia, phonophobia, nausea, or vomiting. She reports a history of migraine headaches typically located over her left restoration region, but states they are infrequent (last [...] qhs at home (denies prior stroke or SD and unsure why she is on 325mg ASA as opposed to 81mg) -Continue home doses of ASA and pravasta tin -Hgb A1c and lipid panel pending # GI -continue home pantoprazole Diet: Adult Regular GI prophylaxis: home medication of pantoprazole Adkins present: No Bowel prophylaxis: Docusate-Senna DVT Prophylaxis: VERNON/SCD/Hep sq Code status: Full code Level of care: Observation Discharge Disposition: [facility] [facility] (10th floor [facility], call [phone] for appointment) Can follow-up with Chloé Cruz in [facility] resident clinic if ok with primary team and patient The case was discussed with the senior analytic consultant General Neurology attending Dr Begum. Patient and family members were updated on the same and all questions answered. [place] [phone] (general neurology phone) Chloé Cruz PGY-2 [facility] Neurology Neurology staff Teaching physician statement I reviewed the resident's note dated 02/02 I saw and examined this patient. She is now awake with limited recall for the events of yesterday. I discussed the case with Dr. Cruz I personally viewed laboratory studies and imaging. I agree with the plan. Diagnosis: transient global amnesia Level of service: [id number] Minor Dunham MD [id number] Professor of Neurology 02/04/2017 [facility] Plan of Care No Data Provided for This Section Social History Social History Date Source Social History TypeResponse Substance Abuse Use: None. Alcohol Never Smoking Status Never smoker; Exposure to Tobacco Smoke None; Cigarette Smoking Last 365 Days No; Reg Smoking Cessation Counseling No 02/03/2017 [facility] Social History TypeResponse Substance Abuse Use: None. Alcohol Never Smoking Status Never smoker; Exposure to Tobacco Smoke None; Cigarette Smoking Last 365 Days No; Reg Smoking Cessation Counseling No 02/03/2017 [facility] Family History No Data Provided for This Section Advance Directives No Data Provided for This Section Functional Status No Data Provided for This Section
--- OUTSIDE RECORDS SUMMARY | 2020-05-25 10:34 | XMS REPORT | Continuity of Care Document ---
Author Author [facility] t Organization [facility] Address [address] [place] [address] Phone Unavailable Care Team Providers Care Geneticist Name Role Phone MD REFUGIO WAY PCP Sergey Way Attphys Anshu Dunham Attphys Anshu Dunham Admphys Payers Payer Name Policy Type Policy Number Effective Date Expiration Date S elizabeth [facility] [id number] 2015 00:00:00 [facility] Medicare A & B [id number] 2014 00:00:00 [facility] Problems Condition Name Condition Details Condition Category Status Onset Date Resolution Date Last Treatment Date Treating Clinician Comments Source Ruptured appendix Ruptured appendix Disease Active 2017-12-12 00:00:00 Kolton Martino 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 02/19/2017 [facility] Active 2017-02-19 00:00:00 2017-02-24 09:42:00 Oliver Figueroa AMS AMS Active 02/02/2017 [facility] Diagnosis Active 2017-02-02 00:00:00 2017-02-02 21:18:00 Oliver Figueroa AMNESIA, GLOBAL TRANSIENT AMNE TRINA, GLOBAL TRANSIENT Active 02/02/2017 [facility] Diagnosis Active 2017-02-02 00 :00:00 2017-02-03 15:05:00 Oliver Figueroa Sciatica Problem Active [facility] Allergic reaction Problem Active [facility] Gastroesophageal reflux disease (disorder) Gastroesophageal reflux disease (disorder) Resolved Problem 02/27/2017 [facility] Problem Resolved 2017-02-27 01:42:53 Oliver Figueroa Hyperlipidemia (disorder) Hype rlipidemia (disorder) Resolved Problem 02/27/2017 [facility] Problem Resolved 2017-02-27 01:42:53 [facility] Hypertensive disorder, systemic arterial (disorder) Hypertensive disorder, systemic arterial (disorder) Resolved Problem 02/27/2017 [facility] Problem Resolved 2017-02-27 01:42:53 Oliver Yaoann Hyperthyroidism (disorder) Hyp erthyroidism (disorder) Resolved Problem 02/27/2017 [facility] Problem Resolved 2017-02-27 01:42:53 [facility] Arthritis (disorder) Arth ritis (disorder) Resolved Problem 02/27/2017 left hip and spine [facility] Problem Resolved 2017-02-27 01:42:53 [facility] Localized osteoarthritis of knees, bilateral Localized osteoarthritis of knees, bilateral Active Problem 05/17/2020 Armen Pickett Problem Active 2020-05-17 03:45:19 Oliver Yaoann Psoriasis Psor iasis Active Problem 05/17/2020 Armen Pickett Problem Active 2020-05-17 03:45:19 Oliver Figueroa Neck pain Neck pain Active Problem 11/02/2019 Armen Reinaer Problem Active 2019-11-02 02:45:09 Oliver Yaoann Polyarthralgia Poly arthralgia Active Problem 11/02/2019 Armen Pickett Problem Active 2019-11-02 02:45:09 Oliver Yaoann Psoriatic arthritis Psor iatic arthritis Active Problem 05/17/2020 Armen Pickett Problem Active 2020-05-17 03:45:19 Oliver Yaoann Long-term use of high-risk medication Long-term use of high-risk medication Active Problem 05/17/2020 Armen Pickett Problem Active 2020-05-17 03:45:19 Oliver Yaoann Need for prophylactic vaccination and inoculation agai nst influenza Need for prophylactic vaccination and inoculation against influenza Active Diagnosis 04/15/2017 Armen Pickett Diagnosis Active 2017-04-15 02:46:24 Oliver Figueroa Knee pain, right Knee pain, right Active Problem 11/02/2019 Armen Pickett Problem Active 2019-11-02 02:45:09 Oliver Figueroa Knee pain, left Knee pain, left Active Problem 11/02/2019 Armen Pickett Problem Active 2019-11-02 02:45:09 Oliver Figueroa Back pain Back pain Active Problem 05/17/2020 Armen Pickett Problem Active 2020-05-17 03:45:19 [facility] Osteopenia of multiple sites O steopenia of multiple sites Active Problem 05/17/2020 Armen Pickett Problem Active 2020-05-17 03:45:19 Oliver Figueroa Vitamin D deficiency Norma min D deficiency Active Problem 05/17/2020 Armen Pickett Problem Active 2020-05-17 03:45:19 Oliver Figueroa Shoulder pain, right Shou lder pain, right Active Diagnosis 02/27/2020 Armen Pickett Diagnosis Active 2020-02-27 02:45:48 [facility] TRANSIENT GLOBAL AMNESIA SHANNON SIENT GLOBAL AMNESIA Active [facility] Diagnosis Active 2017-02-03 15:05:00 Oliver Figueroa 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 [facility] Active 2017-02-24 09:42:00 Oliver Figueroa Allergies, Adverse Reactions, Alerts Allergy Name Allergy Type Status Severity Reaction(s) Onset Date Inacti ve Date Treating Clinician Comments Source Synvisc One Synvisc One Active pain, swelling 2020-02-16 00:00:00 Oliver Figueroa Family History Family Member Diagnosis Comments Start Date Stop Date Source Natural father Heart disease [facility] Natural father Hyperlipidemia [place] [employer] Natural father Hypertension [facility] Natural mother Cancer [facility] Natural mother Hyperlipidemia [place] Natural mother Hypertension [place] [employer] Natural sister Heart disease [facility] Social History Social Habit Start Date Stop Date Quantity Comments Source Sex Assigned At Nina bailon Scientologist Alcohol intake 2017-12-13 00:00:00 2017-12-13 00:00:00 Current non-drinker of alcohol (finding) Kolton Barrientosist Social History 2017-02-03 04:09:40 2017-02-03 04:09:40 Oliver Figueroa Smoking Status Start Date Stop Date Source Never smoker [place] Far[place] t Medications Ordered Medication Name Filled Medication Name Start Date Stop Da te Current Medication? Ordering Clinician Indication Dosage Frequency Signature (SIG) Comments Components Source Medrol Dose Malik 2020-05-10 00:00:00 Yes Asif Pickett as directed [facility] Diphenhydramine Hcl (Benadryl) 25 Mg CAPSULE Diphenhyd ramine Hcl (Benadryl) 25 Mg CAPSULE 2020-05-05 05:14:00 Yes 50 E very 6 Hours as needed for Itching [facility] Famotidine (Pepcid) 20 Mg TABLET Famotidine (Pepcid) 20 Mg T ABLET 2020-05-05 05:14:00 Yes 20 Every 12 Hours [facility] Cyclobenzaprine Hcl (Flexeril) 5 Mg TABLET Cyclobenzap rine Hcl (Flexeril) 5 Mg TABLET 2020-05-04 04:23:00 Yes 10 Ever y 8 Hours as needed for Moderate Pain (4-6) [facility] Prednisone Prednisone 2020-05-04 04:23:00 Yes 60 Daily as needed for Moderate Pain (4-6) [facility] Klor-Con 2020-03-06 00:00:00 Yes Brad Garcia 1 p acket with food [facility] Pantoprazole Sodium 2020-02-27 02:46:25 Yes Brad Garcia [address] [facility] Levothyroxine Sodium 2020-02-27 02:46:25 Yes Brad Garcia [address] [facility] Alendronate Sodium 2020-02-27 02:46:25 Yes Brad Garcia [address] [facility] [place] Aspirin 2020-02-27 02:46:25 Yes Brad Garcia [address] [facility] Lisinopril-Hydrochlorothiazide 2020-02-27 02:46:25 Yes P edro Garcia [address] [facility] Otezla 2020-02-27 02:46:25 Yes Brad Garcia [address] [facility] Tylenol Arthritis Pain 2020-02-27 02:46:25 Yes Brad Amb marcial 1 tablet as needed [facility] Aspirin 81 2020-02-27 02:46:25 Yes Brad Garcia [address] [facility] Rosuvastatin Calcium 2020-02-27 02:46:25 Yes Brad Garcia [address] [facility] PredniSONE 2020-02-27 02:46:25 Yes Brad Leeriz TAKE 1 TABLET BY MOUTH EVERY DAY [facility] Vitamin D (Ergocalciferol) 2019-10-18 00:00:00 Yes Colten Bonilla [address] [facility] Vitamin D (Ergocalciferol) 2019-07-26 00:00:00 Yes Brad Garcia [address] [facility] Pravastatin Sodium 2019-03-29 02:50:45 Yes Wajeeha Juan [address] [facility] Alendronate Sodium 2018-07-14 00:00:00 Yes Wajeeha Yousa f TAKE 1 TABLET BY MOUTH ONCE A WEEK [facility] Methotrexate 2018-06-24 03:46:43 Yes Wajeeha Juan TAKE 5 TABLETS BY MOUTH ONCE EVERY WEEK [facility] Folic Acid 2018-06-24 03:46:43 Yes Wajeeha Juan [address] [facility] Otezla 2018-06-13 00:00:00 Yes Wajeeha Juan [address] [facility] Methotrexate 2018-06-09 00:00:00 Yes Wajeeha Juan TAKE 5 TABLETS BY MOUTH ONCE EVERY WEEK [facility] methotrexate 2.5 MG tablet 2017-12-14 19:16:30 Yes 2.5mg Q7D Take 2.5 mg by mouth once a week. Take 5 tabs/weekly Kolton Martino alendronate (FOSAMAX) 70 MG tablet 2017-12-14 19:16:30 Yes 70mg Q1W Take 70 mg by mouth every 7 days. Take in the morning with a full glass of water on an empty stomach, do NOT take anything else by mouth or lie down for the next 30 min. Kolton Martino pantoprazole (PROTONIX) 40 MG EC tablet 2017-12-14 19:16:30 Yes 40mg QD Take 40 mg by mouth daily. Kolton del valle levothyroxine (SYNTHROID, LEVOXYL) 75 mcg tablet 2017-12-14 19:16:30 Yes 75ug QD Take 75 mcg by mouth every morning. Kolton Martino ondansetron (ZOFRAN) 4 MG tablet 2017-12-14 19:16:30 Yes 4mg [id number] Take 4 mg by mouth 3 (three) times a day as needed for nausea or vomiting. [place] Scientologist dicyclomine (BENTYL) 20 mg tablet 2017-12-14 19:16:30 Yes 20mg Q.25D Take 20 mg by mouth 4 (four) times a day as needed. [place] [employer] folic acid (FOLVITE) 1 MG tablet 2017-12-14 19:16:30 Yes 1mg Q7D Take 1 mg by mouth once a week. [place] [facility] lisinopril (PRINIVIL,ZESTRIL) 20 mg tablet 2017-12-14 19:16:30 Yes 20mg QD Take 20 mg by mouth daily. Shahrzad on Scientologist hydroCHLOROthiazide (HYDRODIURIL) 12.5 MG tablet 2017-12-14 19:16:30 Yes 12.5mg QD Take 12.5 mg by mouth daily. [place] Scient[employer] pravastatin (PRAVACHOL) 40 MG tablet 2017-12-14 19:16:30 Ye s 80mg QD Take 80 mg by mouth daily. [place] [facility] PredniSONE 2017-11-08 00:00:00 Yes Dianaeha Juan [address] [facility] PredniSONE 2017-11-08 00:00:00 Yes Waalejandroeha Juan [address] [facility] Alendronate Sodium 2017-09-20 00:00:00 Yes Evelyn Morrell f take [address] [facility] Diclofenac Sodium 2017-06-10 00:00:00 Yes Wajeeha Juan 1 application to affected area [facility] Folic Acid 2017-04-20 00:00:00 Yes Dianaeha Juan [address] [facility] Methotrexate 2017-04-20 00:00:00 Yes Dianaeha Juan [address] [facility] Pravastatin Sodium 2017-04-15 02:46:24 Yes Dianaeha Juan [address] [facility] Levothyroxine Sodium 2017-04-15 02:46:24 Yes Dianaeha Juan [address] [facility] Lisinopril-Hydrochlorothiazide 2017-04-15 02:46:24 Yes Feranndo landa Juan [address] [facility] [place] Aspirin 2017-04-15 02:46:24 Yes Wajeeha Juan [address] [facility] Pantoprazole Sodium 2017-04-15 02:46:24 Yes Wajeeha Juan 1 tablet [facility] Alendronate Sodium 2017-04-15 02:46:24 Yes Wajeeha Juan 1 tablet [facility] Pravastatin 2017-02-04 02:00:00 No Notes: ( Same as: Pravachol) [facility] Pravastatin 2017-02-03 14:00:00 No 80 mg, Route: PO, Drug form: TAB, Daily, Dosing Weight 90.909, kg, Start date: 02/03/17 9:00:00 CDT, Duration: 30 day, Stop date: 03/04/17 9:00:00 CDT [facility]al [place] Hydrochlorothiazide 12.5 MG / Lisinopril 20 MG Oral Tablet 2017-02-03 14:00:00 No 1 tab, Rou te: PO, Drug Form: TAB, Dosing Weight 90.909, kg, Daily, Start date: 02/03/17 9:00:00 CDT, Duration: 30 day, Stop date: 03/04/17 9:00:00 CDT [facility] Folic Acid 2017-02-03 14:00:00 No Notes: (S roel as: Folvite) [facility] Aspirin 325 MG Oral Tablet 2017-02-03 14:00:00 No Notes: Take with food. [facility] Hydrochlorothiazide 25 mg 2017-02-03 14:00:00 No Hydrochlorothiazide 25 mg, 12.5 mg, 0.5 tab, Drug form: MISC, Route: PO, Daily, 02/03/17 9:00:00 CDT, Duration: 30 day, Stop date: 03/04/17 9:00:00 CDT [facility] lisinopril 2017-02-03 14:00:00 No Notes: (Same as: Samuel Magdalenostril) [facility] Streptococcus pneumoniae serotype 1 caps ular antigen diphtheria [id number] protein conjugate vaccine / Streptococcus pneumoniae serotype 14 capsular antigen diphtheria [id number] protein conjugate vaccine / Streptococcus pneumoniae serotype 18C capsular antigen d 2017-02-03 14:00:00 No Notes: Shake well prior to use (Same as: Prevnar 13) Silvino jayl [place] Docusate Sodium 50 MG / sennosides, FCI 8.6 MG Oral Tablet 2017-02-03 14:00:00 No Notes: (Same as Senokot-S) Equ iv. to Rosalba-Colace. [facility] heparin 2017-02-03 05:00:00 No Notes: porci ne heparin [facility] Versed 2017-02-03 04:57:00 No 1 mg, Route: IVP, PRN, Dosing Weight 90.909, kg, PRN Anxiety, Start date: 02/02/17 23:57:00 CDT, Duration: 30 day, Stop date: 03/04/17 23:56:00 CDT Mem[facility] joaquim Figueroa Ativan 2017-02-03 04:33:00 No 1 mg, Route: IV, ONCE, Dosing Weight 90.909, kg, PRN Agitation, Start date: 02/02/17 23:33:[address] [facility] methotrexate 10 mg oral tablet 2017-02-03 04:17:00 Yes 10 mg = 1 tab, PO, Q7D, 0 Refill(s) [facility] Aspirin 325 MG Oral Tablet 2017-02-03 04:17:00 Yes 325 mg = 1 tab, PO, Daily, 0 Refill(s) [facility] Alendronic acid 40 MG Oral Tablet 2017-02-03 04:17:00 Yes 40 mg = 1 tab, PO, Q7D, 0 Refill(s) [facility] Folic Acid 2017-02-03 04:17:00 Yes 1 mg, Keila ly, 0 Refill(s) [facility] pravastatin 80 mg oral tablet 2017-02-03 04:17:00 Yes 80 mg = 1 tab, PO, Daily, 0 Refill(s) [facility] Hydrochlorothiazide 12.5 MG / Lisinopril 20 MG Oral Tablet 2017-02-03 04:17:00 Yes 1 tab, PO, Daily, 0 Refill(s) [facility] ketOROLAC 15 mg/mL injectable solution 2017-02-02 23:18:00 No 15 mg, Route: IVP, Drug form: INJ, ONCE, Dosing Weight 72.727, kg, Priority: STAT, Start date: 02/02/17 18:18:00 CDT, Stop date: 02/02/17 18:18:[address] [facility] Compazine 2017-02-02 23:17:00 No 10 mg, Route: IV, ONCE, Dosing Weight 72.727, kg, Start date: 02/02/17 18:17:00 CDT, Stop date: 02/02/17 18:17:00 CDT [facility] Vital Signs Vital Name Observation Time Observation Value Comments Source Oxygen saturation by Pulse oximetry 2020-05-05 04:25:00 100 /min [facility] Weight 2020-05-05 04:25:00 190 [lb_av] [facility] BMI (Body Mass Index) 2020-05-05 04:25:00 34.8 kg/m2 [facility] Weight 2020-02-20 15:00:00 [facility] Height 2020-02-20 15:00:00 [facility] Temperature Oral (F) 2020-02-20 15:00:00 97.3 F [facility] Heart Rate 2020-02-20 15:00:00 [facility] Diastolic (mm Hg) 2020-02-20 15:00:00 [facility] [place] Systolic (mm Hg) 2020-02-20 15:00:00 Silvino rial [facility] Weight 2020-02-16 14:45:00 [facility] Height 2020-02-16 14:45:00 [facility] Temperature Oral (F) 2020-02-16 14:45:00 97.0 F [facility] Heart Rate 2020-02-16 14:45:00 [facility] Diastolic (mm Hg) 2020-02-16 14:45:00 [facility] Systolic (mm Hg) 2020-02-16 14:45:00 Silvino rial [place] Weight 2019-10-26 13:15:00 [facility] Height 2019-10-26 13:15:00 [facility] Temperature Oral (F) 2019-10-26 13:15:00 97.4 F [facility] Heart Rate 2019-10-26 13:15:00 [facility] Diastolic (mm Hg) 2019-10-26 13:15:00 [facility] Systolic (mm Hg) 2019-10-26 13:15:00 Silvino rial [place] Weight 2019-07-25 14:45:00 [facility] Height 2019-07-25 14:45:00 [facility] Temperature Oral (F) 2019-07-25 14:45:00 98.2 F [facility] Heart Rate 2019-07-25 14:45:00 [facility] Diastolic (mm Hg) 2019-07-25 14:45:00 [facility] Systolic (mm Hg) 2019-07-25 14:45:00 Silvino rial [facility] Weight 2019-02-01 16:45:00 [facility] Height 2019-02-01 16:45:00 [facility] Temperature Oral (F) 2019-02-01 16:45:00 97.8 F [facility] Heart Rate 2019-02-01 16:45:00 [facility] Diastolic (mm Hg) 2019-02-01 16:45:00 [facility] [place] Systolic (mm Hg) 2019-02-01 16:45:00 Silvino rial [facility] Weight 2019-01-24 16:45:00 [facility] Height 2019-01-24 16:45:00 [facility] Temperature Oral (F) 2019-01-24 16:45:00 97.9 F [facility] Heart Rate 2019-01-24 16:45:00 [facility] Diastolic (mm Hg) 2019-01-24 16:45:00 [facility] Systolic (mm Hg) 2019-01-24 16:45:00 Silvino rial [place] Weight 2018-09-20 15:30:00 [facility] Height 2018-09-20 15:30:00 [facility] Temperature Oral (F) 2018-09-20 15:30:00 98.0 F [facility] Heart Rate 2018-09-20 15:30:00 [facility] Diastolic (mm Hg) 2018-09-20 15:30:00 [facility] Systolic (mm Hg) 2018-09-20 15:30:00 Silvino [facility] [place] Weight 2018-09-14 15:45:00 [facility] Height 2018-09-14 15:45:00 [facility] Temperature Oral (F) 2018-09-14 15:45:00 98.1 F [facility] Heart Rate 2018-09-14 15:45:00 [facility] Diastolic (mm Hg) 2018-09-14 15:45:00 [facility] Systolic (mm Hg) 2018-09-14 15:45:00 Silvion rial [facility] Weight 2018-06-16 19:00:00 [facility] Height 2018-06-16 19:00:00 [facility] Temperature Oral (F) 2018-06-16 19:00:00 97.0 F [facility] Heart Rate 2018-06-16 19:00:00 [facility] Diastolic (mm Hg) 2018-06-16 19:00:00 [facility] Systolic (mm Hg) 2018-06-16 19:00:00 Silvino [facility] [place] Weight 2018-06-13 17:45:00 [facility] Height 2018-06-13 17:45:00 [facility] Temperature Oral (F) 2018-06-13 17:45:00 98.5 F [facility] Heart Rate 2018-06-13 17:45:00 [facility] Diastolic (mm Hg) 2018-06-13 17:45:00 [facility] [place] Systolic (mm Hg) 2018-06-13 17:45:00 Silvino [facility] [place] Weight 2018-03-14 18:00:00 [facility] Height 2018-03-14 18:00:00 [facility] Temperature Oral (F) 2018-03-14 18:00:00 98.5 F [facility] Heart Rate 2018-03-14 18:00:00 [facility] Diastolic (mm Hg) 2018-03-14 18:00:00 [facility] Systolic (mm Hg) 2018-03-14 18:00:00 Silvino rial [place] Weight 2018-02-22 16:30:00 [facility] Height 2018-02-22 16:30:00 [facility] Temperature Oral (F) 2018-02-22 16:30:00 97.4 F [facility] Heart Rate 2018-02-22 16:30:00 [facility] Diastolic (mm Hg) 2018-02-22 16:30:00 [facility] [place] Systolic (mm Hg) 2018-02-22 16:30:00 Silvino rial [facility] Weight 2017-11-18 20:30:00 [facility] Height 2017-11-18 20:30:00 [facility] Temperature Oral (F) 2017-11-18 20:30:00 97.9 F [facility] Heart Rate 2017-11-18 20:30:00 [facility] Diastolic (mm Hg) 2017-11-18 20:30:00 [facility] Systolic (mm Hg) 2017-11-18 20:30:00 Silvino rial [facility] Weight 2017-11-08 15:45:00 [facility] Height 2017-11-08 15:45:00 [facility] Temperature Oral (F) 2017-11-08 15:45:00 97.2 F [facility] Heart Rate 2017-11-08 15:45:00 [facility] Diastolic (mm Hg) 2017-11-08 15:45:00 [facility] [place] Systolic (mm Hg) 2017-11-08 15:45:00 Silvino rial [place] Weight 2017-08-11 20:45:00 [facility] Height 2017-08-11 20:45:00 [facility] Temperature Oral (F) 2017-08-11 20:45:00 97.8 F [facility] Heart Rate 2017-08-11 20:45:00 [facility] Diastolic (mm Hg) 2017-08-11 20:45:00 [facility] [place] Systolic (mm Hg) 2017-08-11 20:45:00 Silvino rial [facility] Weight 2017-08-10 15:15:00 [facility] Height 2017-08-10 15:15:00 [facility] Temperature Oral (F) 2017-08-10 15:15:00 97.2 F [facility] Heart Rate 2017-08-10 15:15:00 [facility] Diastolic (mm Hg) 2017-08-10 15:15:00 [facility] Systolic (mm Hg) 2017-08-10 15:15:00 Silvino rial [facility] Weight 2017-04-12 13:00:00 [facility] Height 2017-04-12 13:00:00 [facility] Temperature Oral (F) 2017-04-12 13:00:00 97.2 F [facility] Heart Rate 2017-04-12 13:00:00 [facility] Diastolic (mm Hg) 2017-04-12 13:00:00 [facility] [place] Systolic (mm Hg) 2017-04-12 13:00:00 Silvino rial [place] Temperature Oral (F) 2017-02-03 20:39:00 98.1 F [facility] Systolic (mm Hg) 2017-02-03 20:39:00 Silvino [facility] [place] Diastolic (mm Hg) 2017-02-03 20:39:00 [facility] Heart Rate 2017-02-03 20:39:00 [facility] Respitory Rate 2017-02-03 20:39:00 [facility] [place] Systolic (mm Hg) 2017-02-03 16:27:00 Silvino [facility] [place] Diastolic (mm Hg) 2017-02-03 16:27:00 [facility] Respitory Rate 2017-02-03 16:27:00 [facility] [place] Temperature Oral (F) 2017-02-03 16:27:00 96.8 F [facility] Heart Rate 2017-02-03 16:27:00 [facility] Heart Rate 2017-02-03 10:08:00 [facility] Temperature Oral (F) 2017-02-03 10:08:00 96.9 F [facility] Respitory Rate 2017-02-03 10:08:00 [facility] [place] Systolic (mm Hg) 2017-02-03 10:08:00 Silvino [facility] [place] Diastolic (mm Hg) 2017-02-03 10:08:00 [facility] Height 2017-02-03 03:57:00 157.48 cm [facility] Weight 2017-02-03 03:57:00 [facility] BMI Calculated 2017-02-03 03:57:00 [facility] [place] Weight 2017-02-02 21:18:00 [facility] BMI Calculated 2017-02-02 21:18:00 [facility] Height 2017-02-02 21:18:00 157.48 cm [facility] Procedures Procedure Date / Time Performed Performing Clinician Sourc e Hysterectomy<sup>1</sup> [facility] Plan of Care Planned Activity Planned Date Details Comments Source Instructions Allergic Reaction [facility] Encounters Start Date/Time End Date/Time Encounter Type Admission Type Attendi [facility] Care Department Encounter ID Source 2020-05-16 09:42:00 2020-05-16 09:42:00 Outpatient Asif SMITH [id number] Armen Pickett MD 2020-05-10 13:30:00 2020-05-10 13:30:00 Outpatient MD SARAH Saenz MD [place] [id number] Armen Pickett MD 2020-05-05 04:30:00 2020-05-05 05:36:[address] [facility] [id number] [facility] 2020-05-04 03:57:00 2020-05-04 04:39:[address] [facility] [id number] [facility] 2020-03-06 15:50:00 2020-03-06 15:50:00 Outpatient Asif Pickett MD PA [id number] Armen Pickett MD 2020-02-20 10:00:00 2020-02-20 10:00:00 Outpatient Asif Pickett MD PA [id number] Armen Pickett MD 2020-02-16 09:45:00 2020-02-16 09:45:00 Outpatient Asif Pickett MD PA [id number] Armen Pickett MD 2019-10-26 08:15:00 2019-10-26 08:15:00 Outpatient Asif Pickett MD PA [id number] Armen Pickett MD 2019-10-18 12:13:00 2019-10-18 12:13:00 Outpatient Asif Pickett MD PA [id number] Armen Pickett MD 2019-09-21 11:26:00 2019-09-21 11:26:00 Outpatient Asif Pickett MD PA [id number] Armen Pickett MD 2019-07-26 12:18:00 2019-07-26 12:18:00 Outpatient Asif Pickett MD PA [id number] Armen Pickett MD 2019-07-25 16:46:00 2019-07-25 16:46:00 Outpatient MD SARAH Saenz MD PA [id number] Armen Pickett MD 2019-07-25 09:45:00 2019-07-25 09:45:00 Outpatient Asif Pickett MD PA [id number] Armen Pickett MD 2019-07-17 14:14:00 2019-07-17 14:14:00 Outpatient Asif Pickett MD PA [id number] Armen Pickett MD 2019-03-31 11:19:00 2019-03-31 11:19:00 Outpatient MD SARAH Saenz MD PA [id number] Armen Pickett MD 2019-02-01 11:45:00 2019-02-01 11:45:00 Outpatient MD SARAH Zuniga MD [place] [id number] Armen Pickett MD 2019-01-24 12:38:00 2019-01-24 12:38:00 Outpatient Asif Pickett MD [place] [id number] Armen Pickett MD 2019-01-24 11:45:00 2019-01-24 11:45:00 Outpatient Asif Pickett MD PA [id number] Armen Pickett MD 2019-01-23 15:23:00 2019-01-23 15:23:00 Outpatient Asif Pickett MD PA [id number] Armen Pickett MD 2018-09-20 10:30:00 2018-09-20 10:30:00 Outpatient Asif Pickett MD PA [id number] Armen Pickett MD 2018-09-14 11:15:00 2018-09-14 11:15:00 Outpatient Asif Pickett MD PA [id number] Armen Pickett MD 2018-09-14 10:45:00 2018-09-14 10:45:00 Outpatient Asif Pickett MD PA [id number] Aremn Pickett MD 2018-07-14 15:32:00 2018-07-14 15:32:00 Outpatient Asif Pickett MD PA [id number] Armen Pickett MD 2018-06-16 13:00:00 2018-06-16 13:00:00 Outpatient Asif Pickett MD PA [id number] Armen Pickett MD 2018-06-13 12:53:00 2018-06-13 12:53:00 Outpatient Asif SMITH [id number] Armen Pickett MD 2018-06-13 11:45:00 2018-06-13 11:45:00 Outpatient Asif Pickett MD PA [id number] Armen Pickett MD 2018-06-09 09:07:00 2018-06-09 09:07:00 Outpatient Asif Pickett MD PA [id number] Armen Pickett MD 2018-03-14 13:00:00 2018-03-14 13:00:00 Outpatient Asif Pickett MD PA [id number] Armen Pickett MD 2018-02-22 12:13:00 2018-02-22 12:13:00 Outpatient Asif Pickett MD PA [id number] Armen Pickett MD 2018-02-22 11:30:00 2018-02-22 11:30:00 Outpatient Asif Pickett MD PA [id number] Armen Pickett MD 2017-11-18 15:30:00 2017-11-18 15:30:00 Outpatient Asif Pickett MD PA [id number] Armen Pickett MD 2017-11-14 17:08:00 2017-11-14 17:08:00 Outpatient Asif Pickett MD PA [id number] Armen Pickett MD 2017-11-12 10:46:00 2017-11-12 10:46:00 Outpatient Asif Pickett MD PA [id number] Armen Pickett MD 2017-11-08 10:45:00 2017-11-08 10:45:00 Outpatient Asif Pickett MD PA [id number] Armen Pickett MD 2017-09-20 15:28:00 2017-09-20 15:28:00 Outpatient Asif Pickett MD PA [id number] Armen Pickett MD 2017-09-06 10:06:00 2017-09-06 10:06:00 Outpatient Asif SMITH [id number] Armen Pickett MD 2017-08-11 14:45:00 2017-08-11 14:45:00 Outpatient Asif Pickett MD PA [id number] Armen Pickett MD 2017-08-11 12:37:00 2017-08-11 12:37:00 Outpatient Asif SMITH [id number] Armen Pickett MD 2017-08-10 09:52:00 2017-08-10 09:52:00 Outpatient Asif Pickett MD PA [id number] Armen Pickett MD 2017-08-10 09:15:00 2017-08-10 09:15:00 Outpatient Asif Pickett MD PA [id number] Armen Pickett MD 2017-06-10 11:23:00 2017-06-10 11:23:00 Outpatient Asif Pickett MD PA [id number] Armen Pickett MD 2017-04-20 08:57:00 2017-04-20 08:57:00 Outpatient Asif SMITH [id number] Armen Pickett MD 2017-04-16 12:57:00 2017-04-16 12:57:00 Outpatient Asif SMITH [id number] Armen Pickett MD 2017-04-12 08:00:00 2017-04-12 08:00:00 Outpatient Asif Pickett MD PA [id number] Armen Pickett MD 2017-02-24 09:34:00 2017-02-24 23:59:00 Out[place] Refugio Jaramillo [place] [facility] [place] [id number] 2017-02-02 16:18:00 2017-02-03 20:50:00 Outpatient Daniel Dunham [facility] [id number] Results Test Description Test Time Test Comments Results Result Comments Source ANEMIA STUDY 2017-02-03 20:45:00 78.7 [facility] ANEMIA STUDY 2017-02-03 20:45:00 326 [facility] CHEM PANEL 2017-02-03 20:38:00 [facility]6 [facility] CHEM PANEL 2017-02-03 08:39:00 3.3 [facility] CHEM PANEL 2017-02-03 08:39:00 72 [facility] CHEM PANEL 2017-02-03 08:39:00 8.6 [facility] CHEM PANEL 2017-02-03 08:39:00 26 [facility] CHEM PANEL 2017-02-03 08:39:00 0.84 [facility] CHEM PANEL 2017-02-03 08:39:00 141 [facility] CHEM PANEL 2017-02-03 08:39:00 106 [facility] CHEM PANEL 2017-02-03 08:39:00 3.9 [facility] CHEM PANEL 2017-02-03 08:39:00 104 [facility] CHEM PANEL 2017-02-03 08:39:00 19 [facility] CHEM PANEL 2017-02-03 08:39:00 12.9 [facility] CHEM PANEL 2017-02-03 08:39:00 2.2 [facility] HEMATOLOGY 2017-02-03 08:39:00 5.6 [facility] HEMATOLOGY 2017-02-03 08:39:00 89.6 [facility] HEMATOLOGY 2017-02-03 08:39:00 3.85 [facility] HEMATOLOGY 2017-02-03 08:39:00 14.8 [facility] HEMATOLOGY 2017-02-03 08:39:00 243 [facility] HEMATOLOGY 2017-02-03 08:39:00 Test Item MCH (test code = MCH) 30.6 pg 27.0-31.0 [facility] PnrtwmeZRNNSKBCIC9638-57-45 08:39:0034.1[facility] 2017-02-03 08:39:008.3[facility] UhhnltuZKINSQHTFC1863-44-21 08:39:0011.8[facility] LtgiqzbCHIWRRPSOR0942-73-32 08:39:0034.5[facility] IkbuwhnUKIDEJCTNY9337-43-49 08:39:003.8[facility] WzefqpmQEGOVJKYAM3169-97-16 08:39:001.2[facility] ZIDSDCJYJH8605-84-50 08:39:000.5[facility] HrantymRANXTKBTPF1674-78-54 08:39:000.2 [facility] GfnyvenFUCUMZQCFO1291-02-47 08:39:000.6[facility]annHEMATOLOGY 2017-02-03 08:39:009.3[facility] ZuijdlxMOQAAJODUK5836-56-47 08:39:0068.1[facility] YsgjmaoAMSMHIGTNK7417-55-74 08:39:0021.8[facility] SxssbvqEYYBJY8949-12-90 08:39:002.26[facility] EbmzvqeDLSXGQ5439-33-82 08:39:0060[facility]annLIPIDS 2017-02-03 08:39:0058[facility] YydyytwVGKZXY6870-93-22 08:39:0013[facility] BFXVTI8831-92-30 08:39:16180Wzddfucy WtasndxLZRNOB2647-10-05 08:39:0063[facility] HermannPARATHYROID QDFWVBS0208-40-29 08:39:001.07[facility] HermannPARATHYROID FJNYEJZ5142-24-99 08:39:001.06[facility]annSPECIAL PVRAZJTBE7089-00-98 08:39:005.2[facility]annDRUG ECCNUU5712-91-16 23:02:16Negative *NA*(02/02/17 6:02 PM)[facility] KHUNGY5931-97-62 23:02:16Negative *NA*(02/02/17 6:02 PM)[facility] HMERIM8266-25-39 23:02:16Negative *NA*(02/02/17 6:02 PM) [facility] HTUIID1893-71-34 23:02:16Negative *NA*(02/02/17 6:02 PM) [facility] HYZUWP8804-92-08 23:02:16Negative *NA*(02/02/17 6:02 PM) [facility] ETNYWK5849-24-54 23:02:16See Note *NA*(02/02/17 6:02 PM) [facility] XEGHXT4816-82-97 23:02:16Negative *NA*(02/02/17 6:02 PM) [facility] BBZGUM4885-71-70 23:02:16Negative *NA*(02/02/17 6:02 PM) [facility] CALDA0005-70-38 23:02:16None Seen (02/02/17 6:02 PM) [facility] GXBMO2395-51-87 23:02:16Negative *NA*(02/02/17 6:02 PM) [facility] AYRFY5568-46-47 23:02:16Negative *NA*(02/02/17 6:02 PM) [facility] WWJYM0572-29-70 23:02:16Trace *ABN*(02/02/17 6:02 PM) [facility] DBIDT7460-85-62 23:02:16Negative (02/02/17 6:02 PM) [facility] ROZYF7797-56-18 23:02:16Negative (02/02/17 6:02 PM) [facility] XJELD0489-74-67 23:02:160.2[facility] XROVH2888-30-56 23:02:16Negative (02/02/17 6:02 PM)[facility] STOOL 2017-02-02 23:02:16* Test Item Value Reference Range Interpretation Comments UA pH (test code = UA pH) 7.0 1 5.0-8.0 [facility] ZWFEB7277-41-93 23:02:16Negative (02/02/17 6:02 PM) [facility] WDCVK3530-48-75 23:02:16* Test Item Value Reference Range Interpretation Comments UA Spec Grav (test code = UA Spec Grav) 1.010 1 [facility] ZCCSY7869-83-04 23:02:16Yellow *NA*(02/02/17 6:02 PM) [facility] SHSIM6522-89-06 23:02:16Slight Cloudy (02/02/17 6:02 PM) [facility]annCHEM CVMAN6484-19-79 21:46:361.4[facility] HermannCARDIAC ENZYMES 2017-02-02 21:41:00<0.02[facility] HermannCHEM JJAWZ9466-42-14 21:41:0054[facility]annCHEM RNMYV8224-48-41 21:41:85803Rmoreydv HermannCHEM DNEVE4358-76-62 21:41:009.1[facility]annCHEM BXLOP1925-66-62 21:41:0025[facility]annCHEM TYDKC9806-67-18 21:41:003.7[facility]annCHEM RYBTQ1331-21-33 21:41:35886 [facility]annCHEM CBAAM8135-85-41 21:41:001.07[facility]annCHEM PANEL 2017-02-02 21:41:0018[facility] HermannCHEM LHYTQ6087-35-41 21:41:69146Xanuhqgu HermannCHEM JILMA9994-90-83 21:41:0075[facility]annCHEM IDMDX6910-63-75 21:41:000.8[facility]annCHEM PRKLL9207-80-06 21:41:004.3[facility]annCHEM IMPGS7315-20-54 21:41:0024[facility] HermannCHEM MCQNP4370-09-14 21:41:0025 [facility]annCHEM YJIBX5008-30-34 21:41:007.5[facility] HermannCHEM PANEL 2017-02-02 21:41:0017[facility] HermannCHEM GXJNW0778-22-98 21:41:0012.7[facility] HermannCHEM EWPOC8315-04-90 21:41:003.2[facility]annCHEM SYVUU3499-47-10 21:41:001.3[facility] YsjndugUCNGSLLKIS4934-91-14 21:41:00* Test Item Value Reference Range Interpretation Comments PTT (test code = PTT) 26.1 s 22.9-35.8 [facility] ShvinmqZJIZAUNOJN8274-68-41 21:41:00* Test Item Value Reference Range Interpretation Comments PT (test code = PT) 13.0 s 12.0-14.7 [facility] PalhuhdDLRUVUIUVD0888-39-34 21:41:000.96[facility]annHEMATOLOGY 2017-02-02 21:41:008.2[facility] VicktllTTPRDBDUXT6117-27-20 21:41:51674Pptdrrrp TuzfhmlNQGHIYWFMU7138-37-48 21:41:0014.8[facility] QdwhupoSNLMZAUCHR7057-54-82 21:41:0033.9[facility] NjirmocFMCDSQUPLY0941-03-33 21:41:00* Test Item Value Reference Range Interpretation Comments MCH (test code = MCH) 30.1 pg 27.0-31.0 [facility] ZzvkypkOJFICDLQEG3710-14-09 21:41:0012.5[facility]annHEMATOLOGY 2017-02-02 21:41:0037.0[facility] JcbteygSVCNVTYPFJ5458-18-19 21:41:0088.8[facility] VyfwsbyBMFWOGDMVV8663-24-00 21:41:005.6[facility] WszmzanIMTDWVFMYP9117-35-04 21:41:004.16[facility] PxtkyhcDGPNDBKCKF7528-65-90 21:41:000.4[facility] BQJEBZXAPZ6477-04-72 21:41:004.0[facility] WxppkqsTQLPDZXJYI4936-92-48 21:41:001.1 [facility] NfajnljFEYOUTDAFI3024-01-15 21:41:007.8[facility] HermannHEMATOLOGY 2017-02-02 21:41:002.1[facility] BatbbtaCOPBTZSEVL0271-65-35 21:41:000.2[facility] MhwxmtpWRWCRQWPMT7245-24-42 21:41:0070.5[facility] WhlgzpcYPDMZIQVYL7806-49-44 21:41:0019.4[facility] DxgjuyhIHJTFEKVUE3445-05-76 21:41:000.1[facility]
[2020-05-26] MEDS ORDERED: PREDNISONE5 MG PO (03:01)
[2020-05-26] MEDS ORDERED: PANTOPRAZOLE SO40 MG PO (03:01)
[2020-05-26] MEDS ORDERED: ASPIRIN325 MG PO (03:01)
[2020-05-26] MEDS ORDERED: TIZANIDINE HCL4 MG PO (03:01)
[2020-05-26] MEDS ORDERED: LISINOPRIL20 MG PO (03:01)
[2020-05-26] MEDS ORDERED: VITAMIN D250 MC1 PO (03:01)
[2020-05-26] MEDS ORDERED: HYDROCHLOROTHIA25 MG PO (03:01)
[2020-05-26] MEDS ORDERED: CRESTOR20 MG PO (03:01)
[2020-05-26] MEDS ORDERED: LEVOTHYROXINE75 MCG PO (03:02)
[2020-05-26] MEDS ORDERED: POTASSIUM CHLO10 ME1 PO (03:02)
[2020-05-26] MEDS ORDERED: ZETIA10 MG PO (03:02)
[2020-05-26] MEDS ORDERED: ALENDRONATE SOD70 MG PO (03:02)
== END 2020-05-25 08:35 | disposition home or self-care (01) ==
LOC: FSED 05:53
DX: M25.512 Pain in left shoulder (principal); M25.511 Pain in right shoulder; M54.42 Lumbago with sciatica, left side; M54.41 Lumbago with sciatica, right side; I10 Essential (primary) hypertension; G89.29 Other chronic pain; Z85.89 Personal history of malignant neoplasm of other organs and systems
CPT/HCPCS: 99283; J1885

== ENCOUNTER 2020-05-25 18:51 | Observation (INO) | payer MEDICARE ==
[~2020-05-25] VITALS: Ht 157.5 cm; Wt 88.0 kg
[~2020-05-25 18:51] MED LIST changes: +PREDNISONE10 MG PO
--- NOTE | 2020-05-25 18:59 | Emergency Department Note ---
History of Present Illnes History of Present Illness History of Present Illness This is a 70 year old female presents to the ED for overall body aches. States that on 05/04/2020 patient had b/l Leg pain which hindered her ability to ambulate. Episode was transien and self resolved . Reports overall back ache this AM and was seen at [facility] site today. . Historian: Patient Arrival Mode: Car Onset (how long ago): week(s) Radiation: Reports extremity Severity: moderate Onset quality: gradual Duration (how long): week(s) Timing of current episode: intermittent Progression: waxing and waning Treatments prior to arrival: none Past Medical/Family History Physician Review I have reviewed the patient's past medical and family history. Any updates have been documented here. Past Medical History Recent Fever: No Clinical Suspicion of Infectio: No New/Unexplained Change in Ment: No Past Medical History: Hypertension, Cancer, Chronic Back Pain, Osteoarthritis Past Surgical History: None Other Surgery: thyroid,hyst,appendix Social History Smoking Cessation: Never Smoker Alcohol Use: None Any Illegal Drug Use: No Review of Systems Review of Systems Constitutional: Reports no symptoms EENTM: Reports no symptoms Cardiovascular: Reports no symptoms Respiratory: Reports no symptoms Gastrointestinal: Reports no symptoms Genitourinary: Reports no symptoms Musculoskeletal: Reports muscle pain Integumentary: Reports no symptoms Neurological: Reports no symptoms Psychological: Reports no symptoms Endocrine: Reports no symptoms Hematological/Lymphatic: Reports no symptoms Physical Exam Related Data Allergies: Coded Allergies: No Known Allergies (Unverified , 05/04/20) Triage Vital Signs Vital Signs Date Time Temp Pulse Resp B/P (MAP) Pulse Ox O2 Delivery O2 Flow Rate FiO2 05/25/20 19:08 98.2 70 20 106/50 100 Room Air Vital signs reviewed: Yes Physical Exam CONSTITUTIONAL Constitutional: Present obese HENT HENT: Present normocephalic, Present atraumatic, Present oropharynx clear/moist, Present nose normal HENT L/R: Present left ext ear normal, Present right ext ear normal EYES Eyes: Reports PERRL, Reports conjunctivae normal NECK Neck: Present ROM normal PULMONARY Pulmonary: Present effort normal, Present breath sounds normal CARDIOVASCULAR Cardiovascular: Present regular rhythm, Present heart sounds normal, Present capillary refill normal, Present normal rate GASTROINTESTINAL Abdominal: Present soft, Present nontender, Present bowel sounds normal GENITOURINARY Genitourinary: Present exam deferred SKIN Skin: Present warm, Present dry MUSCULOSKELETAL Musculoskeletal: Present ROM normal NEUROLOGICAL Neurological: Present alert, Present oriented x 3, Present no gross motor or sensory deficits PSYCHOLOGICAL Psychological: Present mood/affect normal, Present judgement normal Results Laboratory Lab results reviewed: Yes Laboratory comments Laboratory Tests Test 05/25/20 19:31 White Blood Count 9.26 x10e3/uL (4.8-10.8) Red Blood Count 3.95 x10e6/uL (3.6-5.1) Hemoglobin 11.8 g/dL (12.0-16.0) Hematocrit 35.9 % (34.2-44.1) Mean Corpuscular Volume 90.9 fL (81-99) Mean Corpuscular Hemoglobin 29.9 pg (28-32) Mean Corpuscular Hemoglobin Concent 32.9 g/dL (31-35) Red Cell Distribution Width 13.4 % (11.7-14.4) Platelet Count 239 x10e3/uL (140-360) Neutrophils (%) (Auto) 93.0 % (38.7-80.0) Lymphocytes (%) (Auto) 2.1 % (18.0-39.1) Monocytes (%) (Auto) 4.1 % (4.4-11.3) Eosinophils (%) (Auto) 0.2 % (0.0-6.0) Basophils (%) (Auto) 0.1 % (0.0-1.0) Neutrophils # (Auto) 8.6 (2.1-6.9) Lymphocytes # (Auto) 0.2 (1.0-3.2) Monocytes # (Auto) 0.4 (0.2-0.8) Eosinophils # (Auto) 0.0 (0.0-0.4) Basophils # (Auto) 0.0 (0.0-0.1) Absolute Immature Granulocyte (auto 0.05 x10e3/uL (0-0.1) Differential Total Cells Counted 100 Neutrophils % (Manual) 90 % (40-74) Band Neutrophils % 1 % Lymphocytes % (Manual) 5 % (19-48) Monocytes % (Manual) 4 % (3.4-9.0) Platelet Estimate Adequate Platelet Morphology Comment Normal Red Cell Morphology Comment Normal Urine Color Yellow (YELLOW) Urine Clarity Hazy (CLEAR) Urine pH 5 (5 - 7) Urine Specific [place] 1.015 (1.010-1.025) Urine Protein Negative (NEGATIVE) Urine Glucose (UA) Negative (NEGATIVE) Urine Ketones Negative (NEGATIVE) Urine Blood Negative (NEGATIVE) Urine Nitrite Negative (NEGATIVE) Urine Bilirubin Negative (NEGATIVE) Urine Urobilinogen 0.2 mg/dL (0.2 - 1) Urine Leukocyte Esterase Trace (NEGATIVE) Urine RBC 0-5 /HPF (0-5) Urine WBC 0-5 /HPF (0-5) Urine Epithelial Cells Few /LPF (NONE) Urine Amorphous Sediment Few (FEW) Urine Bacteria Few /HPF (NONE) Sodium Level 137 mmol/L (136-145) Potassium Level 4.0 mmol/L (3.5-5.1) Chloride Level 102 mmol/L (98-107) Carbon Dioxide Level 25 mmol/L (22-29) Anion Gap 14.0 mmol/L (8-16) Blood Urea Nitrogen 33 mg/dL (7-26) Creatinine 1.37 mg/dL (0.57-1.11) Estimat Glomerular Filtration Rate 38 ML/MIN (60-) BUN/Creatinine Ratio 24 (6-25) Glucose Level 165 mg/dL (74-118) Calcium Level 8.9 mg/dL (8.4-10.2) Total Bilirubin 0.7 mg/dL (0.2-1.2) Aspartate Amino Transf (AST/SGOT) 29 IU/L (5-34) Alanine Aminotransferase (ALT/SGPT) 31 IU/L (0-55) Alkaline Phosphatase 64 IU/L (40-150) Creatine Kinase 37 IU/L (29-168) Creatine Kinase MB 2.20 ng/mL (0-5.0) Troponin I < 0.001 ng/mL (0-0.300) B-Type Natriuretic Peptide 163.9 pg/mL (0-100) Total Protein 6.4 g/dL (6.5-8.1) Albumin 3.7 g/dL (3.5-5.0) Globulin 2.7 g/dL (2.3-3.5) Albumin/Globulin Ratio 1.4 (0.8-2.0) Imaging Imaging results reviewed: Yes Impressions [facility] [address] [place], [place] [id number] Patient Name: ASHWIN MIN MR #: [id number] : 1950 Age/Sex: 70/F Req #: [id number] Adm Physician: Ordered by: DAVID SHANNON DO Report #: [id number] Location: ER Room/Bed: Procedure: [id number] DX/CHEST 2 VIEWS Exam Date: 05/25/20 Exam Time: 2006 REPORT STATUS: Signed EXAMINATION: CHEST 2 VIEWS INDICATION: Pain ^ORDER PLACED BY MD ^[id number] ^2006 ^Y COMPARISON: None FINDINGS: TUBES and LINES: None. LUNGS: Normal lung volumes. Lungs are clear. No consolidations. PLEURA: No pleural effusion or pneumothorax. HEART AND MEDIASTINUM: Heart is nonenlarged. Somewhat hyperdense right hilar prominence may relate to calcified right hilar lymph nodes or vessels on end. IMPRESSION: 1. No pneumonia or edema. 2. Indeterminate right hilar prominence which is somewhat hyperdense, may relate to lymph nodes or vessels on end. No comparisons available to determine stability. Consider comparison with outside imaging to determine stability versus nonemergent outpatient CT chest with contrast. Signed by: Justino Hill MD on 05/25/2020 8:48 PM Dictated By: JUSTINO HILL MD 47 Transcribed By: NORA on 05/25/202047 COPY TO: DAVID SHANNON DO~ [place] [address] Patient Name: ASHWIN MIN MR #: [id number] : 1950 Age/Sex: 70/F Req #: [id number] Adm Physician: Ordered by: DAVID SHANNON DO Report #: [id number] Location: ER Room/Bed: Procedure: [id number] CT/CT BRAIN WO Exam Date: 05/25/20 Exam Time: 1953 REPORT STATUS: Signed Exam: Head CT without contrast History: Neck and back pain Comparison studies: Prior brain MRI 08/28/2015 is unavailable on the PACS at the time of dictation. Technique: Axial images were obtained from the skull base to the vertex. Coronal and sagittal images reconstructed from the axial data. Dose modulation, iterative reconstruction, and/or weight based adjustment of the mA/kV was utilized to reduce the radiation dose to as low as reasonably achievable. Radiation dose: Total DLP: 921.4 mGy*cm. Estimated effective dose: DLP x 0.015 Intravenous contrast: None Findings: Scalp: Incidental small nodule in the left posterior frontal scalp, possibly small epidermoid inclusion cyst. No other abnormalities. Bones: No fractures, blastic or lytic lesions. Brain sulci: Appropriate for age. Ventricles: Normal in size and configuration. No hydrocephalus. Extra-axial spaces: No masses, no fluid collection. Parenchyma: No mass, acute hemorrhage or acute cortical vascular insults. A few scattered hypodensities in the supratentorial white matter are nonspecific but most compatible with chronic small vessel ischemic changes. Sellar/suprasellar region: No abnormalities. Craniocervical junction: Patent foramen magnum. No Chiari one malformation. Incidental findings: Atherosclerotic calcifications in the carotid siphons. IMPRESSION: 1. No acute intracranial abnormalities. 2. Mild chronic microvascular ischemic changes. Signed by: Dr. Navid Kinney M.D. 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 physician Date: May 25, 2020 Time: 19:33 Prior ECG tracings: reviewed Rhythm: sinus rhythm Rate: normal BPM: 70 QRS axis: normal ST segment flattening: V4, V5, V6 T wave inversion: V1, V2, V3 Clinical Impression: non-specific ECG Assessment & Plan Medical Decision Making MDM Diff Dx : myalgias, Viral syndrome, Cristina barre, Multiple sclerosis, CVA, ACS Assessment & Plan Final Impression: (1) Renal insufficiency (2) Angina at rest (3) Myalgia Depart Disposition: ADMITTED Home Meds Reported Medications Alendronate Sodium (ALENDRONATE SODIUM) 70 Mg Tablet, 70 MG PO WEEKLY 05/26/20 Ezetimibe (ZETIA) 10 Mg Tablet, 10 MG PO DAILY, #30 TAB 05/26/20 Levothyroxine Sodium (LEVOTHYROXINE SODIUM) 75 Mcg Tablet, 75 MCG PO DAILY, #30 TAB 05/26/20 Potassium Chloride (POTASSIUM CHLORIDE) 10 Meq Tab.er.prt, 10 MEQ PO DAILY, TAB 05/26/20 Ergocalciferol (Vitamin D2) (Vitamin D2) 50 Mcg Tablet, 1.25 MG PO WEEKLY 05/26/20 Pantoprazole Sodium* (PROTONIX) 40 Mg Tablet.dr, 40 MG PO DAILY, TAB 05/26/20 Rosuvastatin Calcium (CRESTOR) 20 Mg Tablet, 20 MG PO DAILY 05/26/20 Aspirin (ASPIRIN) 325 Mg Tablet, 325 MG PO DAILY, #30 TAB 05/26/20 Hydrochlorothiazide (HYDROCHLOROTHIAZIDE) 25 Mg Tablet, 12.5 MG PO DAILY, #30 TAB 05/26/20 Lisinopril (PRINAVIL / ZESTRIL) 20 Mg Tablet, 20 MG PO DAILY, #30 TAB 05/26/20 Prednisone (PREDNISONE) 5 Mg Tablet, 5 MG PO DAILY, #30 TAB 05/26/20 Tizanidine Hcl (TIZANIDINE HCL) 4 Mg Tablet, 4 MG PO HS PRN for MUSCLE SPASMS, TAB 05/26/20 Discontinued Scripts Prednisone (PREDNISONE) 10 Mg Tab, 3 TAB PO DAILY, #20 TAB Prov:FAWAD LEO MD 05/25/20 Famotidine (PEPCID) 20 Mg Tablet, 20 MG PO Q12HR, #20 TAB Prov:JOVANNI LOGAN 05/05/20 Diphenhydramine Hcl (BENADRYL) 25 Mg Capsule, 50 MG PO Q6H PRN for ITCHING, #40 Prov:JOVANNI LOGNA 05/05/20 Cyclobenzaprine Hcl (FLEXERIL) 5 Mg Tablet, 10 MG PO Q8H PRN for MODERATE PAIN (4-6), #30 TAB TAKE AFTER PREDNISONE TO CONTROL PAIN IF NEED BE Prov:JOVANNI LOGAN 05/04/20 Prednisone (PREDNISONE) 20 Mg Tab, 60 MG PO DAILY PRN for MODERATE PAIN (4-6), #18 TAB take all 3 20 mg pills at once Prov:JOVANNI LOGAN 05/04/20 DAVID SHANNON DO May 25, 2020 18:59
[2020-05-25] MEDS ORDERED: SODIUM CHLORIDE 0.9% 1000ML 1,000 ML IV STA ×2 (19:14→23:03)
[2020-05-25 19:45] LABS: BASOPHILS % 0.1 % (0.0-1.0); EOSINOPHILS % 0.2 % (0.0-6.0); HEMATOCRIT 35.9 % (34.2-44.1); HEMOGLOBIN 11.8 g/dL (12.0-16.0); LYMPHOCYTES # (AUTO) 0.2 (1.0-3.2); LYMPHOCYTES % 2.1 % (18.0-39.1); MEAN CORPUSCULAR HEMOGLOBIN 29.9 pg (28-32); MEAN CORPUSCULAR HGB CONC 32.9 g/dL (31-35); MEAN CORPUSCULAR VOLUME 90.9 fL (81-99); MONOCYTES # (AUTO) 0.4 (0.2-0.8); MONOCYTES % 4.1 % (4.4-11.3); NEUTROPHILS # (AUTO) 8.6 (2.1-6.9); PLATELET COUNT 239 x10e3/uL (140-360); RED BLOOD COUNT 3.95 x10e6/uL (3.6-5.1); RED CELL DISTRIBUTION WIDTH 13.4 % (11.7-14.4)
[2020-05-25 19:50] LABS: BILIRUBIN,URINE NEGATIVE (NEGATIVE); CLARITY,URINE HAZY (CLEAR); COLOR,URINE YELLOW (YELLOW); KETONES,URINE NEGATIVE (NEGATIVE); LEUKOCYTE ESTERASE ,URINE TRACE (NEGATIVE); NITRITE,URINE NEGATIVE (NEGATIVE); PROTEIN,URINE DIPSTICK NEGATIVE (NEGATIVE); URINE UROBILINOGEN 0.2 mg/dL (0.2 - 1)
[2020-05-25 19:57] LABS: AMORPHOUS SEDIMENT,URINE FEW (FEW); BACTERIA,URINE FEW /HPF; EPITHELIAL CELLS,URINE FEW /LPF; RBC,URINE 0-5 /HPF (0-5); WBC,URINE (MAN) 0-5 /HPF (0-5)
[2020-05-25 20:02] LABS: ALANINE AMINOTRANSFERASE 31 IU/L (0-55); ALBUMIN 3.7 g/dL (3.5-5.0); ALBUMIN/GLOBULIN RATIO 1.4 (0.8-2.0); ALKALINE PHOSPHATASE 64 IU/L (40-150); BLOOD UREA NITROGEN 33 mg/dL (7-26); BUN/CREATININE RATIO 24 (6-25); CALCIUM 8.9 mg/dL (8.4-10.2); CARBON DIOXIDE 25 mmol/L (22-29); CHLORIDE 102 mmol/L (98-107); CREATINE KINASE 37 IU/L (29-168); CREATININE, SERUM 1.37 mg/dL (0.57-1.11); EST GLOMERULAR FILTRATION RATE 38 ML/MIN (60-); GLUCOSE 165 mg/dL (74-118); SODIUM 137 mmol/L (136-145)
[2020-05-25 20:33] LABS: BAND NEUTROPHILS % (MANUAL) 1 %; LYMPHOCYTES % (MANUAL) 5 % (19-48); MONOCYTES % (MANUAL) 4 % (3.4-9.0); NEUTROPHILS % (MANUAL) 90 % (40-74); PLATELET ESTIMATE ADEQUATE; PLATELET MORPHOLOGY COMMENT NORMAL; RBC MORPHOLOGY COMMENT NORMAL
--- NOTE | 2020-05-25 20:49 | Diagnostic Imaging Report ---
Exam: Head CT without contrast History: Neck and back pain Comparison studies: Prior brain MRI 08/28/2015 is unavailable on the PACS at the time of dictation. Technique: Axial images were obtained from the skull base to the vertex. Coronal and sagittal images reconstructed from the axial data. Dose modulation, iterative reconstruction, and/or weight based adjustment of the mA/kV was utilized to reduce the radiation dose to as low as reasonably achievable. Radiation dose: Total DLP: 921.4 mGy*cm. Estimated effective dose: DLP x 0.015 Intravenous contrast: None Findings: Scalp: Incidental small nodule in the left posterior frontal scalp, possibly small epidermoid inclusion cyst. No other abnormalities. Bones: No fractures, blastic or lytic lesions. Brain sulci: Appropriate for age. Ventricles: Normal in size and configuration. No hydrocephalus. Extra-axial spaces: No masses, no fluid collection. Parenchyma: No mass, acute hemorrhage or acute cortical vascular insults. A few scattered hypodensities in the supratentorial white matter are nonspecific but most compatible with chronic small vessel ischemic changes. Sellar/suprasellar region: No abnormalities. Craniocervical junction: Patent foramen magnum. No Chiari one malformation. Incidental findings: Atherosclerotic calcifications in the carotid siphons. IMPRESSION: 1. No acute intracranial abnormalities. 2. Mild chronic microvascular ischemic changes. Signed by: Dr. Deni Kinney M.D. on 05/25/2020 8:45 PM
--- NOTE | 2020-05-25 20:51 | Diagnostic Imaging Report ---
EXAMINATION: CHEST 2 VIEWS INDICATION: Pain ^ORDER PLACED BY ^[id number] ^2006 ^Y COMPARISON: None FINDINGS: TUBES and LINES: None. LUNGS: Normal lung volumes. Lungs are clear. No consolidations. PLEURA: No pleural effusion or pneumothorax. HEART AND MEDIASTINUM: Heart is nonenlarged. Somewhat hyperdense right hilar prominence may relate to calcified right hilar lymph nodes or vessels on end. IMPRESSION: 1. No pneumonia or edema. 2. Indeterminate right hilar prominence which is somewhat hyperdense, may relate to lymph nodes or vessels on end. No comparisons available to determine stability. Consider comparison with outside imaging to determine stability versus nonemergent outpatient CT chest with contrast. Signed by: Royer Man MD on 05/25/2020 8:48 PM
--- OUTSIDE RECORDS SUMMARY | 2020-05-25 21:42 | XMS REPORT | Continuity of Care Document ---
Author Author [employer], ASHWIN BENEDICT [facility] [employer] 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 Active 02/19/2017 [facility] AMS Active 0 02/02/2017 [facility] AMNESIA, GLOBAL TRANSIENT Acti ve 02/02/2017 [facility] Gastroesophageal reflux disease (disorder) Resolved Problem 02/27/2017 [facility] Hyperlipidemia (disorder) Reso lved Problem [facility] Hypertensive disorder, systemic arterial (disorder) Resolved Problem 02/27/2017 [facility] Hyperthyroidism (disorder) Res olved Problem [facility] Arthritis (disorder) Resolved Problem 02/27/2017 left hip and spine [facility] Localized osteoarthritis of knees, bilateral Active Problem [...] 11/02/2019 Armen Pickett Back pain Active Problem 05/17/2020 Armen Pickett Osteopenia of multiple sites A ctive Problem Armen Pickett Vitamin D deficiency Active Problem 05/17/2020 Armen Pickett Low vitamin D level Active Problem 05/17/2020 Armen Reinaer Shoulder pain, right Active Diagnosis 02/27/2020 Armen Pickett TRANSIENT GLOBAL AMNESIA Active [facility] 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 [facility] Medications Medication Details Route Status Patient Instructions Ordering Provider Order Date Source Medrol Dose Malik as directed Orally Active 4mg Orally once a day Conrad 05/10/2020 Armen Pickett Klor-Con 1 packet with food Orally Active 20 MEQ Orally Once a day Garcia 03/06/2020 Armen Pickett Vitamin D (Ergocalciferol) 1 c apsule Orally Active 1.25 MG (18024 UT) Orally once a week Manning 10/18/2019 Armen Pickett Vitamin D (Ergocalciferol) 1 c apsule Orally Active 1.25 MG (72305 UT) Orally once a week [facility] 07/26/2019 Armen Pickett Alendronate Sodium [...] Notes: (Same as: Yuliya west) Inactive 02/04/2017 [facility] Pravastatin 80 mg, Route: PO, Drug form: TAB, Daily, Dosing Weight 90.909, kg, Start date: 02/03/17 9:00:00 CDT, Duration: 30 day, Stop date: 03/04/17 9:00:00 CDT No Longer Active 02/03/2017 [facility] nter Hydrochlorothiazide 12.5 MG / Lisinopril 20 MG Oral Tablet 1 tab, Route: PO, Drug Form: TAB, Dosing Weight 90.909, kg, Daily, Start date: 02/03/17 9:00:00 CDT, Duration: 30 day, Stop date: 03/04/17 9:00:00 CDT Inactive 02/03/2017 [facility] Folic Acid Notes: (Same as: Fo lvite) Inactive 02/03/2017 [facility] Aspirin 325 MG Oral Tablet Not es: Take with food. Inactive 02/03/2017 [facility] Hydrochlorothiazide 25 mg Hydr ochlorothiazide 25 mg, 12.5 mg, 0.5 tab, Drug form: MISC, Route: PO, Daily, 02/03/17 9:00:00 CDT, Duration: 30 day, Stop date: 03/04/17 9:00:00 CDT Inactive 02/03/2017 [facility] nter lisinopril Notes: (Same as: Pr inivil, Zestril) Inactive 02/03/2017 [facility] Streptococcus pneumoniae serotype 1 caps ular antigen diphtheria [id number] protein conjugate vaccine / Streptococcus pneumoniae serotype 14 capsular antigen diphtheria [id number] protein conjugate vaccine / Streptococcus pneumoniae serotype 18C capsular antigen d Notes: Shake well prior to use (Same as: Prevnar 13) Inactive 02/03/2017 [facility] Docusate Sodium 50 MG / sennosides, MCFP 8.6 MG Oral Tablet Notes: (Same as Senokot-S) Equiv. to Rosalba-Colace. Inactive 02/03/2017 [facility] heparin Notes: porcine heparin Inactive 02/03/2017 [facility] Versed 1 mg, Route: IVP, PRN, Dosing Weight 90.909, kg, PRN Anxiety, Start date: 02/02/17 23:57:00 CDT, Duration: 30 day, Stop date: 03/04/17 23:56:00 CDT Inactive 02/03/2017 [facility] Ativan 1 mg, Route: IV, ONCE, Dosing Weight 90.909, kg, PRN Agitation, Start date: 02/02/17 23:33:00 CDT Inactive 02/03/2017 [facility] methotrexate 10 mg oral tablet 10 mg = 1 tab, PO, Q7D, 0 Refill(s) Active 02/03/2017 [facility] Aspirin 325 MG Oral Tablet 325 mg = 1 tab, PO, Daily, 0 Refill(s) Active 02/03/2017 [facility] Alendronic acid 40 MG Oral Tablet 40 mg = 1 tab, PO, Q7D, 0 Refill(s) Active 02/03/2017 [facility] Folic Acid 1 mg, Daily, 0 Refi ll(s) Active 02/03/2017 [facility] pravastatin 80 mg oral tablet 80 mg = 1 tab, PO, Daily, 0 Refill(s) Active 02/03/2017 [facility] Hydrochlorothiazide 12.5 MG / Lisinopril 20 MG Oral Tablet 1 tab, PO, Daily, 0 Refill(s) Active 02/03/2017 [facility] nter ketOROLAC 15 mg/mL injectable solution 15 mg, Route: IVP, Drug form: INJ, ONCE, Dosing Weight 72.727, kg, Priority: STAT, Start date: 02/02/17 18:18:00 CDT, Stop date: 02/02/17 18:18:00 CDT Inactive 02/02/2017 [facility] Compazine 10 mg, Route: IV, ON CE, Dosing Weight 72.727, kg, Start date: 02/02/17 18:17:00 CDT, Stop date: 02/02/17 18:17:00 CDT Inactive 02/02/2017 [facility] Pravastatin Sodium 1 tablet Orally Active 80 [...] Active 20-12.5 MG Orally Once a day [facility] Armen Pickett Pravastatin Sodium 1 tablet Orally Active 80 MG Orally Once a day [facility] Armen Pickett Otezla 1 tablet Orally [...] Armen Pickett PredniSONE TAKE 1 TABLET BY [facility] EVERY DAY NA Active 5 MG Garcia Cristian Pickett Allergies, Adverse Reactions, Alerts Substance Category Reaction Severity Reaction type Status Date Reported Comments Source Synvisc One Adverse Reaction pain, swelling Adverse Reactio n Active 02/16/2020 Armen Pickett Immunizations Immunization Date Given Site Status Last Updated Comments Source Flu Vaccine 04/12/2017 completed Armen Pickett pneumococcal 13-valent vaccine 02/03/2017 Not Given [facility], [facility] Results Order Name Results Value Reference Range Date Interpretation Comments Source ANEMIA STUDY Folate Lvl 78.7 >=3.0 ng/mL 02/03/2017 [facility] ANEMIA STUDY Vitamin B12 Lvl 326 254 - 1320 02/03/2017 [facility] CHEM PANEL Lactic Acid Lvl 0.6 0.5 - 2.2 02/03/2017 [facility] CHEM PANEL Phosphorus 3.3 2.5 - 4.5 02/03/2017 [facility] CHEM PANEL eGFR 72 02/03/2017 Result Comment: [...] should be multiplied by the estimated BMI. [facility] CHEM PANEL Calcium Lvl 8.6 8.5 - 10.5 02/03/2017 [facility] CHEM PANEL CO2 26 24 - 32 02/03/2017 [facility] CHEM PANEL Creatinine Lvl 0.84 0.50 - 1.40 02/03/2017 [facility] CHEM PANEL Sodium Lvl 141 135 - 145 02/03/2017 [facility] CHEM PANEL Chloride Lvl 106 95 - 109 02/03/2017 [facility] CHEM PANEL Potassium Lvl 3.9 3.5 - 5.1 02/03/2017 [facility] CHEM PANEL Glucose Lvl 104 70 - 99 02/03/2017 [facility] CHEM PANEL BUN 19 7 - 22 02/03/2017 [facility] CHEM PANEL AGAP 12.9 10.0 - 20.0 02/03/2017 [facility] CHEM PANEL Magnesium Lvl 2.2 1.8 - 2.4 02/03/2017 [facility] HEMATOLOGY WBC 5.6 3.7 - 10.4 02/03/2017 [facility] HEMATOLOGY MCV 89.6 80.0 - 98.0 02/03/2017 [facility] HEMATOLOGY RBC 3.85 4.20 - 5.40 02/03/2017 [facility] HEMATOLOGY RDW 14.8 11.5 - 14.5 02/03/2017 [facility] HEMATOLOGY Platelet 243 133 - 450 02/03/2017 [facility] HEMATOLOGY MCH 30.6 27.0 - 31.0 02/03/2017 [facility] HEMATOLOGY MCHC 34.1 32.0 - 36.0 02/03/2017 [facility] HEMATOLOGY MPV 8.3 7.4 - 10.4 02/03/2017 [facility] HEMATOLOGY Hgb 11.8 12.0 - 16.0 02/03/2017 [facility] HEMATOLOGY Hct 34.5 36.0 - 48.0 02/03/2017 [facility] HEMATOLOGY Segs-Bands # 3.8 1.5 - 8.1 02/03/2017 [facility] HEMATOLOGY Lymphocytes # 1.2 1.0 - 5.5 02/03/2017 [facility] HEMATOLOGY Monocytes # 0.5 0.0 - 0.8 02/03/2017 [facility] HEMATOLOGY Basophils 0.2 0.0 - 1.0 02/03/2017 [facility] HEMATOLOGY Eosinophils 0.6 0.0 - 4.0 02/03/2017 [facility] HEMATOLOGY Monocytes 9.3 2.0 - 12.0 02/03/2017 [facility] HEMATOLOGY Segs 68.1 45.0 - 75.0 02/03/2017 [facility] HEMATOLOGY Lymphocytes 21.8 20.0 - 40.0 02/03/2017 [facility] LIPIDS CHD Risk 2.26 3.90 - 5.80 02/03/2017 [facility] LIPIDS LDL (Calculated) 60 <=99 mg/dL 02/03/2017 [facility] LIPIDS HDL 58 >=61 mg/dL 02/03/2017 [facility] LIPIDS VLDL 13 02/03/2017 [facility] LIPIDS Chol 131 <=199 mg/dL 02/03/2017 [facility] LIPIDS Trig 63 <=149 mg/dL 02/03/2017 [facility] PARATHYROID PROFILE Ca Norm WB 1.07 1.05 - 1.25 02/03/2017 [facility] PARATHYROID PROFILE Ca Ion WB 1.06 1.05 - 1.25 02/03/2017 [facility] SPECIAL CHEMISTRY Hgb A1C 5.2 <=5.6 % 02/03/2017 [facility] DRUG SCREEN U Amph Scr Nega tive *NA* (02/02/17 6:02 PM) Negative 02/02/2017 [facility] DRUG SCREEN U Dolly Scr Nega tive *NA* (02/02/17 6:02 PM) Negative 02/02/2017 [facility] DRUG SCREEN U Benzodia Scr Nega tive *NA* (02/02/17 6:02 PM) Negative 02/02/2017 [facility] DRUG SCREEN U Cannab Scr Nega tive *NA* (02/02/17 6:02 PM) Negative 02/02/2017 [facility] DRUG SCREEN U Cocaine Scr Nega tive *NA* (02/02/17 6:02 PM) Negative 02/02/2017 [facility] DRUG SCREEN UDS Note See Note *NA* (02/02/17 6:02 PM) 02/02/2017 [facility] DRUG SCREEN U Opiate Scr Nega tive *NA* (02/02/17 6:02 PM) Negative 02/02/2017 [facility] DRUG SCREEN U Phencyc Scr Nega tive *NA* (02/02/17 6:02 PM) Negative 02/02/2017 [facility] URINE AND STOOL UA WBC 0-2 /HPF None Seen /HPF 02/02/2017 [facility] URINE AND STOOL UA Bacteria Few /HPF None Seen /HPF 02/02/2017 [facility] URINE AND STOOL UA RBC None Seen (02/02/17 6:02 PM) 0 - 2 02/02/2017 [facility] URINE AND STOOL UA Sq Epi Few /LPF Few /LPF 02/02/2017 [facility] URINE AND STOOL UA Ketones Negative *NA* (02/02/17 6:02 PM) Negative 02/02/2017 [facility] URINE AND STOOL UA Bili Negative *NA* (02/02/17 6:02 PM) Negative 02/02/2017 [facility] URINE AND STOOL UA Leuk Est Trace *ABN* (02/02/17 6:02 PM) Negative 02/02/2017 [facility] URINE AND STOOL UA Blood Negative (02/02/17 6:02 PM) Negative 02/02/2017 [facility] URINE AND STOOL UA Nitrite Negative (02/02/17 6:02 PM) Negative 02/02/2017 [facility] URINE AND STOOL UA Urobilinogen 0.2 0.1 - 1.0 02/02/2017 [facility] URINE AND STOOL UA Protein Negative (02/02/17 6:02 PM) Negative 02/02/2017 [facility] URINE AND STOOL UA pH 7.0 5.0 - 8.0 02/02/2017 [facility] URINE AND STOOL UA Glucose Negative (02/02/17 6:02 PM) Negative 02/02/2017 [facility] URINE AND STOOL UA Spec Grav 1.010 <=1.030 02/02/2017 [facility] URINE AND STOOL UA Color Yellow *NA* (02/02/17 6:02 PM) Yellow 02/02/2017 [facility] URINE AND STOOL UA Turbidity Slight Cloudy (02/02/17 6:02 PM) Clear 02/02/2017 [facility] CHEM PANEL Lactic Acid WB 1.4 0.5 - 2.2 02/02/2017 [facility] CARDIAC ENZYMES Troponin-I <0.02 0.00 - 0.40 02/02/2017 [facility] CHEM PANEL eGFR 54 02/02/2017 Result Comment: [...] should be multiplied by the estimated BMI. [facility] CHEM PANEL Chloride Lvl 105 95 - 109 02/02/2017 [facility] CHEM PANEL Calcium Lvl 9.1 8.5 - 10.5 02/02/2017 [facility] CHEM PANEL CO2 25 24 - 32 02/02/2017 [facility] CHEM PANEL Potassium Lvl 3.7 3.5 - 5.1 02/02/2017 [facility] CHEM PANEL Sodium Lvl 139 135 - 145 02/02/2017 [facility] CHEM PANEL Creatinine Lvl 1.07 0.50 - 1.40 02/02/2017 [facility] CHEM PANEL BUN 18 7 - 22 02/02/2017 [facility] CHEM PANEL Glucose Lvl 111 70 - 99 02/02/2017 [facility] CHEM PANEL Alk Phos 75 39 - 136 02/02/2017 [facility] CHEM PANEL Bili Total 0.8 0.2 - 1.3 02/02/2017 [facility] CHEM PANEL Albumin Lvl 4.3 3.5 - 5.0 02/02/2017 [facility] CHEM PANEL ALT 24 0 - 65 02/02/2017 [facility] CHEM PANEL AST 25 0 - 37 02/02/2017 [facility] CHEM PANEL Total Protein 7.5 6.4 - 8.4 02/02/2017 [facility] CHEM PANEL B/C Ratio 17 6 - 25 02/02/2017 [facility] CHEM PANEL AGAP 12.7 10.0 - 20.0 02/02/2017 [facility] CHEM PANEL Globulin 3.2 2.7 - 4.2 02/02/2017 [facility] CHEM PANEL A/G Ratio 1.3 0.7 - 1.6 02/02/2017 [facility] HEMATOLOGY PTT 26.1 22.9 - 35.8 02/02/2017 [facility] HEMATOLOGY PT 13.0 12.0 - 14.7 02/02/2017 [facility] HEMATOLOGY INR 0.96 0.85 - 1.17 02/02/2017 [facility] HEMATOLOGY MPV 8.2 7.4 - 10.4 02/02/2017 [facility] HEMATOLOGY Platelet 278 133 - 450 02/02/2017 [facility] HEMATOLOGY RDW 14.8 11.5 - 14.5 02/02/2017 [facility] HEMATOLOGY MCHC 33.9 32.0 - 36.0 02/02/2017 [facility] HEMATOLOGY MCH 30.1 27.0 - 31.0 02/02/2017 [facility] HEMATOLOGY Hgb 12.5 12.0 - 16.0 02/02/2017 [facility] HEMATOLOGY Hct 37.0 36.0 - 48.0 02/02/2017 [facility] HEMATOLOGY MCV 88.8 80.0 - 98.0 02/02/2017 [facility] HEMATOLOGY WBC 5.6 3.7 - 10.4 02/02/2017 [facility] HEMATOLOGY RBC 4.16 4.20 - 5.40 02/02/2017 [facility] HEMATOLOGY Monocytes # 0.4 0.0 - 0.8 02/02/2017 [facility] HEMATOLOGY Segs-Bands # 4.0 1.5 - 8.1 02/02/2017 [facility] HEMATOLOGY Lymphocytes # 1.1 1.0 - 5.5 02/02/2017 [facility] HEMATOLOGY Monocytes 7.8 2.0 - 12.0 02/02/2017 [facility] HEMATOLOGY Eosinophils 2.1 0.0 - 4.0 02/02/2017 [facility] HEMATOLOGY Basophils 0.2 0.0 - 1.0 02/02/2017 [facility] HEMATOLOGY Segs 70.5 45.0 - 75.0 02/02/2017 [facility] HEMATOLOGY Lymphocytes 19.4 20.0 - 40.0 02/02/2017 [facility] HEMATOLOGY Eosinophils # 0.1 0.0 - 0.5 02/02/2017 [facility] Pathology Reports No Data Provided for This Section Diagnostic Reports Report Value Date Source Cardiac SPECT multi studies NM Nuclear gated myocardial perfusion scan performed as per protocol at the nuclear medicine lab at [facility]. Lexiscan injected 0.4 mg intravenously as a stress agent. Cardiolite injected 11 mCi for resting protocol 30 mCi for stress protocol. Impression. Mild mild anterior wall ischemia noted. Left ventricular ejection fraction 60%, no evidence of wall motion abnormality noted. Abnormal nuclear stress test with mild anterior wall ischemia. 02/24/2017 [facility] Neck wo contrast MRA MRI OF TH E BRAIN MRA OF THE BRAIN MRA OF THE NECK DATE: COMPARISON: HISTORY: TECHNIQUE: Multiplanar MR imaging was performed utilizing T1, T2, diffusion, and susceptibility weighting. MR angiography of the intracranial circulation was performed utilizing 3-D canq-om-wwiaaw technique. Maximum intensity projection, MIP reformatted images were provided. Source images were also reviewed. MR angiography was performed from the upper thorax through the skull base utilizing 2-D frjl-dp-cabshp technique. 3-D ksaz-oy-zwqptq technique through the carotid bifurcations was also [...] major vascular abnormality. [place] SECTION: Neuro 02/03/2017 [facility] Brain wo contrast MRI MRI OF T HE BRAIN MRA OF THE BRAIN MRA OF THE NECK DATE: COMPARISON: HISTORY: TECHNIQUE: Multiplanar MR imaging was performed utilizing T1, T2, diffusion, and susceptibility weighting. MR angiography of the intracranial circulation was performed utilizing 3-D rhyw-cj-lgalbv technique. Maximum intensity projection, MIP reformatted images were provided. Source images were also reviewed. MR angiography was performed from the upper thorax through the skull base utilizing 2-D vdgd-rz-levova technique. 3-D lkle-df-ijdmny technique through the carotid bifurcations was also [...] major vascular abnormality. [place] SECTION: Neuro 02/03/2017 [facility] Brain wo contrast MRA MRI OF T HE BRAIN MRA OF THE BRAIN MRA OF THE NECK DATE: COMPARISON: HISTORY: TECHNIQUE: Multiplanar MR imaging was performed utilizing T1, T2, diffusion, and susceptibility weighting. MR angiography of the intracranial circulation was performed utilizing 3-D fvnc-tj-kibrfo technique. Maximum intensity projection, MIP reformatted images were provided. Source images were also reviewed. MR angiography was performed from the upper thorax through the skull base utilizing 2-D clbu-gh-cmsdjq technique. 3-D iegw-ib-ohakbd technique through the carotid bifurcations was also [...] bifurcation stenosis. Resident preliminary report by Dr. Suasnnah Lutz: 1. No evidence of recent infarction. 2. Chronic microangiopathic ischemic ch anges. 3. No major vascular abnormality. [place] SECTION: Neuro 02/03/2017 [facility] Brain wo contrast CT EXAM: CT BRAIN [...] acute intracranial abnormality. [place] SECTION: Neuro 02/02/2017 [facility] Chest 1view DX EXAM: XR CHEST 1 [...] identified. IMPRESSION: No acute radiographic abnormality. 02/02/2017 [facility] Consultation Notes No Data Provided for This Section Discharge Summaries No Data Provided for This Section History and Physicals No Data Provided for This Section Vital Signs Vital Sign Value Date Comments Source Weight 190.1 02/20/2020 [facility] Height 62 0 02/20/2020 [facility] Temperature Oral (F) 97.3 F 02/20/2020 Armen [...] Armen Pickett Heart Rate 76 11/18/2017 Armen Ipckett Diastolic (mm Hg) 70 11/18/2017 Armen Pickett [...] Pickett Temperature Oral (F) 98.1 F 02/03/2017 [facility] Systolic (mm Hg) 124 02/03/2017 [facility] Diastolic (mm Hg) 75 02/03/2017 [facility] Heart Rate 64 02/03/2017 [facility] Respitory Rate 18 02/03/2017 [facility] Systolic (mm Hg) 139 02/03/2017 [facility] Diastolic (mm Hg) 77 02/03/2017 [facility] Respitory Rate 18 02/03/2017 [facility] Temperature Oral (F) 96.8 F 02/03/2017 [facility] Heart Rate 72 02/03/2017 [facility] Heart Rate 61 02/03/2017 [facility] Temperature Oral (F) 96.9 F 02/03/2017 [facility] Respitory Rate 18 02/03/2017 [facility] Systolic (mm Hg) 101 02/03/2017 [facility] Diastolic (mm Hg) 58 02/03/2017 [facility] Height 157.48 cm 02/03/2017 [facility] Weight 90.909 02/03/2017 [facility] BMI Calculated 36.66 02/03/2017 [facility] Weight 72.727 02/02/2017 [facility] BMI Calculated 29.33 02/02/2017 [facility] Height 157.48 cm 02/02/2017 [facility] Encounters Location Location Details Encounter Type Encounter Number Reason For Visit Attending Provider ADM Date DC Date Status Source [facility] Observation [id number] Daniel Smithsey 02/02/2017 02/04/2017 [facility] Outpatient [id number] Refugio SolizRayna 02/24/2017 02/25/2017 [facility] Procedures Procedure Code Date Perfomer Comments Source Hysterectomy<sup>1</sup> [id number] uterus CA [facility] Assessment and Plan Assessment and Plan Date [...] Per the patient's , she was at [facility] with two of her great-granchildren when at [...] that has happened since she arrived to [facility] ER slightly after 4pm. Once she arrived at [facility], she was noted to be back near baseline, with only minor recall difficulties when asked to remember three words. She was alert and oriented x3 and answered questions appropriately. She does report a current left-sided headache over her synagogue region which she describes as pressure-like in nature. She is unsure of exactly when the headache began, but denies any associated photophobia, phonophobia, nausea, or vomiting. 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 Once she arrived at [facility], she was noted to be back near baseline, with only minor recall difficulties when asked to remember three words. She was alert and oriented x3 and answered questions appropriately. She does report a current left-sided headache over her synagogue region which she describes as pressure-like in nature. She is unsure of exactly when the headache began, but denies any associated photophobia, phonophobia, nausea, or vomiting. She reports a history of migraine headaches typically located over her left synagogue region, but states they are infrequent (last [...] PT/OT/ST referrals at this time Assessment: Ashwin iMn is a 66yo woman with PMH of [...] qhs at home (denies prior stroke or [place] and unsure why she is on 325mg ASA as opposed to 81mg) -Continue home doses of ASA and pravasta tin -Hgb A1c and lipid panel pending # GI -continue home pantoprazole Diet: Adult Regular GI prophylaxis: home medication of pantoprazole Adkins present: No Bowel prophylaxis: Docusate-Senna DVT Prophylaxis: VERNON/SCD/Hep sq Code status: Full code Level of care: Observation Discharge Disposition: [facility] [facility] [facility] Follow up appointments: General Acute Hospitaling/[place] Neurology (10th floor [facility], call [phone] for appointment) Can follow-up with Chloé Cruz in [facility] resident clinic if ok with primary team and patient The case was discussed with the documentation supervisor General Neurology attending Dr Begum. Patient and family members were updated on the same and all questions answered. [place] [phone] (general neurology phone) Chloé Cruz PGY-2 [facility] Neurology Neurology staff Teaching physician statement I reviewed the resident's note dated 02/02 I saw and examined this patient. She is now awake with limited recall for the events of yesterday. I discussed the case with Dr. Cruz I personally viewed laboratory studies and imaging. I agree with the plan. Diagnosis: transient global amnesia Level of service: [id number] Minor Dunham MD [id number] Professor of Neurology 02/04/2017 [facility] Plan of Care No Data Provided for This Section Social History Social History Date Source Social History TypeResponse Substance Abuse Use: None. Alcohol Never Smoking Status Never smoker; Exposure to Tobacco Smoke None; Cigarette Smoking Last 365 Days No; Reg Smoking Cessation Counseling No 02/03/2017 [facility] Social History TypeResponse Substance Abuse Use: None. Alcohol Never Smoking Status Never smoker; Exposure to Tobacco Smoke None; Cigarette Smoking Last 365 Days No; Reg Smoking Cessation Counseling No 02/03/2017 [facility] Family History No Data Provided for This Section Advance Directives No Data Provided for This Section Functional Status No Data Provided for This Section
--- OUTSIDE RECORDS SUMMARY | 2020-05-25 21:42 | XMS REPORT | Clinical Summary ---
Author Author [facility] Organization [facility] Address Unknown Phone Unavailable Care Team Providers Care Back Joiner Name Role Phone Asked, No Pcp PCP [...] APPE NDECTOMY, LAPAROSCOPIC; Surgeon: Irasema Diamond; Location: [facility]; Service: General; Laterality: Right; Medical History [...] Plan / Dates Group Medicare MEDICARE MEDICARE [id number] 2017-P [place], PART A AND resent [place] B Commercial AARP AARP [id number] 2017-P SUPPLEMENT resent Advance Directives For more information, please contact: [phone] Patient Engagement Engineer Explanation Type Date Recorded Advance Directives, Living Will and Medical Power of Primary Care Nurse
--- OUTSIDE RECORDS SUMMARY | 2020-05-25 21:43 | XMS REPORT | Continuity of Care Document ---
Author Author [facility] t Organization [facility] Address [address] [place] [address] Phone Unavailable Care Team Providers Care Scooper Name Role Phone MD REFUGIO WAY PCP XU SHANNON Attphys Unavailable Sergey Way Attphys Anshu Dunham Attphys Anshu Dunham Admphys Payers Payer Name Policy Type Policy Number Effective Date Expiration Date S elizabeth [facility] [id number] 2015 00:00:00 [facility] Medicare A & B [id number] 2014 00:00:00 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 Allergic reaction Problem Active [facility] Gastroesophageal reflux disease (disorder) Gastroesophageal reflux disease (disorder) Resolved Problem 02/27/2017 [facility] Problem Resolved 2017-02-27 01:42:53 Oliver Figueroa Hyperlipidemia (disorder) Hype rlipidemia (disorder) Resolved Problem 02/27/2017 [facility] Problem Resolved 2017-02-27 01:42:53 [facility] Hypertensive disorder, systemic arterial (disorder) Hypertensive disorder, systemic arterial (disorder) Resolved Problem 02/27/2017 [facility] Problem Resolved 2017-02-27 01:42:53 Oliver Figueroa Hyperthyroidism (disorder) Hyp erthyroidism (disorder) Resolved Problem 02/27/2017 [facility] Problem Resolved 2017-02-27 01:42:53 [facility] Arthritis (disorder) Arth ritis (disorder) Resolved Problem 02/27/2017 left hip and spine [facility] Problem Resolved 2017-02-27 01:42:53 [facility] Localized osteoarthritis of knees, bilateral Localized osteoarthritis of knees, bilateral Active Problem 05/17/2020 Armen Pickett Problem Active 2020-05-17 03:45:19 Oliver Figueroa Psoriasis Psor iasis Active Problem 05/17/2020 Armen Pickett Problem Active 2020-05-17 03:45:19 Oliver Figueroa Neck pain Neck pain Active Problem 11/02/2019 Armen Pickett Problem Active 2019-11-02 02:45:09 Oliver Figueroa Polyarthralgia Poly arthralgia Active Problem 11/02/2019 Armen Pickett Problem Active 2019-11-02 02:45:09 Oliver Figueroa Psoriatic arthritis Psor iatic arthritis Active Problem 05/17/2020 Armen Pickett Problem Active 2020-05-17 03:45:19 Oliver Figueroa Long-term use of high-risk medication Long-term use of high-risk medication Active Problem 05/17/2020 Armen Pickett Problem Active 2020-05-17 03:45:19 Oliver Figueroa Need for prophylactic vaccination and inoculation agai [...] Armen Pickett Problem Active 2020-05-17 03:45:19 Oliver [facility] Osteopenia of multiple sites O steopenia of multiple sites Active Problem 05/17/2020 Armen Pickett Problem Active 2020-05-17 03:45:19 Oliver Figueroa Vitamin D deficiency Norma min D deficiency Active Problem 05/17/2020 Armen Pickett Problem Active 2020-05-17 03:45:19 Oliver [facility] Shoulder pain, right Shou lder pain, right Active Diagnosis 02/27/2020 Armen Pickett Diagnosis Active 2020-02-27 02:45:48 Oliver Figueroa TRANSIENT GLOBAL AMNESIA SHANNON SIENT GLOBAL AMNESIA Active [facility] Diagnosis Active 2017-02-03 15:05:00 Olievr Figueroa 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 [facility] Active 2017-02-24 09:42:00 Oliver Figueroa Allergies, Adverse Reactions, Alerts Allergy Name Allergy Type Status Severity Reaction(s) Onset Date Inacti ve Date Treating Clinician Comments Source Synvisc One Synvisc One Active pain, swelling 2020-02-16 00:00:00 Oliver Figueroa Family History Family Member Diagnosis Comments Start Date Stop Date Source Natural father Heart disease [facility] Natural father Hyperlipidemia [place] [facility] Natural father Hypertension [facility] Natural mother Cancer [facility] Natural mother Hyperlipidemia [place] [facility] Natural mother Hypertension [facility] Natural sister Heart disease [facility] Social History Social Habit Start Date Stop Date Quantity Comments Source Sex Assigned At Nina barrientoscatrina Martino Alcohol intake 2017-12-13 00:00:00 2017-12-13 00:00:00 Current non-drinker of alcohol (finding) Kolton Barrientosist Social History 2017-02-03 04:09:40 2017-02-03 04:09:40 Oliver Figueroa Smoking Status Start Date Stop Date Source Never smoker [place] [facility] Medications Ordered Medication Name Filled Medication Name Start Date Stop Da te Current Medication? Ordering Clinician Indication Dosage Frequency Signature (SIG) Comments Components Source Medrol Dose Malik 2020-05-10 00:00:00 Yes Asif Pickett as directed [facility] Diphenhydramine Hcl (Benadryl) 25 Mg CAPSULE Diphenhyd ramine Hcl (Benadryl) 25 Mg CAPSULE 2020-05-05 05:14:00 Yes 50 E very 6 Hours as needed for Itching [facility] Famotidine (Pepcid) 20 Mg TABLET Famotidine (Pepcid) 20 Mg T ABLET 2020-05-05 05:14:00 Yes [address] [facility] Cyclobenzaprine Hcl (Flexeril) 5 Mg TABLET Cyclobenzap rine Hcl (Flexeril) 5 Mg TABLET 2020-05-04 04:23:00 Yes 10 Ever y 8 Hours as needed for Moderate Pain (4-6) [facility] Prednisone Prednisone 2020-05-04 04:23:00 Yes 60 Daily as needed for Moderate Pain (4-6) [facility] Klor-Con 2020-03-06 00:00:00 Yes Brad Garcia 1 p acket with food [facility] Pantoprazole Sodium 2020-02-27 02:46:25 Yes Brad Garcia 1 tablet [facility] Levothyroxine Sodium 2020-02-27 02:46:25 Yes Brad Garcia 1 tablet [facility] Alendronate Sodium 2020-02-27 02:46:25 Yes Brad Garcia 1 tablet [facility] Rock Aspirin 2020-02-27 02:46:25 Yes Brad Garcia 1 tablet [facility] Lisinopril-Hydrochlorothiazide 2020-02-27 02:46:25 Yes P edro Garcia 1 tablet [facility] Otezla 2020-02-27 02:46:25 Yes Brad Garcia 1 tab let [facility] Tylenol Arthritis Pain 2020-02-27 02:46:25 Yes Brad Amb marcial 1 tablet as needed [facility] Aspirin 81 2020-02-27 02:46:25 Yes Brad Garcia 1 tablet [facility] Rosuvastatin Calcium 2020-02-27 02:46:25 Yes Brad Garcia 1 tablet [facility] PredniSONE 2020-02-27 02:46:25 Yes Brad Garcia TAKE 1 TABLET BY MOUTH EVERY DAY [facility] Vitamin D (Ergocalciferol) 2019-10-18 00:00:00 Yes Colten Bonilla 1 capsule [facility] Vitamin D (Ergocalciferol) 2019-07-26 00:00:00 Yes Brda Garcia 1 capsule [facility] Pravastatin Sodium 2019-03-29 02:50:45 Yes Wajeeha Juan 1 tablet [facility] Alendronate Sodium 2018-07-14 00:00:00 Yes Wajeeha Yousa f TAKE 1 TABLET BY MOUTH ONCE A WEEK [facility] Methotrexate 2018-06-24 03:46:43 Yes Wajeeha Juan TAKE 5 TABLETS BY MOUTH ONCE EVERY WEEK [facility] Folic Acid 2018-06-24 03:46:43 Yes Wajeeha Juan 1 tablet [facility] Otezla 2018-06-13 00:00:00 Yes Wajeeha Juan 1 t ablet [facility] Methotrexate 2018-06-09 00:00:00 Yes Wajeeha Juan TAKE 5 TABLETS BY MOUTH ONCE EVERY WEEK [facility] methotrexate 2.5 MG tablet 2017-12-14 19:16:30 Yes [...] 4 MG tablet 2017-12-14 19:16:30 Yes 4mg [id number] Take 4 mg by mouth 3 (three) times a day as needed for nausea or vomiting. [facility] dicyclomine (BENTYL) 20 mg tablet 2017-12-14 19:16:30 Yes 20mg Q.25D Take 20 mg by mouth 4 (four) times a day as needed. [facility] folic acid (FOLVITE) 1 MG tablet 2017-12-14 19:16:30 Yes 1mg Q7D Take 1 mg by mouth once a week. [facility] lisinopril (PRINIVIL,ZESTRIL) 20 mg tablet 2017-12-14 19:16:30 Yes 20mg QD Take 20 mg by mouth daily. Shahrzad villanueva [facility] hydroCHLOROthiazide (HYDRODIURIL) 12.5 MG tablet 2017-12-14 19:16:30 Yes 12.5mg QD Take 12.5 mg by mouth daily. [facility] pravastatin (PRAVACHOL) 40 MG tablet 2017-12-14 19:16:30 Ye s 80mg QD Take 80 mg by mouth daily. [place] [facility] PredniSONE 2017-11-08 00:00:00 Yes Dianaeha Juan 1 tab prn [facility] PredniSONE 2017-11-08 00:00:00 Yes Dianaeha Juan 1 tab prn [facility] Alendronate Sodium 2017-09-20 00:00:00 Yes Evelyn Morrell f take 1 tablet [facility] Diclofenac Sodium 2017-06-10 00:00:00 Yes Wajeeha Juan 1 application to affected area [facility] Folic Acid 2017-04-20 00:00:00 Yes Dianaeha Juan 1 tablet [facility] Methotrexate 2017-04-20 00:00:00 Yes Dianaeha Juan 3 tabs altogether [facility] Pravastatin Sodium 2017-04-15 02:46:24 Yes Dianaeha Juan 1 tablet [facility] Levothyroxine Sodium 2017-04-15 02:46:24 Yes Jammiea Juan 1 tablet [facility] Lisinopril-Hydrochlorothiazide 2017-04-15 02:46:24 Yes Fernando landa Juan 1 tablet [facility] Rock Aspirin 2017-04-15 02:46:24 Yes Waalejandroeha Juan 1 tablet [facility] Pantoprazole Sodium 2017-04-15 02:46:24 Yes Waalejandrokevina Juan 1 tablet [facility] Alendronate Sodium 2017-04-15 02:46:24 Yes Wajeeha Juna 1 tablet [facility] Pravastatin 2017-02-04 02:00:00 No Notes: ( Same as: Pravachol) [facility] Pravastatin 2017-02-03 14:00:00 No 80 mg, Route: PO, Drug form: TAB, Daily, Dosing Weight 90.909, kg, Start date: 02/03/17 9:00:00 CDT, Duration: 30 day, Stop date: 03/04/17 9:00:00 CDT [facility]al [facility] Hydrochlorothiazide 12.5 MG / Lisinopril 20 MG Oral Tablet 2017-02-03 14:00:00 No 1 tab, Rou te: PO, Drug Form: TAB, Dosing Weight 90.909, kg, Daily, Start date: 02/03/17 9:00:00 CDT, Duration: 30 day, Stop date: 03/04/17 9:00:00 CDT [facility] Folic Acid 2017-02-03 14:00:00 No Notes: (S roel as: Folvite) [facility] Aspirin 325 MG Oral Tablet 2017-02-03 14:00:00 No Notes: Take with food. [facility] Hydrochlorothiazide 25 mg 2017-02-03 14:00:00 No Hydrochlorothiazide 25 mg, 12.5 mg, 0.5 tab, Drug form: MISC, Route: PO, Daily, 02/03/17 9:00:00 CDT, Duration: 30 day, Stop date: 03/04/17 9:00:00 CDT [facility] lisinopril 2017-02-03 14:00:00 No Notes: (Same as: Prinivludwig Zestril) [facility] Streptococcus pneumoniae serotype 1 caps ular antigen diphtheria [id number] protein conjugate vaccine / Streptococcus pneumoniae serotype 14 capsular antigen diphtheria [id number] protein conjugate vaccine / Streptococcus pneumoniae serotype 18C capsular antigen d 2017-02-03 14:00:00 No Notes: Shake well prior to use (Same as: Prevnar 13) [facility] [place] Docusate Sodium 50 MG / sennosides, SNF 8.6 MG Oral Tablet 2017-02-03 14:00:00 No Notes: (Same as Senokot-S) Equ iv. to Rosalba-Colace. [facility] heparin 2017-02-03 05:00:00 No Notes: dylon ne heparin [facility] Versed 2017-02-03 04:57:00 No 1 mg, Route: IVP, PRN, Dosing Weight 90.909, kg, PRN Anxiety, Start date: 02/02/17 23:57:00 CDT, Duration: 30 day, Stop date: 03/04/17 23:56:00 CDT Memino Figueroa Ativan 2017-02-03 04:33:00 No 1 mg, Route: IV, ONCE, Dosing Weight 90.909, kg, PRN Agitation, Start date: 02/02/17 23:33:00 CDT [facility] methotrexate 10 mg oral tablet 2017-02-03 04:17:00 Yes 10 mg = 1 tab, PO, Q7D, 0 Refill(s) [facility] Aspirin 325 MG Oral Tablet 2017-02-03 04:17:00 Yes 325 mg = 1 tab, PO, Daily, 0 Refill(s) [facility] Alendronic acid 40 MG Oral Tablet 2017-02-03 04:17:00 Yes 40 mg = 1 tab, PO, Q7D, 0 Refill(s) [facility] Folic Acid 2017-02-03 04:17:00 Yes 1 mg, Keila ly, 0 Refill(s) [facility] pravastatin 80 mg oral tablet 2017-02-03 04:17:00 Yes 80 mg = 1 tab, PO, Daily, 0 Refill(s) [facility] Hydrochlorothiazide 12.5 MG / Lisinopril 20 MG Oral Tablet 2017-02-03 04:17:00 Yes 1 tab, PO, Daily, 0 Refill(s) [facility] ketOROLAC 15 mg/mL injectable solution 2017-02-02 23:18:00 No 15 mg, Route: IVP, Drug form: INJ, ONCE, Dosing Weight 72.727, kg, Priority: STAT, Start date: 02/02/17 18:18:00 CDT, Stop date: 02/02/17 18:18:00 CDT [facility] Compazine 2017-02-02 23:17:00 No 10 mg, Route: IV, ONCE, Dosing Weight 72.727, kg, Start date: 02/02/17 18:17:00 CDT, Stop date: 02/02/17 18:17:00 CDT [facility] Vital Signs Vital Name Observation Time Observation Value Comments Source Oxygen saturation by Pulse oximetry 2020-05-05 04:25:00 100 /min [facility] Weight 2020-05-05 04:25:00 190 [lb_av] [facility] BMI (Body Mass Index) 2020-05-05 04:25:00 34.8 kg/m2 [facility] Weight 2020-02-20 15:00:00 [facility] Height 2020-02-20 15:00:00 [facility] Temperature Oral (F) 2020-02-20 15:00:00 97.3 F [facility] Heart Rate 2020-02-20 15:00:00 [facility] Diastolic (mm Hg) 2020-02-20 15:00:00 [facility] [place] Systolic (mm Hg) 2020-02-20 15:00:00 [facility] [place] Weight 2020-02-16 14:45:00 [facility] [place] Height 2020-02-16 14:45:00 [facility] Temperature Oral (F) 2020-02-16 14:45:00 97.0 F [facility] Heart Rate 2020-02-16 14:45:00 [facility] Diastolic (mm Hg) 2020-02-16 14:45:00 [facility] Systolic (mm Hg) 2020-02-16 14:45:00 Silvino rial [facility] Weight 2019-10-26 13:15:00 [facility] Height 2019-10-26 13:15:00 [facility] [place] Temperature Oral (F) 2019-10-26 13:15:00 97.4 F [facility] [place] Heart Rate 2019-10-26 13:15:00 [facility] [place] Diastolic (mm Hg) 2019-10-26 13:15:00 [facility] [place] Systolic (mm Hg) 2019-10-26 13:15:00 Silvino rial [facility] Weight 2019-07-25 14:45:00 [facility] Height 2019-07-25 14:45:00 [facility] Temperature Oral (F) 2019-07-25 14:45:00 98.2 F [facility] Heart Rate 2019-07-25 14:45:00 [facility] [place] Diastolic (mm Hg) 2019-07-25 14:45:00 [facility] [place] Systolic (mm Hg) 2019-07-25 14:45:00 [facility] [place] Weight 2019-02-01 16:45:00 [facility] Height 2019-02-01 16:45:00 [facility] Temperature Oral (F) 2019-02-01 16:45:00 97.8 F [facility] [place] Heart Rate 2019-02-01 16:45:00 [facility] Diastolic (mm Hg) 2019-02-01 16:45:00 [facility] [place] Systolic (mm Hg) 2019-02-01 16:45:00 Silvino rial [facility] Weight 2019-01-24 16:45:00 [facility] Height 2019-01-24 16:45:00 [facility] [place] Temperature Oral (F) 2019-01-24 16:45:00 97.9 F [facility] Heart Rate 2019-01-24 16:45:00 [facility] Diastolic (mm Hg) 2019-01-24 16:45:00 Mem o[facility] Systolic (mm Hg) 2019-01-24 16:45:00 Silvino rial [facility] Weight 2018-09-20 15:30:00 [facility] [place] Height 2018-09-20 15:30:00 [facility] [place] Temperature Oral (F) 2018-09-20 15:30:00 98.0 F [facility] Heart Rate 2018-09-20 15:30:00 [facility] Diastolic (mm Hg) 2018-09-20 15:30:00 Mem o[facility] Systolic (mm Hg) 2018-09-20 15:30:00 [facility] [place] Weight 2018-09-14 15:45:00 [facility] [place] Height 2018-09-14 15:45:00 [facility] Temperature Oral (F) 2018-09-14 15:45:00 98.1 F [facility] Heart Rate 2018-09-14 15:45:00 [facility] Diastolic (mm Hg) 2018-09-14 15:45:00 Mem o[facility] Systolic (mm Hg) 2018-09-14 15:45:00 Silvino rial [facility] Weight 2018-06-16 19:00:00 [facility] Height 2018-06-16 19:00:00 [facility] Temperature Oral (F) 2018-06-16 19:00:00 97.0 F [facility] Heart Rate 2018-06-16 19:00:00 [facility] Diastolic (mm Hg) 2018-06-16 19:00:00 [facility] [place] Systolic (mm Hg) 2018-06-16 19:00:00 Silvino rial [facility] Weight 2018-06-13 17:45:00 [facility] Height 2018-06-13 17:45:00 [facility] Temperature Oral (F) 2018-06-13 17:45:00 98.5 F [facility] Heart Rate 2018-06-13 17:45:00 [facility] [place] Diastolic (mm Hg) 2018-06-13 17:45:00 [facility] [place] Systolic (mm Hg) 2018-06-13 17:45:00 [facility] [place] Weight 2018-03-14 18:00:00 [facility] Height 2018-03-14 18:00:00 [facility] Temperature Oral (F) 2018-03-14 18:00:00 98.5 F [facility] Heart Rate 2018-03-14 18:00:00 [facility] [place] Diastolic (mm Hg) 2018-03-14 18:00:00 [facility] Systolic (mm Hg) 2018-03-14 18:00:00 Silvino rial [facility] Weight 2018-02-22 16:30:00 [facility] Height 2018-02-22 16:30:00 [facility] Temperature Oral (F) 2018-02-22 16:30:00 97.4 F [facility] Heart Rate 2018-02-22 16:30:00 [facility] Diastolic (mm Hg) 2018-02-22 16:30:00 Mem o[facility] Systolic (mm Hg) 2018-02-22 16:30:00 Silvino rial [facility] Weight 2017-11-18 20:30:00 [facility] Height 2017-11-18 20:30:00 [facility] Temperature Oral (F) 2017-11-18 20:30:00 97.9 F [facility] Heart Rate 2017-11-18 20:30:00 [facility] Diastolic (mm Hg) 2017-11-18 20:30:00 [facility] [place] Systolic (mm Hg) 2017-11-18 20:30:00 Silvino rial [facility] Weight 2017-11-08 15:45:00 [facility] Height 2017-11-08 15:45:00 [facility] Temperature Oral (F) 2017-11-08 15:45:00 97.2 F [facility] Heart Rate 2017-11-08 15:45:00 [facility] Diastolic (mm Hg) 2017-11-08 15:45:00 Mem o[facility] Systolic (mm Hg) 2017-11-08 15:45:00 Silvino rial [facility] Weight 2017-08-11 20:45:00 [facility] Height 2017-08-11 20:45:00 [facility] Temperature Oral (F) 2017-08-11 20:45:00 97.8 F [facility] Heart Rate 2017-08-11 20:45:00 [facility] [place] Diastolic (mm Hg) 2017-08-11 20:45:00 Mem o[facility] Systolic (mm Hg) 2017-08-11 20:45:00 Silvino rial [facility] Weight 2017-08-10 15:15:00 [facility] Height 2017-08-10 15:15:00 [facility] Temperature Oral (F) 2017-08-10 15:15:00 97.2 F [facility] Heart Rate 2017-08-10 15:15:00 [facility] Diastolic (mm Hg) 2017-08-10 15:15:00 Mem [facility] Systolic (mm Hg) 2017-08-10 15:15:00 [facility] [place] Weight 2017-04-12 13:00:00 [facility] Height 2017-04-12 13:00:00 [facility] Temperature Oral (F) 2017-04-12 13:00:00 97.2 F [facility] Heart Rate 2017-04-12 13:00:00 [facility] [place] Diastolic (mm Hg) 2017-04-12 13:00:00 [facility] Systolic (mm Hg) 2017-04-12 13:00:00 Silvino rial [facility] Temperature Oral (F) 2017-02-03 20:39:00 98.1 F [facility] Systolic (mm Hg) 2017-02-03 20:39:00 Silvino rial [facility] Diastolic (mm Hg) 2017-02-03 20:39:00 [facility] [place] Heart Rate 2017-02-03 20:39:00 [facility] Respitory Rate 2017-02-03 20:39:00 [facility] Systolic (mm Hg) 2017-02-03 16:27:00 [facility]ino [facility] [place] Diastolic (mm Hg) 2017-02-03 16:27:00 [facility] Respitory Rate 2017-02-03 16:27:00 [facility] [place] Temperature Oral (F) 2017-02-03 16:27:00 96.8 F [facility] Heart Rate 2017-02-03 16:27:00 [facility] Heart Rate 2017-02-03 10:08:00 [facility] Temperature Oral (F) 2017-02-03 10:08:00 96.9 F [facility] Respitory Rate 2017-02-03 10:08:00 [facility] [place] Systolic (mm Hg) 2017-02-03 10:08:00 Silvino rial [facility] Diastolic (mm Hg) 2017-02-03 10:08:00 [facility] Height 2017-02-03 03:57:00 157.48 cm [facility] [place] Weight 2017-02-03 03:57:00 [facility] BMI Calculated 2017-02-03 03:57:00 [facility] [place] Weight 2017-02-02 21:18:00 [facility] BMI Calculated 2017-02-02 21:18:00 [facility] [place] Height 2017-02-02 21:18:00 157.48 cm [facility] Procedures Procedure Date / Time Performed Performing Clinician Sourc e Hysterectomy<sup>1</sup> [facility] [place] Plan of Care Planned Activity Planned Date Details Comments Source Instructions Allergic Reaction [facility] Encounters Start Date/Time End Date[facility]Time En[facility] Source 2020-05-16 09:42:00 2020-05-16 09:42:00 Outpatient Asif SMITH [id number] Armen Pickett MD 2020-05-10 13:30:00 2020-05-10 13:30:00 Outpatient MD SARAH Saenz MD [place] [id number] Armen Pickett MD 2020-05-05 04:30:00 2020-05-05 05:36:00 Departed Emergency Room [facility] [id number] [facility] 2020-05-04 03:57:00 2020-05-04 04:39:00 Departed Emergency Room [facility] [id number] [facility] 2020-03-06 15:50:00 2020-03-06 15:50:00 Outpatient Asif Pickett MD PA [id number] Armen Pickett MD 2020-02-20 10:00:00 2020-02-20 10:00:00 Outpatient Asif Pickett MD PA [id number] Armen Pickett MD 2020-02-16 09:45:00 2020-02-16 09:45:00 Outpatient Asif Pickett MD PA [id number] Armen Pickett MD 2019-10-26 08:15:00 2019-10-26 08:15:00 Outpatient Asif Pickett MD PA [id number] Armen Pickett MD 2019-10-18 12:13:00 2019-10-18 12:13:00 Outpatient Asif Pickett MD PA [id number] Armen Pickett MD 2019-09-21 11:26:00 2019-09-21 11:26:00 Outpatient Asif Pickett MD PA [id number] Armen Pickett MD 2019-07-26 12:18:00 2019-07-26 12:18:00 Outpatient Asif Pickett MD PA [id number] Armen Pickett MD 2019-07-25 16:46:00 2019-07-25 16:46:00 Outpatient MD SARAH Saenz MD PA [id number] Armen Pickett MD 2019-07-25 09:45:00 2019-07-25 09:45:00 Outpatient Asif Pickett MD PA [id number] Armen Pickett MD 2019-07-17 14:14:00 2019-07-17 14:14:00 Outpatient Asif SMITH [id number] Armen Pickett MD 2019-03-31 11:19:00 2019-03-31 11:19:00 Outpatient MD SARAH Saenz MD PA [id number] Armen Pickett MD 2019-02-01 11:45:00 2019-02-01 11:45:00 Outpatient MD SARAH Zuniga MD PA [id number] Armen Pickett MD 2019-01-24 12:38:00 2019-01-24 12:38:00 Outpatient Asif SMITH [id number] Armen Pickett MD 2019-01-24 11:45:00 2019-01-24 11:45:00 Outpatient Asif Pickett MD PA [id number] Armen Pickett MD 2019-01-23 15:23:00 2019-01-23 15:23:00 Outpatient Asif Pickett MD PA [id number] Armen Pickett MD 2018-09-20 10:30:00 2018-09-20 10:30:00 Outpatient Asif Pickett MD PA [id number] Armen Pickett MD 2018-09-14 11:15:00 2018-09-14 11:15:00 Outpatient Asif Pickett MD PA [id number] Armen Pickett MD 2018-09-14 10:45:00 2018-09-14 10:45:00 Outpatient Asif Pickett MD PA [id number] Armen Pickett MD 2018-07-14 15:32:00 2018-07-14 15:32:00 Outpatient Asif Pickett MD PA [id number] Armen Pickett MD 2018-06-16 13:00:00 2018-06-16 13:00:00 Outpatient Asif Pickett MD PA [id number] Armen Pickett MD 2018-06-13 12:53:00 2018-06-13 12:53:00 Outpatient Asif Pickett MD PA [id number] Armen Pickett MD 2018-06-13 11:45:00 2018-06-13 11:45:00 Outpatient Asif Pickett MD [place] [id number] Armen Pickett MD 2018-06-09 09:07:00 2018-06-09 09:07:00 Outpatient Asif Pickett MD PA [id number] Armen Pickett MD 2018-03-14 13:00:00 2018-03-14 13:00:00 Outpatient Asif Pickett MD PA [id number] Armen Pickett MD 2018-02-22 12:13:00 2018-02-22 12:13:00 Outpatient Asif Pickett MD PA [id number] Armen Pickett MD 2018-02-22 11:30:00 2018-02-22 11:30:00 Outpatient Asif Pickett MD PA [id number] Armen Pickett MD 2017-11-18 15:30:00 2017-11-18 15:30:00 Outpatient Asif Pickett MD PA [id number] Armen Pickett MD 2017-11-14 17:08:00 2017-11-14 17:08:00 Outpatient Asif Pickett MD PA [id number] Armen Pickett MD 2017-11-12 10:46:00 2017-11-12 10:46:00 Outpatient Asif SMITH [id number] Armen Pickett MD 2017-11-08 10:45:00 2017-11-08 10:45:00 Outpatient Asif Pickett MD PA [id number] Armen Pickett MD 2017-09-20 15:28:00 2017-09-20 15:28:00 Outpatient Asif Pickett MD PA [id number] Armen Pickett MD 2017-09-06 10:06:00 2017-09-06 10:06:00 Outpatient Asif Pickett MD PA [id number] Armen Pickett MD 2017-08-11 14:45:00 2017-08-11 14:45:00 Outpatient Asif SMITH [id number] Armen Pickett MD 2017-08-11 12:37:00 2017-08-11 12:37:00 Outpatient Asif SMITH [id number] Armen Pickett MD 2017-08-10 09:52:00 2017-08-10 09:52:00 Outpatient Asif Pickett MD PA [id number] Armen Pickett MD 2017-08-10 09:15:00 2017-08-10 09:15:00 Outpatient Asif Pickett MD PA [id number] Armen Pickett MD 2017-06-10 11:23:00 2017-06-10 11:23:00 Outpatient Asif Pickett MD PA [id number] Armen Pickett MD 2017-04-20 08:57:00 2017-04-20 08:57:00 Outpatient Asif Pickett MD PA [id number] Armen Pickett MD 2017-04-16 12:57:00 2017-04-16 12:57:00 Outpatient Asif Pickett MD PA [id number] Armen Pickett MD 2017-04-12 08:00:00 2017-04-12 08:00:00 Outpatient Asif Pickett MD PA [id number] Armen Pickett MD 2017-02-24 09:34:00 2017-02-24 23:59:00 Outpatient Refugio Jaramillo V [facility] [id number] 2017-02-02 16:18:00 2017-02-03 20:50:00 Outpatient Daniel Dunham [facility] [id number] Results Test Description Test Time Test Comments Results Result Comments Source CT BRAIN WO 2020-05-25 20:40:00 [facility] 1950 Sex: [place] [id number] Patient Name: ASHWIN MIN MR #: [id number] : 1950 Age/Sex: 70/F Req #: [id number] [facility] Physician: Ordered by: XU SHANNON DO Report #: [id number] Location: Room/Bed: Procedure: [id number] CT/CT BRAIN WO Exam Date: 05/25/20 Exam Time: 1953 REPORT STATUS: Signed Exam: Head CT without contrast History: Neck and back pain Comparison studies: Prior brain MRI 08/28/2015 is unavailable on the PACS at the time of dictation. Technique: Axial images were obtained from the skull base to the vertex. Coronal and sagittal images reconstructed from the axial data. Dose modulation, iterative reconstruction, and/or weight based adjustment of the mA/kV was utilized to reduce the radiation dose to as low as reasonably achievable. Radiation dose: Total DLP: 921.4 mGy*cm. Estimated effective dose: DLP x 0.015 Intravenous contrast: None Findings: Scalp: Incidental small nodule in the left p osterior frontal scalp, possibly small epidermoid inclusion cyst. No other abnormalities. Bones: No fractures, blastic or lytic lesions. Brain sulci: Appropriate for age. Ventricles: Normal in size and configuration. No hydrocephalus. Extra-axial spaces: No masses, no fluid collection. Parenchyma: No mass, acute hemorrhage or acute cortical vascular insults. A few scattered hypodensities in the supratentorial white matter are nonspecific but most compatible with chronic small vessel ischemic changes. Sellar/suprasellar region: No abnormalities. Craniocervical junction: Patent foramen magnum. No Chiari one malformation. Incidental findings: Atherosclerotic calcifications in the carotid siphons. IMPRESSION: 1. No acute intracranial abnormalities. 2. Mild chronic microvascular ischemic changes. Signed by: Dr. Navid Bhatia M.D. on 05/25/2020 8:45 PM Dictated By: NAVID BHATIA MD 44 Transcribed By: NORA on 05/25/202044 COPY TO: XU SHANNON 2 VIEWS 2020-05-25 20:21:00 [facility] 1950 Sex: F [facility] [address] [place] [address] Patient Name: ASHWIN MIN MR #: [id number] : 1950 Age/Sex: 70/F Req #: [id number] Adm Physician: Ordered by: XU SHANNON DO Report #: [id number] Location: ER Room/Bed: Procedure: [id number] DX/CHEST 2 VIEWS Exam Date: 05/25/20 Exam Time: 2006 REPORT STATUS: Signed EXAMINATION: CHEST 2 VIEWS INDICATION: Pain ORDER PLACED BY 20200525 Y COMPARISON: None FINDINGS: TUBES and LINES: None. LUNGS: Normal lung volumes. Lungs are clear. No consolidations. PLEURA: No pleural effusion or pneumothorax. HEART AND MEDIASTINUM: Heart is nonenlarged. Somewhat hyperdense right hilar prominence may relate to calcified right hilar lymph nodes or vessels on end. IMPRESSION: 1. No pneumonia or edema. 2. Indeterminate right hilar prominence which is somewhat hyperdense, may relate to lymph nodes or vessels on end. No comparisons available to determine stability. Consider comparison with outside imaging to determine stability versus nonemergent outpatient CT chest with contrast. Signed by: Justino Man MD on 05/25/2020 8:48 PM Dictated By: JUSTINO MAN MD 47 Transcribed By: NORA on 05/25/202047 COPY TO: XU SHANNON DO ANEMIA STUDY 2017-02-03 20:45:00 78.7 [facility] ANEMIA STUDY 2017-02-03 20:45:00 326 [facility] CHEM PANEL 2017-02-03 20:38:00 0.6 [facility] [place] CHEM PANEL 2017-02-03 08:39:00 3.3 [facility] [place] CHEM PANEL 2017-02-03 08:39:00 72 [facility] CHEM PANEL 2017-02-03 08:39:00 8.6 [facility] [place] CHEM PANEL 2017-02-03 08:39:00 26 [facility] [place] CHEM PANEL 2017-02-03 08:39:00 0.84 [facility] CHEM PANEL 2017-02-03 08:39:00 141 [facility] CHEM PANEL 2017-02-03 08:39:00 106 [facility] CHEM PANEL 2017-02-03 08:39:00 3.9 [facility] CHEM PANEL 2017-02-03 08:39:00 104 [facility] CHEM PANEL 2017-02-03 08:39:00 19 [facility] [place] CHEM PANEL 2017-02-03 08:39:00 12.9 [facility] CHEM PANEL 2017-02-03 08:39:00 2.2 [facility] HEMATOLOGY 2017-02-03 08:39:00 5.6 [facility] [place] HEMATOLOGY 2017-02-03 08:39:00 89.6 [facility] [place] HEMATOLOGY 2017-02-03 08:39:00 3.85 [facility] [place] HEMATOLOGY 2017-02-03 08:39:00 14.8 [facility] HEMATOLOGY 2017-02-03 08:39:00 243 [facility] HEMATOLOGY 2017-02-03 08:39:00 Test Item MCH (test code = MCH) 30.6 pg 27.0-31.0 [facility] QzlxcfoBTSUQPMYYQ3349-79-03 08:39:0034.1[facility]annHEMATOLOGY 2017-02-03 08:39:008.3[facility] WkpjwdyBFRGPOJCAZ1070-97-74 08:39:0011.8[facility] GaubjtlRNFYFIEZJC3583-25-60 08:39:0034.5[facility] TshpaffTLAZFFFQBS5129-98-94 08:39:003.8[facility] RawbzghEJIKXEJOHS1521-69-50 08:39:001.2[facility] DZWOLCMLWW6761-57-48 08:39:000.5[facility] TpauqldTJFYSNLYOS9976-92-23 08:39:000.2 [facility] AfibzpiRMFRSFJYMI8001-14-11 08:39:000.6[facility]annHEMATOLOGY 2017-02-03 08:39:009.3[facility] TimdgdoFYURYXBBTB0103-94-29 08:39:0068.1[facility] DfnqfcqRUUKBKVNYW1718-24-40 08:39:0021.8[facility] TtkxxvdQVSYQN5819-07-08 08:39:002.26[facility] GwjknzhEHKSTB3171-44-45 08:39:0060[facility] HermannLIPIDS 2017-02-03 08:39:0058[facility] VegaxtwTYWYVX2346-62-73 08:39:0013[facility] IHNHWF2823-97-10 08:39:65213Dtespasn AdhsxkyRPEFRQ7236-84-92 08:39:0063[facility] HermannPARATHYROID DNJASIA1202-54-28 08:39:001.07[facility] HermannPARATHYROID GXMYVNT2740-13-22 08:39:001.06[facility] HermannSPECIAL ZOBDJSYET1264-81-06 08:39:005.2[facility] HermannDRUG SQTWHW8329-63-32 23:02:16Negative *NA*(02/02/17 6:02 PM)[facility]annDR[facility] DMUMVF1615-62-24 23:02:16Negative *NA*(02/02/17 6:02 PM)[facility] LSOAZB1119-77-66 23:02:16Negative *NA*(02/02/17 6:02 PM) [facility] WNBFMI7088-57-62 23:02:16Negative *NA*(02/02/17 6:02 PM) [facility] JYTRJK4159-23-42 23:02:16Negative *NA*(02/02/17 6:02 PM) [facility] IMCGHU6449-61-41 23:02:16See Note *NA*(02/02/17 6:02 PM) [facility] CDQIQT0806-57-81 23:02:16Negative *NA*(02/02/17 6:02 PM) [facility] SZUXYS9184-91-99 23:02:16Negative *NA*(02/02/17 6:02 PM) [facility] XGRTD2625-11-59 23:02:16None Seen (02/02/17 6:02 PM) [facility] EKSJI4942-28-22 23:02:16Negative *NA*(02/02/17 6:02 PM) [facility] SEGVT2583-20-98 23:02:16Negative *NA*(02/02/17 6:02 PM) [facility] WCBKY7673-87-84 23:02:16Trace *ABN*(02/02/17 6:02 PM) [facility] YVPKC7283-56-67 23:02:16Negative (02/02/17 6:02 PM) [facility] OLPVQ5086-43-73 23:02:16Negative (02/02/17 6:02 PM) [facility] JCVVP4098-35-81 23:02:160.2[facility] AND XYBJE1098-10-79 23:02:16Negative (02/02/17 6:02 PM)[facility] STOOL 2017-02-02 23:02:16* Test Item Value Reference Range Interpretation Comments UA pH (test code = UA pH) 7.0 1 5.0-8.0 [facility] XLRHR1838-65-71 23:02:16Negative (02/02/17 6:02 PM) [facility] SLJDX5763-70-21 23:02:16* Test Item Value Reference Range Interpretation Comments UA Spec Grav (test code = UA Spec Grav) 1.010 1 [facility] CXOES3856-31-75 23:02:16Yellow *NA*(02/02/17 6:02 PM) [facility] WBXDV5094-55-59 23:02:16Slight Cloudy (02/02/17 6:02 PM) [facility]annCHEM JKSFG4063-91-86 21:46:361.4[facility] HermannCARDIAC ENZYMES 2017-02-02 21:41:00<0.02[facility] HermannCHEM IHLJV4854-62-64 21:41:0054[facility] HermannCHEM IFRFV5959-87-07 21:41:30041Isqxkscu HermannCHEM STNYF2615-86-28 21:41:009.1[facility] HermannCHEM KUXPR1912-40-18 21:41:0025[facility] HermannCHEM YENHU4087-93-96 21:41:003.7[facility] HermannCHEM MYQGK8730-72-01 21:41:08132 [facility]annCHEM NIFBC5052-87-18 21:41:001.07[facility] HermannCHEM PANEL 2017-02-02 21:41:0018[facility] HermannCHEM MGZSI7356-87-04 21:41:35034Tytmjpri HermannCHEM XUVAG2843-70-09 21:41:0075[facility] HermannCHEM GYIDU9584-95-59 21:41:000.8[facility] HermannCHEM UPTVP9247-79-74 21:41:004.3[facility] HermannCHEM OVRDQ4426-71-76 21:41:0024[facility] HermannCHEM YFPZS6569-15-75 21:41:0025 [facility]annCHEM RXSDW9537-49-19 21:41:007.5[facility] HermannCHEM PANEL 2017-02-02 21:41:0017[facility] HermannCHEM XRFPQ8163-98-27 21:41:0012.7[facility] HermannCHEM JHFWY1987-56-86 21:41:003.2[facility]annCHEM VVPTG4058-80-64 21:41:001.3[facility] ZyrtolxRCNZSSUHRD8513-60-38 21:41:00* Test Item Value Reference Range Interpretation Comments PTT (test code = PTT) 26.1 s 22.9-35.8 [facility] XcncimbZCBVRIMPZN9348-13-71 21:41:00* Test Item Value Reference Range Interpretation Comments PT (test code = PT) 13.0 s 12.0-14.7 [facility] ChymuyiKVFZRDZHRD2721-39-56 21:41:000.96[facility] HermannHEMATOLOGY 2017-02-02 21:41:008.2[facility] TdfrsdwGSBQTMWRMK3139-70-92 21:41:09199Uuhnnday XkbybapFLAENKYFUB5704-03-93 21:41:0014.8[facility] LbxwomqASSCAROHUA1462-81-01 21:41:0033.9[facility] MeacluwVIGYHEIDTY4729-63-73 21:41:00* Test Item Value Reference Range Interpretation Comments MCH (test code = MCH) 30.1 pg 27.0-31.0 [facility] CjgcrkdJMYWHLZOML8702-61-36 21:41:0012.5[facility] HermannHEMATOLOGY 2017-02-02 21:41:0037.0[facility] SasdwjqHIXVNSSWIM1110-72-84 21:41:0088.8[facility] VbpgvjeIFDIMVZTPN4630-56-64 21:41:005.6[facility] TspkneaQAJJQIYVKR8806-83-09 21:41:004.16[facility] DqqplohMKAUXCVAKO5893-33-36 21:41:000.4[facility] HXUTSKGBRM5550-00-60 21:41:004.0[facility] XxqhupqQWOMARKBOH3816-87-06 21:41:001.1 [facility] IdzqzovNETJJDYKAR6249-40-40 21:41:007.8[facility] HermannHEMATOLOGY 2017-02-02 21:41:002.1[facility] DkelaejPLOETVRSVV6937-52-13 21:41:000.2[facility] PhhedtdLNDEHICLMI1017-28-91 21:41:0070.5[facility] JijckrcPZSPTRPTCP3036-61-46 21:41:0019.4[facility] NdwfbenPBRDESSNUE9430-26-80 21:41:000.1[facility] [place]
[2020-05-25] MEDS ORDERED: ASPIRIN 81 MG CHEW TAB PO ONE (23:15)
[2020-05-25] MEDS ORDERED: ONDANSETRON HCL INJ 2MG/ML 2ML 2 MG/ML VIAL IV PRN (23:15)
[2020-05-25] MEDS ORDERED: MORPHINE SULFATE INJ 4 MG/ML INJ 1ML IV PRN (23:15)
--- OUTSIDE RECORDS SUMMARY | 2020-05-25 23:37 | XMS REPORT | Continuity of Care Document ---
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 Active 02/19/2017 [facility] AMS Active 0 02/02/2017 [facility] AMNESIA, GLOBAL TRANSIENT Acti ve 02/02/2017 [facility] Gastroesophageal reflux disease (disorder) Resolved Problem 02/27/2017 [facility] Hyperlipidemia (disorder) Reso lved Problem [facility] Hypertensive disorder, systemic arterial (disorder) Resolved Problem 02/27/2017 [facility] Hyperthyroidism (disorder) Res olved Problem [facility] Arthritis (disorder) Resolved Problem 02/27/2017 left hip and spine [facility] Localized osteoarthritis of knees, bilateral Active Problem [...] Shoulder pain, right Active Diagnosis 02/27/2020 Armen Pcikett TRANSIENT GLOBAL AMNESIA Active [facility] 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 [facility] Medications Medication Details Route Status Patient Instructions Ordering Provider Order Date Source Medrol Dose Malik as directed Orally Active 4mg Orally once a day [place] 05/10/2020 Armen Pickett Klor-Con 1 packet with food Orally Active 20 MEQ Orally Once a day [place] 03/06/2020 Armen Pickett Vitamin D (Ergocalciferol) 1 c apsule Orally Active 1.25 MG (25395 UT) Orally once a week [place] 10/18/2019 Armen Pickett Vitamin D (Ergocalciferol) 1 c apsule Orally Active 1.25 MG (12915 UT) Orally once a week [facility] 07/26/2019 Armen Pickett Alendronate Sodium TAKE 1 [...] Notes: (Same as: Yuliya west) Inactive 02/04/2017 [facility] Pravastatin 80 mg, Route: PO, Drug form: TAB, Daily, Dosing Weight 90.909, kg, Start date: 02/03/17 9:00:00 CDT, Duration: 30 day, Stop date: 03/04/17 9:00:00 CDT No Longer Active 02/03/2017 [facility] nter Hydrochlorothiazide 12.5 MG / Lisinopril 20 MG Oral Tablet 1 tab, Route: PO, Drug Form: TAB, Dosing Weight 90.909, kg, Daily, Start date: 02/03/17 9:00:00 CDT, Duration: 30 day, Stop date: 03/04/17 9:00:00 CDT Inactive 02/03/2017 [facility] Folic Acid Notes: (Same as: Fo lvite) Inactive 02/03/2017 [facility] Aspirin 325 MG Oral Tablet Not es: Take with food. Inactive 02/03/2017 [facility] Hydrochlorothiazide 25 mg Hydr ochlorothiazide 25 mg, 12.5 mg, 0.5 tab, Drug form: MISC, Route: PO, Daily, 02/03/17 9:00:00 CDT, Duration: 30 day, Stop date: 03/04/17 9:00:00 CDT Inactive 02/03/2017 [facility] nter lisinopril Notes: (Same as: Pr inivil, Zestril) Inactive 02/03/2017 [facility] Streptococcus pneumoniae serotype 1 caps ular antigen diphtheria [id number] protein conjugate vaccine / Streptococcus pneumoniae serotype 14 capsular antigen diphtheria [id number] protein conjugate vaccine / Streptococcus pneumoniae serotype 18C capsular antigen d Notes: Shake well prior to use (Same as: Prevnar 13) Inactive 02/03/2017 [facility] Docusate Sodium 50 MG / sennosides, NURSING HOME 8.6 MG Oral Tablet Notes: (Same as Senokot-S) Equiv. to Rosalba-Colace. Inactive 02/03/2017 [facility] heparin Notes: porcine heparin Inactive 02/03/2017 [facility] Versed 1 mg, Route: IVP, PRN, Dosing Weight 90.909, kg, PRN Anxiety, Start date: 02/02/17 23:57:00 CDT, Duration: 30 day, Stop date: 03/04/17 23:56:00 CDT Inactive 02/03/2017 [facility] Ativan 1 mg, Route: IV, ONCE, Dosing Weight 90.909, kg, PRN Agitation, Start date: 02/02/17 23:33:00 CDT Inactive 02/03/2017 [facility] methotrexate 10 mg oral tablet 10 mg = 1 tab, PO, Q7D, 0 Refill(s) Active 02/03/2017 [facility] Aspirin 325 MG Oral Tablet 325 mg = 1 tab, PO, Daily, 0 Refill(s) Active 02/03/2017 [facility] Alendronic acid 40 MG Oral Tablet 40 mg = 1 tab, PO, Q7D, 0 Refill(s) Active 02/03/2017 [facility] Folic Acid 1 mg, Daily, 0 Refi ll(s) Active 02/03/2017 [facility] pravastatin 80 mg oral tablet 80 mg = 1 tab, PO, Daily, 0 Refill(s) Active 02/03/2017 [facility] Hydrochlorothiazide 12.5 MG / Lisinopril 20 MG Oral Tablet 1 tab, PO, Daily, 0 Refill(s) Active 02/03/2017 [facility] nter ketOROLAC 15 mg/mL injectable solution 15 mg, Route: IVP, Drug form: INJ, ONCE, Dosing Weight 72.727, kg, Priority: STAT, Start date: 02/02/17 18:18:00 CDT, Stop date: 02/02/17 18:18:00 CDT Inactive 02/02/2017 [facility] Compazine 10 mg, Route: IV, ON CE, Dosing Weight 72.727, kg, Start date: 02/02/17 18:17:00 CDT, Stop date: 02/02/17 18:17:00 CDT Inactive 02/02/2017 [facility] Pravastatin Sodium 1 tablet Orally Active 80 [...] Active 20-12.5 MG Orally Once a day [facility] Armen Pickett Pravastatin Sodium 1 tablet Orally Active 80 MG Orally Once a day [facility] Armen Pickett Otezla 1 tablet Orally Active [...] Armen Pickett PredniSONE TAKE 1 TABLET BY [facility] EVERY DAY NA Active 5 MG Garcia Cristian Pickett Allergies, Adverse Reactions, Alerts Substance Category Reaction Severity Reaction type Status Date Reported Comments Source Synvisc One Adverse Reaction pain, swelling Adverse Reactio n Active 02/16/2020 Armen Pickett Immunizations Immunization Date Given Site Status Last Updated Comments Source Flu Vaccine 04/12/2017 completed Armen Pickett pneumococcal 13-valent vaccine 02/03/2017 Not Given [facility] Results Order Name Results Value Reference Range Date Interpretation Comments Source ANEMIA STUDY Folate Lvl 78.7 >=3.0 ng/mL 02/03/2017 [facility] ANEMIA STUDY Vitamin B12 Lvl 326 254 - 1320 02/03/2017 [facility] CHEM PANEL Lactic Acid Lvl 0.6 0.5 - 2.2 02/03/2017 [facility] CHEM PANEL Phosphorus 3.3 2.5 - 4.5 02/03/2017 [facility] CHEM PANEL eGFR 72 02/03/2017 Result Comment: [...] should be multiplied by the estimated BMI. [facility] CHEM PANEL Calcium Lvl 8.6 8.5 - 10.5 02/03/2017 [facility] CHEM PANEL CO2 26 24 - 32 02/03/2017 [facility] CHEM PANEL Creatinine Lvl 0.84 0.50 - 1.40 02/03/2017 [facility] CHEM PANEL Sodium Lvl 141 135 - 145 02/03/2017 [facility] CHEM PANEL Chloride Lvl 106 95 - 109 02/03/2017 [facility] CHEM PANEL Potassium Lvl 3.9 3.5 - 5.1 02/03/2017 [facility] CHEM PANEL Glucose Lvl 104 70 - 99 02/03/2017 [facility] CHEM PANEL BUN 19 7 - 22 02/03/2017 [facility] CHEM PANEL AGAP 12.9 10.0 - 20.0 02/03/2017 [facility] CHEM PANEL Magnesium Lvl 2.2 1.8 - 2.4 02/03/2017 [facility] HEMATOLOGY WBC 5.6 3.7 - 10.4 02/03/2017 [facility] HEMATOLOGY MCV 89.6 80.0 - 98.0 02/03/2017 [facility] HEMATOLOGY RBC 3.85 4.20 - 5.40 02/03/2017 [facility] HEMATOLOGY RDW 14.8 11.5 - 14.5 02/03/2017 [facility] HEMATOLOGY Platelet 243 133 - 450 02/03/2017 [facility] HEMATOLOGY MCH 30.6 27.0 - 31.0 02/03/2017 [facility] HEMATOLOGY MCHC 34.1 32.0 - 36.0 02/03/2017 [facility] HEMATOLOGY MPV 8.3 7.4 - 10.4 02/03/2017 [facility] HEMATOLOGY Hgb 11.8 12.0 - 16.0 02/03/2017 [facility] HEMATOLOGY Hct 34.5 36.0 - 48.0 02/03/2017 [facility] HEMATOLOGY Segs-Bands # 3.8 1.5 - 8.1 02/03/2017 [facility] HEMATOLOGY Lymphocytes # 1.2 1.0 - 5.5 02/03/2017 [facility] HEMATOLOGY Monocytes # 0.5 0.0 - 0.8 02/03/2017 [facility] HEMATOLOGY Basophils 0.2 0.0 - 1.0 02/03/2017 [facility] HEMATOLOGY Eosinophils 0.6 0.0 - 4.0 02/03/2017 [facility] HEMATOLOGY Monocytes 9.3 2.0 - 12.0 02/03/2017 [facility] HEMATOLOGY Segs 68.1 45.0 - 75.0 02/03/2017 [facility] HEMATOLOGY Lymphocytes 21.8 20.0 - 40.0 02/03/2017 [facility] LIPIDS CHD Risk 2.26 3.90 - 5.80 02/03/2017 [facility] LIPIDS LDL (Calculated) 60 <=99 mg/dL 02/03/2017 [facility] LIPIDS HDL 58 >=61 mg/dL 02/03/2017 [facility] LIPIDS VLDL 13 02/03/2017 [facility] LIPIDS Chol 131 <=199 mg/dL 02/03/2017 [facility] LIPIDS Trig 63 <=149 mg/dL 02/03/2017 [facility] PARATHYROID PROFILE Ca Norm WB 1.07 1.05 - 1.25 02/03/2017 [facility] PARATHYROID PROFILE Ca Ion WB 1.06 1.05 - 1.25 02/03/2017 [facility] SPECIAL CHEMISTRY Hgb A1C 5.2 <=5.6 % 02/03/2017 [facility] DRUG SCREEN U Amph Scr Nega tive *NA* (02/02/17 6:02 PM) Negative 02/02/2017 [facility] DRUG SCREEN U Dolly Scr Nega tive *NA* (02/02/17 6:02 PM) Negative 02/02/2017 [facility] DRUG SCREEN U Benzodia Scr Nega tive *NA* (02/02/17 6:02 PM) Negative 02/02/2017 [facility] DRUG SCREEN U Cannab Scr Nega tive *NA* (02/02/17 6:02 PM) Negative 02/02/2017 [facility] DRUG SCREEN U Cocaine Scr Nega tive *NA* (02/02/17 6:02 PM) Negative 02/02/2017 [facility] DRUG SCREEN UDS Note See Note *NA* (02/02/17 6:02 PM) 02/02/2017 [facility] DRUG SCREEN U Opiate Scr Nega tive *NA* (02/02/17 6:02 PM) Negative 02/02/2017 [facility] DRUG SCREEN U Phencyc Scr Nega tive *NA* (02/02/17 6:02 PM) Negative 02/02/2017 [facility] URINE AND STOOL UA WBC 0-2 /HPF None Seen /HPF 02/02/2017 [facility] URINE AND STOOL UA Bacteria Few /HPF None Seen /HPF 02/02/2017 [facility] URINE AND STOOL UA RBC None Seen (02/02/17 6:02 PM) 0 - 2 02/02/2017 [facility] URINE AND STOOL UA Sq Epi Few /LPF Few /LPF 02/02/2017 [facility] URINE AND STOOL UA Ketones Negative *NA* (02/02/17 6:02 PM) Negative 02/02/2017 [facility] URINE AND STOOL UA Bili Negative *NA* (02/02/17 6:02 PM) Negative 02/02/2017 [facility] URINE AND STOOL UA Leuk Est Trace *ABN* (02/02/17 6:02 PM) Negative 02/02/2017 [facility] URINE AND STOOL UA Blood Negative (02/02/17 6:02 PM) Negative 02/02/2017 [facility] URINE AND STOOL UA Nitrite Negative (02/02/17 6:02 PM) Negative 02/02/2017 [facility] URINE AND STOOL UA Urobilinogen 0.2 0.1 - 1.0 02/02/2017 [facility] URINE AND STOOL UA Protein Negative (02/02/17 6:02 PM) Negative 02/02/2017 [facility] URINE AND STOOL UA pH 7.0 5.0 - 8.0 02/02/2017 [facility] URINE AND STOOL UA Glucose Negative (02/02/17 6:02 PM) Negative 02/02/2017 [facility] URINE AND STOOL UA Spec Grav 1.010 <=1.030 02/02/2017 [facility] URINE AND STOOL UA Color Yellow *NA* (02/02/17 6:02 PM) Yellow 02/02/2017 [facility] URINE AND STOOL UA Turbidity Slight Cloudy (02/02/17 6:02 PM) Clear 02/02/2017 [facility] CHEM PANEL Lactic Acid WB 1.4 0.5 - 2.2 02/02/2017 [facility] CARDIAC ENZYMES Troponin-I <0.02 0.00 - 0.40 02/02/2017 [facility] CHEM PANEL eGFR 54 02/02/2017 Result Comment: [...] should be multiplied by the estimated BMI. [facility] CHEM PANEL Chloride Lvl 105 95 - 109 02/02/2017 [facility] CHEM PANEL Calcium Lvl 9.1 8.5 - 10.5 02/02/2017 [facility] CHEM PANEL CO2 25 24 - 32 02/02/2017 [facility] CHEM PANEL Potassium Lvl 3.7 3.5 - 5.1 02/02/2017 [facility] CHEM PANEL Sodium Lvl 139 135 - 145 02/02/2017 [facility] CHEM PANEL Creatinine Lvl 1.07 0.50 - 1.40 02/02/2017 [facility] CHEM PANEL BUN 18 7 - 22 02/02/2017 [facility] CHEM PANEL Glucose Lvl 111 70 - 99 02/02/2017 [facility] CHEM PANEL Alk Phos 75 39 - 136 02/02/2017 [facility] CHEM PANEL Bili Total 0.8 0.2 - 1.3 02/02/2017 [facility] CHEM PANEL Albumin Lvl 4.3 3.5 - 5.0 02/02/2017 [facility] CHEM PANEL ALT 24 0 - 65 02/02/2017 [facility] CHEM PANEL AST 25 0 - 37 02/02/2017 [facility] CHEM PANEL Total Protein 7.5 6.4 - 8.4 02/02/2017 [facility] CHEM PANEL B/C Ratio 17 6 - 25 02/02/2017 [facility] CHEM PANEL AGAP 12.7 10.0 - 20.0 02/02/2017 [facility] CHEM PANEL Globulin 3.2 2.7 - 4.2 02/02/2017 [facility] CHEM PANEL A/G Ratio 1.3 0.7 - 1.6 02/02/2017 [facility] HEMATOLOGY PTT 26.1 22.9 - 35.8 02/02/2017 [facility] HEMATOLOGY PT 13.0 12.0 - 14.7 02/02/2017 [facility] HEMATOLOGY INR 0.96 0.85 - 1.17 02/02/2017 [facility] HEMATOLOGY MPV 8.2 7.4 - 10.4 02/02/2017 [facility] HEMATOLOGY Platelet 278 133 - 450 02/02/2017 [facility] HEMATOLOGY RDW 14.8 11.5 - 14.5 02/02/2017 [facility] HEMATOLOGY MCHC 33.9 32.0 - 36.0 02/02/2017 [facility] HEMATOLOGY MCH 30.1 27.0 - 31.0 02/02/2017 [facility] HEMATOLOGY Hgb 12.5 12.0 - 16.0 02/02/2017 [facility] HEMATOLOGY Hct 37.0 36.0 - 48.0 02/02/2017 [facility] HEMATOLOGY MCV 88.8 80.0 - 98.0 02/02/2017 [facility] HEMATOLOGY WBC 5.6 3.7 - 10.4 02/02/2017 [facility] HEMATOLOGY RBC 4.16 4.20 - 5.40 02/02/2017 [facility] HEMATOLOGY Monocytes # 0.4 0.0 - 0.8 02/02/2017 [facility] HEMATOLOGY Segs-Bands # 4.0 1.5 - 8.1 02/02/2017 [facility] HEMATOLOGY Lymphocytes # 1.1 1.0 - 5.5 02/02/2017 [facility] HEMATOLOGY Monocytes 7.8 2.0 - 12.0 02/02/2017 [facility] HEMATOLOGY Eosinophils 2.1 0.0 - 4.0 02/02/2017 [facility] HEMATOLOGY Basophils 0.2 0.0 - 1.0 02/02/2017 [facility] HEMATOLOGY Segs 70.5 45.0 - 75.0 02/02/2017 [facility] HEMATOLOGY Lymphocytes 19.4 20.0 - 40.0 02/02/2017 [facility] HEMATOLOGY Eosinophils # 0.1 0.0 - 0.5 02/02/2017 [facility] Pathology Reports No Data Provided for This Section Diagnostic Reports Report Value Date Source Cardiac SPECT multi studies NM Nuclear gated myocardial perfusion scan performed as per protocol at the nuclear medicine lab at [facility]. Lexiscan injected 0.4 mg intravenously as a stress agent. Cardiolite injected 11 mCi for resting protocol 30 mCi for stress protocol. Impression. Mild mild anterior wall ischemia noted. Left ventricular ejection fraction 60%, no evidence of wall motion abnormality noted. Abnormal nuclear stress test with mild anterior wall ischemia. 02/24/2017 [facility] Neck wo contrast MRA MRI OF TH E BRAIN MRA OF THE BRAIN MRA OF THE NECK DATE: COMPARISON: HISTORY: TECHNIQUE: Multiplanar MR imaging was performed utilizing T1, T2, diffusion, and susceptibility weighting. MR angiography of the intracranial circulation was performed utilizing 3-D lssz-vo-isbefs technique. Maximum intensity projection, MIP reformatted images were provided. Source images were also reviewed. MR angiography was performed from the upper thorax through the skull base utilizing 2-D iiim-af-peuvnv technique. 3-D rtjd-vt-zxvbwz technique through the carotid bifurcations was also [...] major vascular abnormality. [place] SECTION: Neuro 02/03/2017 [facility] Brain wo contrast MRI MRI OF T HE BRAIN MRA OF THE BRAIN MRA OF THE NECK DATE: COMPARISON: HISTORY: TECHNIQUE: Multiplanar MR imaging was performed utilizing T1, T2, diffusion, and susceptibility weighting. MR angiography of the intracranial circulation was performed utilizing 3-D nkin-kn-smyfcf technique. Maximum intensity projection, MIP reformatted images were provided. Source images were also reviewed. MR angiography was performed from the upper thorax through the skull base utilizing 2-D xqfw-fz-lenhhz technique. 3-D yzro-vr-vhjyto technique through the carotid bifurcations was also [...] major vascular abnormality. [place] SECTION: Neuro 02/03/2017 [facility] Brain wo contrast MRA MRI OF T HE BRAIN MRA OF THE BRAIN MRA OF THE NECK DATE: COMPARISON: HISTORY: TECHNIQUE: Multiplanar MR imaging was performed utilizing T1, T2, diffusion, and susceptibility weighting. MR angiography of the intracranial circulation was performed utilizing 3-D uxgb-kg-fyruwd technique. Maximum intensity projection, MIP reformatted images were provided. Source images were also reviewed. MR angiography was performed from the upper thorax through the skull base utilizing 2-D uaib-jc-qdtmyc technique. 3-D dhsn-xw-ismays technique through the carotid bifurcations was also [...] major vascular abnormality. [place] SECTION: Neuro 02/03/2017 [facility] Brain wo contrast CT EXAM: CT BRAIN [...] acute intracranial abnormality. [place] SECTION: Neuro 02/02/2017 [facility] Chest 1view DX EXAM: XR CHEST 1 [...] identified. IMPRESSION: No acute radiographic abnormality. 02/02/2017 [facility] Consultation Notes No Data Provided for This Section Discharge Summaries No Data Provided for This Section History and Physicals No Data Provided for This Section Vital Signs Vital Sign Value Date Comments Source Weight 190.1 02/20/2020 [facility] Height 62 0 02/20/2020 [facility] Temperature Oral (F) 97.3 F 02/20/2020 Armen Pickett Heart Rate 66 02/20/2020 Amren Pickett Diastolic (mm Hg) 60 02/20/2020 Armen [...] 06/16/2018 Armen Pickett Height 61 1 08/17/2017 Ramen Pickett Temperature Oral (F) 97.0 F 06/16/2018 [...] Pickett Temperature Oral (F) 98.1 F 02/03/2017 [facility] Systolic (mm Hg) 124 02/03/2017 [facility] Diastolic (mm Hg) 75 02/03/2017 [facility] Heart Rate 64 02/03/2017 [facility] Respitory Rate 18 02/03/2017 [facility] Systolic (mm Hg) 139 02/03/2017 [facility] Diastolic (mm Hg) 77 02/03/2017 [facility] Respitory Rate 18 02/03/2017 [facility] Temperature Oral (F) 96.8 F 02/03/2017 [facility] Heart Rate 72 02/03/2017 [facility] Heart Rate 61 02/03/2017 [facility] Temperature Oral (F) 96.9 F 02/03/2017 [facility] Respitory Rate 18 02/03/2017 [facility] Systolic (mm Hg) 101 02/03/2017 [facility] Diastolic (mm Hg) 58 02/03/2017 [facility] Height 157.48 cm 02/03/2017 [facility] Weight 90.909 02/03/2017 [facility] BMI Calculated 36.66 02/03/2017 [facility] Weight 72.727 02/02/2017 [facility] BMI Calculated 29.33 02/02/2017 [facility] Height 157.48 cm 02/02/2017 [facility] Encounters Location Location Details Encounter Type Encounter Number Reason For Visit Attending Provider ADM Date DC Date Status Source [facility] Observation [id number] Daniel Smithsey 02/02/2017 02/04/2017 [facility] Outpatient [id number] Refugio SolizRayna 02/24/2017 02/25/2017 [facility] Procedures Procedure Code Date Perfomer Comments Source Hysterectomy<sup>1</sup> [id number] uterus CA [facility] Assessment and Plan Assessment and Plan Date [...] Per the patient's , she was at [facility] with two of her great-granchildren [...] that has happened since she arrived to [facility] ER slightly after 4pm. Once she arrived at [facility], she was noted to be back near baseline, with only minor recall difficulties when asked to remember three words. She was alert and oriented x3 and answered questions appropriately. She does report a current left-sided headache over her anglican region which she describes as pressure-like in nature. She is unsure of exactly when the headache began, but denies any associated photophobia, phonophobia, nausea, or vomiting. 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 Once she arrived at [facility], she was noted to be back near baseline, with only minor recall difficulties when asked to remember three words. She was alert and oriented x3 and answered questions appropriately. She does report a current left-sided headache over her anglican region which she describes as pressure-like in nature. She is unsure of exactly when the headache began, but denies any associated photophobia, phonophobia, nausea, or vomiting. She reports a history of migraine headaches typically located over her left anglican region, but states they are infrequent (last [...] qhs at home (denies prior stroke or CT and unsure why she is on 325mg ASA as opposed to 81mg) -Continue home doses of ASA and pravasta tin -Hgb A1c and lipid panel pending # GI -continue home pantoprazole Diet: Adult Regular GI prophylaxis: home medication of pantoprazole Adkins present: No Bowel prophylaxis: Docusate-Senna DVT Prophylaxis: VERNON/SCD/Hep sq Code status: Full code Level of care: Observation Discharge Disposition: Likely home pending unc healther work-up [facility]10th floor [facility], call [phone] for appointment) Can follow-up with Chloé Cruz in [facility] resident clinic if ok with primary team and patient The case was discussed with the customer service professional General Neurology attending Dr Begum. Patient and family members were updated on the same and all questions answered. [place] [phone] (general neurology phone) Chloé Cruz PGY-2 [facility] Neurology Neurology staff Teaching physician statement I reviewed the resident's note dated 02/02 I saw and examined this patient. She is now awake with limited recall for the events of yesterday. I discussed the case with Dr. Cruz I personally viewed laboratory studies and imaging. I agree with the plan. Diagnosis: transient global amnesia Level of service: [id number] Minor Dunham MD [id number] Professor of Neurology 02/04/2017 [facility] Plan of Care No Data Provided for This Section Social History Social History Date Source Social History TypeResponse Substance Abuse Use: None. Alcohol Never Smoking Status Never smoker; Exposure to Tobacco Smoke None; Cigarette Smoking Last 365 Days No; Reg Smoking Cessation Counseling No 02/03/2017 [facility] Social History TypeResponse Substance Abuse Use: None. Alcohol Never Smoking Status Never smoker; Exposure to Tobacco Smoke None; Cigarette Smoking Last 365 Days No; Reg Smoking Cessation Counseling No 02/03/2017 [facility] Family History No Data Provided for This Section Advance Directives No Data Provided for This Section Functional Status No Data Provided for This Section
--- OUTSIDE RECORDS SUMMARY | 2020-05-25 23:37 | XMS REPORT | Clinical Summary ---
Author Author [facility] Organization [facility] Address Unknown Phone Unavailable Care Team Providers Care Senior Sales Operations Analyst Name Role Phone Asked, No Pcp PCP [...] APPE NDECTOMY, LAPAROSCOPIC; Surgeon: Irasema Diamond; Location: [facility]; Service: General; Laterality: Right; Medical History Medical [...] Plan / Dates Group Medicare MEDICARE MEDICARE [id number] 2017-P [place], PART A AND resent [place] B Commercial AARP AARP [id number] 2017-P SUPPLEMENT resent Advance Directives For more information, please contact: [phone] Patient Pediatric Speech Therapist Explanation Type Date Recorded Advance Directives, Living Will and Medical Power of Cns
--- OUTSIDE RECORDS SUMMARY | 2020-05-25 23:38 | XMS REPORT | Continuity of Care Document ---
Author Author [facility] t Organization [facility] Address [address] [place] [address] Phone Unavailable Care Team Providers Care Service Desk Associate Name Role Phone MD REFUGIO WAY PCP XU SHANNON Attphys Unavailable Sergey Way Attphys Anshu Dunham Attphys Anshu Dunham Admphys Payers Payer Name Policy Type Policy Number Effective Date Expiration Date S elizabeth [facility] [id number] 2015 00:00:00 [facility] Medicare A & B [id number] 2014 00:00:00 [facility] Problems Condition Name Condition Details Condition Category Status Onset Date Resolution Date Last Treatment Date Treating Clinician Comments Source Ruptured appendix Ruptured appendix Disease Active 2017-12-12 00:00:00 Kolton Martino 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 02/19/2017 [facility] Active 2017-02-19 00:00:00 2017-02-24 09:42:00 Oliver Figueroa AMS AMS Active 02/02/2017 [facility] Diagnosis Active 2017-02-02 00:00:00 2017-02-02 21:18:00 Oliver Figueroa AMNESIA, GLOBAL TRANSIENT AMNE TRINA, GLOBAL TRANSIENT Active 02/02/2017 [facility] Diagnosis Active 2017-02-02 00 :00:00 2017-02-03 15:05:00 Oliver Figueroa Sciatica Problem Active [facility] Allergic reaction Problem Active [facility] Gastroesophageal reflux disease (disorder) Gastroesophageal reflux disease (disorder) Resolved Problem 02/27/2017 [facility] Problem Resolved 2017-02-27 01:42:53 Oliver Figueroa Hyperlipidemia (disorder) Hype rlipidemia (disorder) Resolved Problem 02/27/2017 [facility] Problem Resolved 2017-02-27 01:42:53 [facility] Hypertensive disorder, systemic arterial (disorder) Hypertensive disorder, systemic arterial (disorder) Resolved Problem 02/27/2017 [facility] Problem Resolved 2017-02-27 01:42:53 Oliver Figueroa Hyperthyroidism (disorder) Hyp erthyroidism (disorder) Resolved Problem 02/27/2017 [facility] Problem Resolved 2017-02-27 01:42:53 [facility] Arthritis (disorder) Arth ritis (disorder) Resolved Problem 02/27/2017 left hip and spine [facility] Problem Resolved 2017-02-27 01:42:53 [facility] [...] Shou lder pain, right Active Diagnosis 02/27/2020 Armne Pickett Diagnosis Active 2020-02-27 02:45:48 Oliver Figueroa TRANSIENT GLOBAL AMNESIA SHANNON SIENT GLOBAL AMNESIA Active [facility] Diagnosis Active 2017-02-03 15:05:00 Oliver Figueroa ATHSCL HEART DISEASE OF [place] [facility] 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 [facility] Active 2017-02-24 09:42:00 Oliver Figueroa Allergies, Adverse Reactions, Alerts Allergy Name Allergy Type Status Severity Reaction(s) Onset Date Inacti ve Date Treating Clinician Comments Source Synvisc One Synvisc One Active pain, swelling 2020-02-16 00:00:00 Oliver Figueroa Family History Family Member Diagnosis Comments Start Date Stop Date Source Natural father Heart disease [facility] Natural father Hyperlipidemia [facility] Natural father Hypertension [facility] Natural mother Cancer [facility] thodist Natural mother Hyperlipidemia [facility] Natural mother Hypertension [facility] Natural sister Heart disease [facility] Social History Social Habit Start Date Stop Date Quantity Comments Source Sex Assigned At Nina barrientoscatrina Martino Alcohol intake 2017-12-13 00:00:00 2017-12-13 00:00:00 Current non-drinker of alcohol (finding) Kolton Barrientosist Social History 2017-02-03 04:09:40 2017-02-03 04:09:40 Oliver Figueroa Smoking Status Start Date Stop Date Source Never smoker [facility] Medications Ordered Medication Name Filled Medication Name Start Date Stop Da te Current Medication? Ordering Clinician Indication Dosage Frequency Signature (SIG) Comments Components Source Medrol Dose Malik 2020-05-10 00:00:00 Yes Asif Pickett as directed [facility] Diphenhydramine Hcl (Benadryl) 25 Mg CAPSULE Diphenhyd ramine Hcl (Benadryl) 25 Mg CAPSULE 2020-05-05 05:14:00 Yes 50 E very 6 Hours as needed for Itching [facility] Famotidine (Pepcid) 20 Mg TABLET Famotidine (Pepcid) 20 Mg T ABLET 2020-05-05 05:14:00 Yes 20 Every 12 Hours [facility] Cyclobenzaprine Hcl (Flexeril) 5 Mg TABLET Cyclobenzap rine Hcl (Flexeril) 5 Mg TABLET 2020-05-04 04:23:00 Yes 10 Ever y 8 Hours as needed for Moderate Pain (4-6) [facility] Prednisone Prednisone 2020-05-04 04:23:00 Yes 60 Daily as needed for Moderate Pain (4-6) [facility] Klor-Con 2020-03-06 00:00:00 Yes Brad Garcia 1 p acket with food [facility] Pantoprazole Sodium 2020-02-27 02:46:25 Yes Brad Garcia 1 tablet [facility] Levothyroxine Sodium 2020-02-27 02:46:25 Yes Brad Garcia 1 tablet [facility] Alendronate Sodium 2020-02-27 02:46:25 Yes Brad Garcia 1 tablet [facility] Rock Aspirin 2020-02-27 02:46:25 Yes Brad Garcia 1 tablet [facility] Lisinopril-Hydrochlorothiazide 2020-02-27 02:46:25 Yes P edro Garcia 1 tablet [facility] Otezla 2020-02-27 02:46:25 Yes Brad Garcia 1 tab let [facility] Tylenol Arthritis Pain 2020-02-27 02:46:25 Yes Brad Amb marcial 1 tablet as needed [facility] Aspirin 81 2020-02-27 02:46:25 Yes Brad Garcia 1 tablet [facility] Rosuvastatin Calcium 2020-02-27 02:46:25 Yes Brad Garcia 1 tablet [facility] PredniSONE 2020-02-27 02:46:25 Yes Brad Garcia TAKE 1 TABLET BY MOUTH EVERY DAY [facility] Vitamin D (Ergocalciferol) 2019-10-18 00:00:00 Yes Colten Bonilla 1 capsule [facility] Vitamin D (Ergocalciferol) 2019-07-26 00:00:00 Yes Brad Garcia 1 capsule [facility] Pravastatin Sodium 2019-03-29 02:50:45 Yes Wajeeha Juan 1 tablet [facility] Alendronate Sodium 2018-07-14 00:00:00 Yes Wajeeha Yousa f TAKE 1 TABLET BY MOUTH ONCE A WEEK [facility] Methotrexate 2018-06-24 03:46:43 Yes Wajeeha Juan TAKE 5 TABLETS BY MOUTH ONCE EVERY WEEK [facility] Folic Acid 2018-06-24 03:46:43 Yes Wajeeha Juan 1 tablet [facility] Otezla 2018-06-13 00:00:00 Yes Wajeeha Juan 1 t ablet [facility] Methotrexate 2018-06-09 00:00:00 Yes Wajeeha Juan TAKE 5 TABLETS BY MOUTH ONCE EVERY WEEK [facility] methotrexate 2.5 MG tablet 2017-12-14 19:16:30 [...] 4 MG tablet 2017-12-14 19:16:30 Yes 4mg [id number] Take 4 mg by mouth 3 (three) times a day as needed for nausea or vomiting. [facility] dicyclomine (BENTYL) 20 mg tablet 2017-12-14 19:16:30 Yes 20mg Q.25D Take 20 mg by mouth 4 (four) times a day as needed. [facility] folic acid (FOLVITE) 1 MG tablet 2017-12-14 19:16:30 Yes 1mg Q7D Take 1 mg by mouth once a week. [facility] lisinopril (PRINIVIL,ZESTRIL) 20 mg tablet 2017-12-14 19:16:30 Yes 20mg QD Take 20 mg by mouth daily. [facility] hydroCHLOROthiazide (HYDRODIURIL) 12.5 MG tablet 2017-12-14 19:16:30 Yes 12.5mg QD Take 12.5 mg by mouth daily. [facility] pravastatin (PRAVACHOL) 40 MG tablet 2017-12-14 19:16:30 Ye s 80mg QD Take 80 mg by mouth daily. [facility] PredniSONE 2017-11-08 00:00:00 Yes Dianaeha Juan 1 tab prn [facility] PredniSONE 2017-11-08 00:00:00 Yes Dianaeha Juan 1 tab prn [facility] Alendronate Sodium 2017-09-20 00:00:00 Yes Evelyn Morrell f take 1 tablet [facility] Diclofenac Sodium 2017-06-10 00:00:00 Yes Wajeeha Juan 1 application to affected area [facility] Folic Acid 2017-04-20 00:00:00 Yes Dianaeha Juan 1 tablet [facility] Methotrexate 2017-04-20 00:00:00 Yes Dianaeha Juan 3 tabs altogether [facility] Pravastatin Sodium 2017-04-15 02:46:24 Yes Dianaeha Juan 1 tablet [facility] Levothyroxine Sodium 2017-04-15 02:46:24 Yes Jammiea Juan 1 tablet [facility] Lisinopril-Hydrochlorothiazide 2017-04-15 02:46:24 Yes Fernando landa Juan 1 tablet [facility] [place] Aspirin 2017-04-15 02:46:24 Yes Waalejandroeha Juan 1 tablet [facility] Pantoprazole Sodium 2017-04-15 02:46:24 Yes Waalejandrokevina Juan 1 tablet [facility] Alendronate Sodium 2017-04-15 02:46:24 Yes Wajeeha Juan 1 tablet [facility] Pravastatin 2017-02-04 02:00:00 No Notes: ( Same as: Pravachol) [facility] Pravastatin 2017-02-03 14:00:00 No 80 mg, Route: PO, Drug form: TAB, Daily, Dosing Weight 90.909, kg, Start date: 02/03/17 9:00:00 CDT, Duration: 30 day, Stop date: 03/04/17 9:00:00 CDT [facility]al [facility] Hydrochlorothiazide 12.5 MG / Lisinopril 20 MG Oral Tablet 2017-02-03 14:00:00 No 1 tab, Rou te: PO, Drug Form: TAB, Dosing Weight 90.909, kg, Daily, Start date: 02/03/17 9:00:00 CDT, Duration: 30 day, Stop date: 03/04/17 9:00:00 CDT [facility] Folic Acid 2017-02-03 14:00:00 No Notes: (S roel as: Folvite) [facility] Aspirin 325 MG Oral Tablet 2017-02-03 14:00:00 No Notes: Take with food. [facility] Hydrochlorothiazide 25 mg 2017-02-03 14:00:00 No Hydrochlorothiazide 25 mg, 12.5 mg, 0.5 tab, Drug form: MISC, Route: PO, Daily, 02/03/17 9:00:00 CDT, Duration: 30 day, Stop date: 03/04/17 9:00:00 CDT [facility] lisinopril 2017-02-03 14:00:00 No Notes: (Same as: Prinivludwig Zestril) [facility] Streptococcus pneumoniae serotype 1 caps ular antigen diphtheria [id number] protein conjugate vaccine / Streptococcus pneumoniae serotype 14 capsular antigen diphtheria [id number] protein conjugate vaccine / Streptococcus pneumoniae serotype 18C capsular antigen d 2017-02-03 14:00:00 No Notes: Shake well prior to use (Same as: Prevnar 13) [facility] Docusate Sodium 50 MG / sennosides, CORRECTION 8.6 MG Oral Tablet 2017-02-03 14:00:00 No Notes: (Same as Senokot-S) Equ iv. to Rosalba-Colace. [facility] heparin 2017-02-03 05:00:00 No Notes: dylon ne heparin [facility] Versed 2017-02-03 04:57:00 No 1 mg, Route: IVP, PRN, Dosing Weight 90.909, kg, PRN Anxiety, Start date: 02/02/17 23:57:00 CDT, Duration: 30 day, Stop date: 03/04/17 23:56:00 CDT Mem[facility] Figueroa Ativan 2017-02-03 04:33:00 No 1 mg, Route: IV, ONCE, Dosing Weight 90.909, kg, PRN Agitation, Start date: 02/02/17 23:33:00 CDT [facility] methotrexate 10 mg oral tablet 2017-02-03 04:17:00 Yes 10 mg = 1 tab, PO, Q7D, 0 Refill(s) [facility] Aspirin 325 MG Oral Tablet 2017-02-03 04:17:00 Yes 325 mg = 1 tab, PO, Daily, 0 Refill(s) [facility] Alendronic acid 40 MG Oral Tablet 2017-02-03 04:17:00 Yes 40 mg = 1 tab, PO, Q7D, 0 Refill(s) [facility] Folic Acid 2017-02-03 04:17:00 Yes 1 mg, Keila ly, 0 Refill(s) [facility] pravastatin 80 mg oral tablet 2017-02-03 04:17:00 Yes 80 mg = 1 tab, PO, Daily, 0 Refill(s) [facility] Hydrochlorothiazide 12.5 MG / Lisinopril 20 MG Oral Tablet 2017-02-03 04:17:00 Yes 1 tab, PO, Daily, 0 Refill(s) [facility] ketOROLAC 15 mg/mL injectable solution 2017-02-02 23:18:00 No 15 mg, Route: IVP, Drug form: INJ, ONCE, Dosing Weight 72.727, kg, Priority: STAT, Start date: 02/02/17 18:18:00 CDT, Stop date: 02/02/17 18:18:00 CDT [facility] Compazine 2017-02-02 23:17:00 No 10 mg, Route: IV, ONCE, Dosing Weight 72.727, kg, Start date: 02/02/17 18:17:00 CDT, Stop date: 02/02/17 18:17:00 CDT [facility] Vital Signs Vital Name Observation Time Observation Value Comments Source Oxygen saturation by Pulse oximetry 2020-05-05 04:25:00 100 /min [facility] Weight 2020-05-05 04:25:00 190 [lb_av] [facility] BMI (Body Mass Index) 2020-05-05 04:25:00 34.8 kg/m2 [facility] Weight 2020-02-20 15:00:00 [facility] Height 2020-02-20 15:00:00 [facility] Temperature Oral (F) 2020-02-20 15:00:00 97.3 F [facility] Heart Rate 2020-02-20 15:00:00 [facility] Diastolic (mm Hg) 2020-02-20 15:00:00 [facility] Systolic (mm Hg) 2020-02-20 15:00:00 [facility] Weight 2020-02-16 14:45:00 [facility] Height 2020-02-16 14:45:00 [facility] Temperature Oral (F) 2020-02-16 14:45:00 97.0 F [facility] Heart Rate 2020-02-16 14:45:00 [facility] Diastolic (mm Hg) 2020-02-16 14:45:00 [facility] Systolic (mm Hg) 2020-02-16 14:45:00 [facility] Weight 2019-10-26 13:15:00 [facility] Height 2019-10-26 13:15:00 [facility] Temperature Oral (F) 2019-10-26 13:15:00 97.4 F [facility] Heart Rate 2019-10-26 13:15:00 [facility] Diastolic (mm Hg) 2019-10-26 13:15:00 [facility] Systolic (mm Hg) 2019-10-26 13:15:00 [facility] Weight 2019-07-25 14:45:00 [facility] Height 2019-07-25 14:45:00 [facility] Temperature Oral (F) 2019-07-25 14:45:00 98.2 F [facility] Heart Rate 2019-07-25 14:45:00 [facility] Diastolic (mm Hg) 2019-07-25 14:45:00 [facility] Systolic (mm Hg) 2019-07-25 14:45:00 [facility] Weight 2019-02-01 16:45:00 [facility] Height 2019-02-01 16:45:00 [facility] Temperature Oral (F) 2019-02-01 16:45:00 97.8 F [facility] Heart Rate 2019-02-01 16:45:00 [facility] Diastolic (mm Hg) 2019-02-01 16:45:00 [facility] Systolic (mm Hg) 2019-02-01 16:45:00 [facility] Weight 2019-01-24 16:45:00 [facility] Height 2019-01-24 16:45:00 [facility] Temperature Oral (F) 2019-01-24 16:45:00 97.9 F [facility] Heart Rate 2019-01-24 16:45:00 [facility] Diastolic (mm Hg) 2019-01-24 16:45:00 [facility] Systolic (mm Hg) 2019-01-24 16:45:00 [facility] Weight 2018-09-20 15:30:00 [facility] Height 2018-09-20 15:30:00 [facility] Temperature Oral (F) 2018-09-20 15:30:00 98.0 F [facility] Heart Rate 2018-09-20 15:30:00 [facility] Diastolic (mm Hg) 2018-09-20 15:30:00 [facility] Systolic (mm Hg) 2018-09-20 15:30:00 [facility] Weight 2018-09-14 15:45:00 [facility] Height 2018-09-14 15:45:00 [facility] Temperature Oral (F) 2018-09-14 15:45:00 98.1 F [facility] Heart Rate 2018-09-14 15:45:00 [facility] Diastolic (mm Hg) 2018-09-14 15:45:00 [facility] Systolic (mm Hg) 2018-09-14 15:45:00 [facility] Weight 2018-06-16 19:00:00 [facility] Height 2018-06-16 19:00:00 [facility] Temperature Oral (F) 2018-06-16 19:00:00 97.0 F [facility] Heart Rate 2018-06-16 19:00:00 [facility] Diastolic (mm Hg) 2018-06-16 19:00:00 [facility] Systolic (mm Hg) 2018-06-16 19:00:00 [facility] Weight 2018-06-13 17:45:00 [facility] Height 2018-06-13 17:45:00 [facility] Temperature Oral (F) 2018-06-13 17:45:00 98.5 F [facility] Heart Rate 2018-06-13 17:45:00 [facility] Diastolic (mm Hg) 2018-06-13 17:45:00 [facility] Systolic (mm Hg) 2018-06-13 17:45:00 [facility] Weight 2018-03-14 18:00:00 [facility] Height 2018-03-14 18:00:00 [facility] Temperature Oral (F) 2018-03-14 18:00:00 98.5 F [facility] Heart Rate 2018-03-14 18:00:00 [facility] Diastolic (mm Hg) 2018-03-14 18:00:00 [facility] Systolic (mm Hg) 2018-03-14 18:00:00 [facility] Weight 2018-02-22 16:30:00 [facility] Height 2018-02-22 16:30:00 [facility] Temperature Oral (F) 2018-02-22 16:30:00 97.4 F [facility] Heart Rate 2018-02-22 16:30:00 [facility] Diastolic (mm Hg) 2018-02-22 16:30:00 [facility] Systolic (mm Hg) 2018-02-22 16:30:00 [facility] Weight 2017-11-18 20:30:00 [facility] Height 2017-11-18 20:30:00 [facility] Temperature Oral (F) 2017-11-18 20:30:00 97.9 F [facility] Heart Rate 2017-11-18 20:30:00 [facility] Diastolic (mm Hg) 2017-11-18 20:30:00 [facility] Systolic (mm Hg) 2017-11-18 20:30:00 Sil[facility]ino [facility] Weight 2017-11-08 15:45:00 [facility] Height 2017-11-08 15:45:00 [facility] Temperature Oral (F) 2017-11-08 15:45:00 97.2 F [facility] Heart Rate 2017-11-08 15:45:00 [facility] Diastolic (mm Hg) 2017-11-08 15:45:00 [facility] Systolic (mm Hg) 2017-11-08 15:45:00 Silvino [facility] Weight 2017-08-11 20:45:00 [facility] Height 2017-08-11 20:45:00 [facility] Temperature Oral (F) 2017-08-11 20:45:00 97.8 F [facility] Heart Rate 2017-08-11 20:45:00 [facility] Diastolic (mm Hg) 2017-08-11 20:45:00 [facility] Systolic (mm Hg) 2017-08-11 20:45:00 Silvino [facility] Weight 2017-08-10 15:15:00 [facility] Height 2017-08-10 15:15:00 [facility] Temperature Oral (F) 2017-08-10 15:15:00 97.2 F [facility] Heart Rate 2017-08-10 15:15:00 [facility] Diastolic (mm Hg) 2017-08-10 15:15:00 [facility] Systolic (mm Hg) 2017-08-10 15:15:00 [facility] Weight 2017-04-12 13:00:00 [facility] Height 2017-04-12 13:00:00 [facility] Temperature Oral (F) 2017-04-12 13:00:00 97.2 F [facility] Heart Rate 2017-04-12 13:00:00 [facility] Diastolic (mm Hg) 2017-04-12 13:00:00 [facility] Systolic (mm Hg) 2017-04-12 13:00:00 Silvino [facility] Temperature Oral (F) 2017-02-03 20:39:00 98.1 F [facility] Systolic (mm Hg) 2017-02-03 20:39:00 Silvino [facility] Diastolic (mm Hg) 2017-02-03 20:39:00 [facility] Heart Rate 2017-02-03 20:39:00 [facility] Respitory Rate 2017-02-03 20:39:00 Memori al Ehn[facility] Systolic (mm Hg) 2017-02-03 16:27:00 [facility] Diastolic (mm Hg) 2017-02-03 16:27:00 [facility] Respitory Rate 2017-02-03 16:27:00 [facility] Temperature Oral (F) 2017-02-03 16:27:00 96.8 F [facility] Heart Rate 2017-02-03 16:27:00 [facility] Heart Rate 2017-02-03 10:08:00 [facility] Temperature Oral (F) 2017-02-03 10:08:00 96.9 F [facility] Respitory Rate 2017-02-03 10:08:00 [facility] Systolic (mm Hg) 2017-02-03 10:08:00 Silvino [facility] Diastolic (mm Hg) 2017-02-03 10:08:00 [facility] Height 2017-02-03 03:57:00 157.48 cm [facility] Weight 2017-02-03 03:57:00 [facility] BMI Calculated 2017-02-03 03:57:00 [facility] Weight 2017-02-02 21:18:00 [facility] BMI Calculated 2017-02-02 21:18:00 [facility] Height 2017-02-02 21:18:00 157.48 cm [facility] Procedures Procedure Date / Time Performed Performing Clinician Sourc e Hysterectomy<sup>1</sup> [facility] Plan of Care Planned Activity Planned Date Details Comments Source Instructions Allergic Reaction [facility] Encounters Start Date/Time End Date/Time Encounter [facility] ID Source 2020-05-16 09:42:00 2020-05-16 09:42:00 Outpatient Asif SMITH [id number] Armen Pickett MD 2020-05-10 13:30:00 2020-05-10 13:30:00 Outpatient MD SARAH Saenz MD [place] [id number] Armen Pickett MD 2020-05-05 04:30:00 2020-05-05 05:36:00 Departed Emergency Room [facility] [id number] [facility] 2020-05-04 03:57:00 2020-05-04 04:39:00 Departed Emergency Room [facility] [id number] [facility] 2020-03-06 15:50:00 2020-03-06 15:50:00 Outpatient Asif Pickett MD PA [id number] Armen Pickett MD 2020-02-20 10:00:00 2020-02-20 10:00:00 Outpatient Asif Pickett MD PA [id number] Armen Pickett MD 2020-02-16 09:45:00 2020-02-16 09:45:00 Outpatient Asif Pickett MD PA [id number] Armen Pickett MD 2019-10-26 08:15:00 2019-10-26 08:15:00 Outpatient Asif Pickett MD PA [id number] Armen Pickett MD 2019-10-18 12:13:00 2019-10-18 12:13:00 Outpatient Asif Pickett MD PA [id number] Armen Pickett MD 2019-09-21 11:26:00 2019-09-21 11:26:00 Outpatient Asif Pickett MD PA [id number] Armen Pickett MD 2019-07-26 12:18:00 2019-07-26 12:18:00 Outpatient Asif Pickett MD PA [id number] Armen Pickett MD 2019-07-25 16:46:00 2019-07-25 16:46:00 Outpatient MD SARAH Saenz MD PA [id number] Armen Pickett MD 2019-07-25 09:45:00 2019-07-25 09:45:00 Outpatient Asif Pickett MD PA [id number] Armen Pickett MD 2019-07-17 14:14:00 2019-07-17 14:14:00 Outpatient Asif SMITH [id number] Armen Pickett MD 2019-03-31 11:19:00 2019-03-31 11:19:00 Outpatient MD SARAH Saenz MD PA [id number] Armen Pickett MD 2019-02-01 11:45:00 2019-02-01 11:45:00 Outpatient MD SARAH Zuniga MD PA [id number] Armen Pickett MD 2019-01-24 12:38:00 2019-01-24 12:38:00 Outpatient Asif SMITH [id number] Armen Pickett MD 2019-01-24 11:45:00 2019-01-24 11:45:00 Outpatient Asif Pickett MD PA [id number] Armen Pickett MD 2019-01-23 15:23:00 2019-01-23 15:23:00 Outpatient Asif Pickett MD PA [id number] Armen Pickett MD 2018-09-20 10:30:00 2018-09-20 10:30:00 Outpatient Asif Pickett MD PA [id number] Armen Pickett MD 2018-09-14 11:15:00 2018-09-14 11:15:00 Outpatient Asif Pickett MD PA [id number] Armen Pickett MD 2018-09-14 10:45:00 2018-09-14 10:45:00 Outpatient Asif Pickett MD PA [id number] Armen Pickett MD 2018-07-14 15:32:00 2018-07-14 15:32:00 Outpatient Asif Pickett MD PA [id number] Armen Pickett MD 2018-06-16 13:00:00 2018-06-16 13:00:00 Outpatient Asif Pickett MD PA [id number] Armen Pickett MD 2018-06-13 12:53:00 2018-06-13 12:53:00 Outpatient Asif Pickett MD PA [id number] Armen Pickett MD 2018-06-13 11:45:00 2018-06-13 11:45:00 Outpatient Asif Pickett MD PA [id number] Armen Pickett MD 2018-06-09 09:07:00 2018-06-09 09:07:00 Outpatient Asif Pickett MD PA [id number] Armen Pickett MD 2018-03-14 13:00:00 2018-03-14 13:00:00 Outpatient Asif Pickett MD PA [id number] Armen Pickett MD 2018-02-22 12:13:00 2018-02-22 12:13:00 Outpatient Asif Pickett MD PA [id number] Armen Pickett MD 2018-02-22 11:30:00 2018-02-22 11:30:00 Outpatient Asif Pickett MD PA [id number] Armen Pickett MD 2017-11-18 15:30:00 2017-11-18 15:30:00 Outpatient Asif Pickett MD PA [id number] Armen Pickett MD 2017-11-14 17:08:00 2017-11-14 17:08:00 Outpatient Asif Pickett MD PA [id number] Armen Pickett MD 2017-11-12 10:46:00 2017-11-12 10:46:00 Outpatient Asif SMITH [id number] Armen Pickett MD 2017-11-08 10:45:00 2017-11-08 10:45:00 Outpatient Asif Pickett MD PA [id number] Armen Pickett MD 2017-09-20 15:28:00 2017-09-20 15:28:00 Outpatient Asif Pickett MD PA [id number] Armen Pickett MD 2017-09-06 10:06:00 2017-09-06 10:06:00 Outpatient Asif Pickett MD PA [id number] Armen Pickett MD 2017-08-11 14:45:00 2017-08-11 14:45:00 Outpatient Asif SMITH [id number] Armen Pickett MD 2017-08-11 12:37:00 2017-08-11 12:37:00 Outpatient Asif SMITH [id number] Armen Pickett MD 2017-08-10 09:52:00 2017-08-10 09:52:00 Outpatient Asif Pickett MD PA [id number] Armen Pickett MD 2017-08-10 09:15:00 2017-08-10 09:15:00 Outpatient Asif Pickett MD PA [id number] Armen Pickett MD 2017-06-10 11:23:00 2017-06-10 11:23:00 Outpatient Asif Pickett MD PA [id number] Armen Pickett MD 2017-04-20 08:57:00 2017-04-20 08:57:00 Outpatient Asif Pickett MD PA [id number] Armen Pickett MD 2017-04-16 12:57:00 2017-04-16 12:57:00 Outpatient Asif Pickett MD PA [id number] Armen Pickett MD 2017-04-12 08:00:00 2017-04-12 08:00:00 Outpatient Asif Pickett MD PA [id number] Armen Pickett MD 2017-02-24 09:34:00 2017-02-24 23:59:00 Out[facility] [id number] 2017-02-02 16:18:00 2017-02-03 20:50:[address] [facility] [id number] Results Test Description Test Time Test Comments Results Result Comments Source CT BRAIN WO 2020-05-25 20:40:00 [facility] 1950 Sex: [place] [id number] Patient Name: ASHWIN MIN MR #: [id number] : 1950 Age/Sex: 70/F Req #: [id number] [facility] Physician: Ordered by: XU SHANNON DO Report #: [id number] Location: Room/Bed: Procedure: [id number] CT/CT BRAIN WO Exam Date: 05/25/20 Exam [...] TO: XU SHANNON 2 VIEWS 2020-05-25 20:21:00 [facility] PEARLANDName: ASHWIN MIN : 1950 Sex: F [facility] [address] [address] Patient Name: ASHWIN MIN MR #: [id number] : 1950 Age/Sex: 70/F Req #: [id number] Adm Physician: Ordered by: XU SHANNON DO Report #: [id number] Location: ER Room/Bed: Procedure: [id number] DX/CHEST 2 VIEWS Exam Date: 05/25/20 Exam [...] CHEM PANEL 2017-02-03 20:38:00 0.6 [facility] CHEM PANEL 2017-02-03 08:39:00 3.3 [facility] CHEM PANEL 2017-02-03 08:39:00 72 [facility] CHEM PANEL 2017-02-03 08:39:00 8.6 [facility] CHEM PANEL 2017-02-03 08:39:00 26 [facility] CHEM PANEL 2017-02-03 08:39:00 0.84 [facility] CHEM PANEL 2017-02-03 08:39:00 141 [facility] CHEM PANEL 2017-02-03 08:39:00 106 [facility] CHEM PANEL 2017-02-03 08:39:00 3.9 [facility] CHEM PANEL 2017-02-03 08:39:00 104 [facility] CHEM PANEL 2017-02-03 08:39:00 19 [facility] CHEM PANEL 2017-02-03 08:39:00 12.9 [facility] CHEM PANEL 2017-02-03 08:39:00 2.2 [facility] HEMATOLOGY 2017-02-03 08:39:00 5.6 [facility] HEMATOLOGY 2017-02-03 08:39:00 89.6 [facility] HEMATOLOGY 2017-02-03 08:39:00 3.85 [facility] HEMATOLOGY 2017-02-03 08:39:00 14.8 [facility] HEMATOLOGY 2017-02-03 08:39:00 243 [facility] HEMATOLOGY 2017-02-03 08:39:00 Test Item MCH (test code = MCH) 30.6 pg 27.0-31.0 [facility] LhlmlfyNMCNKMXBQI0172-16-44 08:39:0034.1[facility]annHEMATOLOGY 2017-02-03 08:39:008.3[facility] HrrxoblYICCPGYJOI6617-36-62 08:39:0011.8[facility] UsxgzcwHJCVYKMCSM2960-72-89 08:39:0034.5[facility] HcijqbnUKLZZMWVJW9999-94-37 08:39:003.8[facility] EmniwvvTGRORATEAR0332-50-71 08:39:001.2[facility] XRKAUYENGD0127-65-66 08:39:000.5[facility] MfjvywbTDZVLWBLJM4306-69-58 08:39:000.2 [facility] OwcgypjKAHPIZAPPY3831-51-32 08:39:000.6[facility] HermannHEMATOLOGY 2017-02-03 08:39:009.3[facility] RpdnauwOUHIEMKMIU5917-25-11 08:39:0068.1[facility] XghpbguOSHBIZQEUA7774-58-33 08:39:0021.8[facility] XrlbehyDSBCSF2496-76-83 08:39:002.26[facility] DrfyehgPWZBSU8116-81-30 08:39:0060[facility] HermannLIPIDS 2017-02-03 08:39:0058[facility] PkyyksfXUSSXX2705-18-85 08:39:0013[facility] LFHYDL2122-04-17 08:39:63519Mbhnbmqd JxqvywqXDQNHD9970-54-92 08:39:0063[facility] HermannPARATHYROID VCSMXEV1296-50-15 08:39:001.07[facility] HermannPARATHYROID FDIGLHE8063-78-07 08:39:001.06[facility] HermannSPECIAL KDNEMUPYH9731-87-39 08:39:005.2[facility] HermannDRUG EFGRRW2900-01-40 23:02:16Negative *NA*(02/02/17 6:02 PM)[facility]annDR[facility] CJLAJW9222-40-46 23:02:16Negative *NA*(02/02/17 6:02 PM)[facility]annDR[facility] BMIUQD1452-34-48 23:02:16Negative *NA*(02/02/17 6:02 PM) [facility]DR[facility] LPLKJJ7210-82-07 23:02:16Negative *NA*(02/02/17 6:02 PM) [facility]DR[facility] UGHPPC8279-33-11 23:02:16Negative *NA*(02/02/17 6:02 PM) [facility]DR[facility] GIVHUZ0249-71-62 23:02:16See Note *NA*(02/02/17 6:02 PM) [facility] FKMISV8264-95-77 23:02:16Negative *NA*(02/02/17 6:02 PM) [facility] CNAJET3627-50-79 23:02:16Negative *NA*(02/02/17 6:02 PM) [facility] AND WEJUQ0304-33-90 23:02:16None Seen (02/02/17 6:02 PM) [facility] KRHAU3066-13-02 23:02:16Negative *NA*(02/02/17 6:02 PM) [facility] MJKOD5779-89-44 23:02:16Negative *NA*(02/02/17 6:02 PM) [facility] SEWAV0226-68-37 23:02:16Trace *ABN*(02/02/17 6:02 PM) [facility] FPCGW7771-90-63 23:02:16Negative (02/02/17 6:02 PM) [facility] XJXNQ7817-89-67 23:02:16Negative (02/02/17 6:02 PM) [facility] KCRGE8373-08-25 23:02:160.2[facility] AND TCUFW1401-16-47 23:02:16Negative (02/02/17 6:02 PM)[facility] STOOL 2017-02-02 23:02:16* Test Item Value Reference Range Interpretation Comments UA pH (test code = UA pH) 7.0 1 5.0-8.0 [facility] WWAJM8414-87-06 23:02:16Negative (02/02/17 6:02 PM) [facility] JVPTF3099-14-96 23:02:16* Test Item Value Reference Range Interpretation Comments UA Spec Grav (test code = UA Spec Grav) 1.010 1 [facility] HWFLB5215-00-37 23:02:16Yellow *NA*(02/02/17 6:02 PM) [facility] ZPQEE4097-59-59 23:02:16Slight Cloudy (02/02/17 6:02 PM) [facility]annCHEM PHQCU5932-23-86 21:46:361.4[facility] HermannCARDIAC ENZYMES 2017-02-02 21:41:00<0.02[facility] HermannCHEM LGPVQ5285-46-99 21:41:0054[facility] HermannCHEM FAOLQ8854-85-82 21:41:29220Ypqviwkx HermannCHEM DHEWM5836-86-98 21:41:009.1[facility] HermannCHEM NNEJW9766-69-09 21:41:0025[facility] HermannCHEM GZVJS7520-38-65 21:41:003.7[facility] HermannCHEM FLEWQ0377-21-53 21:41:77481 [facility]annCHEM VDTKP0003-29-64 21:41:001.07[facility] HermannCHEM PANEL 2017-02-02 21:41:0018[facility] HermannCHEM PDDBR6742-39-83 21:41:83704Znehwyxo HermannCHEM IGADT2858-19-99 21:41:0075[facility] HermannCHEM FKCPI2404-23-07 21:41:000.8[facility] HermannCHEM PUALG0639-65-23 21:41:004.3[facility] HermannCHEM DGYCO8316-19-08 21:41:0024[facility] HermannCHEM GPLEQ8374-69-99 21:41:0025 [facility]annCHEM ZMVKE2830-16-23 21:41:007.5[facility] HermannCHEM PANEL 2017-02-02 21:41:0017[facility] HermannCHEM QMGKR2750-16-03 21:41:0012.7[facility] HermannCHEM XJJBM9017-51-29 21:41:003.2[facility] HermannCHEM CUFNO1091-70-96 21:41:001.3[facility] ZbvhgndJFREGIYKHX0849-89-31 21:41:00* Test Item Value Reference Range Interpretation Comments PTT (test code = PTT) 26.1 s 22.9-35.8 [facility] ZsbdcifEODEFJZLEJ2796-34-65 21:41:00* Test Item Value Reference Range Interpretation Comments PT (test code = PT) 13.0 s 12.0-14.7 [facility] BkuoizzUSMENDYZIN3118-27-72 21:41:000.96[facility] HermannHEMATOLOGY 2017-02-02 21:41:008.2[facility] CerthnqDNCFDUSUUY1451-82-43 21:41:66454Ncufgllm PlwtmzdPUISDWZOPP2665-42-98 21:41:0014.8[facility] OeaeiwpRUUSIXBDRG3564-45-65 21:41:0033.9[facility] MgrtcaySAVZQIDAQZ5071-76-87 21:41:00* Test Item Value Reference Range Interpretation Comments MCH (test code = MCH) 30.1 pg 27.0-31.0 [facility] DeyovzdSJITNBOZMM9425-85-19 21:41:0012.5[facility] HermannHEMATOLOGY 2017-02-02 21:41:0037.0[facility] WrlzeqpMXBOKOSHXO2847-52-92 21:41:0088.8[facility] ZyjgiyxKTXGUEPUUF1636-90-04 21:41:005.6[facility] UyrnrdsLPCZCQYHUZ0878-68-92 21:41:004.16[facility] UnftqzqATUXQKBQJU7574-74-67 21:41:000.4[facility] VELJTGDVKW7482-84-38 21:41:004.0[facility] SnpqjkdLUQMDPWPDS8453-11-98 21:41:001.1 [facility] WaggwtoCOCZUEOZHK8277-61-68 21:41:007.8[facility] HermannHEMATOLOGY 2017-02-02 21:41:002.1[facility] QimvierXEKHMZAOAS2106-10-45 21:41:000.2[facility] JicvtiiFCFCPZVQQO6291-32-86 21:41:0070.5[facility] PiohduxMLDWTYPICV0969-88-62 21:41:0019.4[facility] EphkynqOQYXQIDUBY9170-53-86 21:41:000.1[facility]
[2020-05-26] VITALS (11 sets, daily range): BP systolic 102–115; BP diastolic 58–71
[2020-05-26] MEDS: SODIUM CHLORIDE 0.9% 1000ML 1,000 ML IV SCH ×2 (01:45→07:26)
--- NOTE | 2020-05-26 01:46 | NUR ---
RECEIVED PATIENT FROM ED AT THIS TIME VIA WHEELCHAIR. PATIENT AMBULATED WITH STANDBY ASSISTANCE TO BED. A&OX3. LUNG SOUNDS CLEAR. BOWEL SOUNDS ACTIVE. SKIN INTACT. NO EDEMA NOTED. PEDAL PULSES PALPABLE. TELE #27 ON, RUNNING SR. MILD PAIN REPORTED TO R SHOULDER WITH MOVEMENT, OTHERWISE NO PAIN REPORTED. PATIENT VERBALIZED SHE WOULD CALL IF CHEST PAIN RETURNED. NO S&S OF DISTRESS NOTED. BED LOCKED IN LOWEST POSITION, SIDE RAILS UPX2, CALL LIGHT IN REACH.
[2020-05-26] MEDS ORDERED: ASPIRIN325 MG PO (03:01)
[2020-05-26] MEDS ORDERED: CRESTOR20 MG PO (03:01)
[2020-05-26] MEDS ORDERED: PREDNISONE5 MG PO (03:01)
[2020-05-26] MEDS ORDERED: LISINOPRIL20 MG PO (03:01)
[2020-05-26] MEDS ORDERED: TIZANIDINE HCL4 MG PO (03:01)
[2020-05-26] MEDS ORDERED: PANTOPRAZOLE SO40 MG PO (03:01)
[2020-05-26] MEDS ORDERED: HYDROCHLOROTHIA25 MG PO (03:01)
[2020-05-26] MEDS ORDERED: VITAMIN D250 MC1 PO (03:01)
[2020-05-26] MEDS ORDERED: LEVOTHYROXINE75 MCG PO (03:02)
[2020-05-26] MEDS ORDERED: ALENDRONATE SOD70 MG PO (03:02)
[2020-05-26] MEDS ORDERED: POTASSIUM CHLO10 ME1 PO (03:02)
[2020-05-26] MEDS ORDERED: ZETIA10 MG PO (03:02)
[2020-05-26 07:47] LABS: EOSINOPHILS # (AUTO) 0.5 (0.0-0.4); EOSINOPHILS % 8.7 % (0.0-6.0); HEMATOCRIT 32.4 % (34.2-44.1); HEMOGLOBIN 10.4 g/dL (12.0-16.0); LYMPHOCYTES # (AUTO) 0.8 (1.0-3.2); LYMPHOCYTES % 12.2 % (18.0-39.1); MEAN CORPUSCULAR HEMOGLOBIN 29.7 pg (28-32); MEAN CORPUSCULAR HGB CONC 32.1 g/dL (31-35); MEAN CORPUSCULAR VOLUME 92.6 fL (81-99); MONOCYTES # (AUTO) 0.5 (0.2-0.8); MONOCYTES % 8.2 % (4.4-11.3); NEUTROPHILS # (AUTO) 4.4 (2.1-6.9); NEUTROPHILS % 70.3 % (38.7-80.0); PLATELET COUNT 166 x10e3/uL (140-360); RED CELL DISTRIBUTION WIDTH 13.7 % (11.7-14.4)
[2020-05-26] MEDS ORDERED: ACETAMINOPHEN 325 MG TAB PO PRN (08:00)
[2020-05-26] MEDS ORDERED: DOCUSATE SODIUM 100 MG CAP PO PRN (08:00)
[2020-05-26] MEDS ORDERED: HYDRALAZINE HCL 20 MG/ML VIAL IV PRN (08:00)
[2020-05-26] MEDS ORDERED: ONDANSETRON HCL INJ 2MG/ML 2ML 2 MG/ML VIAL IV PRN (08:00)
[2020-05-26] MEDS ORDERED: GUAIFENESIN/CODEINE 10 ML CUP PO PRN (08:00)
[2020-05-26] MEDS ORDERED: TRAMADOL HCL 50 MG TAB PO PRN (08:00)
[2020-05-26] MEDS ORDERED: POLYETHYLENE GLYCOL 3350 17 GM PACK PO PRN (08:00)
[2020-05-26] MEDS ORDERED: ALBUTEROL/IPRATROPIUM 3 ML NEB NEB PRN (08:00)
[2020-05-26] MEDS ORDERED: MELATONIN 5 MG TABLET PO PRN (08:00)
[2020-05-26 08:10] LABS: ALBUMIN 3.2 g/dL (3.5-5.0); ALBUMIN/GLOBULIN RATIO 1.4 (0.8-2.0); ANION GAP 10.6 mmol/L (8-16); CALCIUM 8.1 mg/dL (8.4-10.2); CREATINE KINASE 39 IU/L (29-168); CREATININE, SERUM 1.14 mg/dL (0.57-1.11); POTASSIUM 3.6 mmol/L (3.5-5.1)
[2020-05-26] MEDS: LEVOTHYROXINE SODIUM 75 MCG TAB PO SCH (08:38)
[2020-05-26] MEDS: EZETIMIBE 10 MG TAB PO SCH (08:38)
[2020-05-26] MEDS: HYDROCHLOROTHIAZIDE 25 MG TAB PO SCH (08:38)
[2020-05-26] MEDS: ASPIRIN 325 MG TAB PO SCH (08:38)
[2020-05-26] MEDS: PREDNISONE 5 MG TAB PO SCH (08:38)
[2020-05-26] MEDS: LISINOPRIL 20 MG TAB PO SCH (08:39)
[2020-05-26] MEDS ORDERED: CRESTOR 10MG PO SCH (09:00)
[2020-05-26] MEDS ORDERED: MORPHINE SULFATE INJ 4 MG/ML INJ 1ML IV PRN (11:15)
--- NOTE | 2020-05-26 13:35 | Consultation ---
DATE OF CONSULTATION: Neurology Consultation HISTORY OF PRESENT ILLNESS: I am seeing the patient for arm pain and weakness, right arm as well as bilateral hip pain, right myofascial more than the left. The hip pain started a few weeks ago. The arm pain from getting history, apparently started about a week ago. She describes it as a throbbing, aching pain in the right shoulder that sometimes radiates down to the triceps, but most times stays there. She does not appear to be tender to the touch. It is not worse in particular with movement, but the weakness is severe in the deltoid. She does not remember any trauma. She does report that she lifts and carries things frequently, but she has no apparent recall any sudden onset events, but does not recall sudden break or sudden onset. She pretty much woke up with it one day or just a contracture throughout the day. She is a generally healthy pressure with hypertension 70 despite being 70. She does take thyroid medications and cholesterol medications and antihypertensives. She denies being diabetic. For the pain, she has received several injections as well as ibuprofen and Tylenol with minimal benefit. When she has recently come here she has received morphine. She states the pain that was previously a 20/10, it is now manageable at about 6. She still has weakness. A CT scan was done of her head, which appears normal. X-ray was done of her chest shows appears normal at this time. Concern was for chest pain. On this x-ray, the chest x-ray does show right hilar prominence which may be concerning for lymph nodes. REVIEW OF SYSTEMS: Otherwise, review of systems just is describing the pain, weakness in her right arm and then the pain in her bilateral lower extremities. A 14-point review of systems otherwise negative. No shortness of breath. She does state she has chest pain, but not include cardiovascular type chest pain. No nausea or vomiting. No constipation or diarrhea. PHYSICAL EXAMINATION: VITAL SIGNS: Her temperature is 98.2, heart rate is 62, and blood pressure 108/58. NEUROLOGIC: Extraocular muscles intact. Face symmetric. Tongue is midline. Speech is clear with no nuchal rigidity. No limitation in neck movements. Left arm seems normal including strength and movement. Right arm strength and shot bagger informer are within normal limits. Deltoid is weak. She is not able to abduct, adduct, or lift anteriorly. I think she will get out of bed to see if she can lift backwards, but retropulse. Abdomen is soft. Reflexes are symmetric in arms and legs. I could not palpate or induce tenderness with touching the shoulder in the deltoid. No ataxia is noted. Sensory is grossly intact. ASSESSMENT AND PLAN: I am seeing the patient, [place] Frank for what appears to be a myalgia versus I would guess a muscle tear in the shoulder. Not sure what this is affecting the bilateral extremities. Given x-ray abnormalities, there is some concern that there might be something more malignant going on here, but I am not sure how that would translate into exactly what we are seeing here. I am going to check a myositis or myopathy workup and get an MRI of that shoulder. We do not feel any change in medications at this time, although I am primarily hold the lovastatin for now as it can induce myalgias. ЕЛЕНА KRISHNA MD RR/MODL /[id number]
[2020-05-26 15:47] LABS: CREATINE KINASE 38 IU/L (29-168)
[2020-05-26] MEDS: METHOCARBAMOL 750 MG TAB PO SCH (16:43)
[2020-05-26] MEDS ORDERED: ENOXAPARIN SOD INJ 40 MG/0.4 ML SYR SC SCH (17:00)
--- NOTE | 2020-05-26 19:00 | NUR ---
RECEIVED PATIENT IN BEDSIDE SHIFT REPORT. PATIENT RESTING IN BED AT THIS TIME. MILD PAIN TO R SHOULDER, PATIENT REPORTS MUCH BETTER THAN PREVIOUS. NO S&S OF DISTRESS NOTED. BED LOCKED IN LOWEST POSITION, SIDE RAILS UPX2, CALL LIGHT IN REACH.
--- NOTE | 2020-05-26 20:52 | Consultation ---
DATE OF CONSULTATION: 05/26/2020 Cardiology Consultation REASON FOR CONSULTATION: Chest pain. HISTORY OF PRESENT ILLNESS: A 70-year-old woman with a history of hypertension, dyslipidemia, hypothyroidism, presents with complaints of right shoulder discomfort radiating to back, anterior chest and left shoulder. She also complains of myalgias to the lower extremities that are chronic in nature. Discomfort is most significant to right shoulder and worsened in the right upper extremity for a couple of days. She denies any worsening chest discomfort with exertion. She denies any other associated complaints including absence of dyspnea, lightheadedness or palpitations. She denies any known prior cardiac history. She denies any cough or fever. REVIEW OF SYSTEMS: A 12-system review negative except for as noted above. PAST MEDICAL HISTORY: Remarkable for hypertension, dyslipidemia and hypothyroidism. SOCIAL HISTORY: Negative for smoking, alcohol, or drugs. FAMILY HISTORY: Noncontributory. ALLERGIES: NO KNOWN DRUG ALLERGIES. PHYSICAL EXAMINATION: VITAL SIGNS: Temperature 97.9, heart rate 69, blood pressure 115/70, respiratory rate 18, O2 saturation 100%, BMI 35. GENERAL: In no acute distress, alert. NECK: No JVD. No carotid bruit. CHEST: Clear to auscultation bilaterally. CARDIOVASCULAR: Regular rate and rhythm. Normal S1 and S2. No S3. No S4. No murmurs. No rubs. ABDOMEN: Soft. Bowel sounds positive. EXTREMITIES: No edema. Pain to active range of motion of the right shoulder girdle. CARDIOVASCULAR MEDICATIONS: Reviewed. Aspirin 325 mg daily, lisinopril 20 mg daily, hydralazine 10 mg q.4 hours, Lovenox 40 mg subcu daily, prednisone 5 mg daily, hydrochlorothiazide 12.5 mg daily, ezetimibe 10 mg daily, lovastatin held. STUDIES: Reviewed. Chest x-ray with right hilar prominence. White blood cell 6.2, hemoglobin 10.4, platelets 166. Sodium 142, potassium 3.6, chloride 110, bicarbonate 25, BUN 24, creatinine 1.1, glucose 83. Troponin I negative x3, BNP 163. COVID-19 pending. Total protein 5.5, albumin 3.2, CK 2.2. SSA, SSB striated muscle antibodies are all pending. On telemetry, in sinus rhythm. ASSESSMENT AND PLAN: 1. A 70-year-old woman presents with atypical chest discomfort and right shoulder discomfort, musculoskeletal type features. 2. Hypertension. 3. Dyslipidemia. 4. Hypothyroidism. 5. Anemia. RECOMMEND: Agree with holding statin therapy at this point, workup underway, however, CT within normal limits and clinical presentation asymmetric, most likely specific musculoskeletal etiology. MRI shoulder being considered. Obtain echocardiogram. Continue rest of cardiovascular medications. We will follow closely with you. Thank you for the opportunity to participate in the care of Ms Frank. MD BAUTISTA Erwin/MODL /[id number]
[2020-05-26] MEDS ORDERED: KETOROLAC TROMETHAMINE 30 MG/ML VIAL IV ONE (21:45)
--- NOTE | 2020-05-26 22:27 | History and Physical ---
CHIEF COMPLAINT: Shoulder pain, atypical chest pain. HISTORY OF PRESENT ILLNESS: A 70-year-old female, who was admitted really with complaints of bilateral shoulder pain. Reports having some weakness in the right upper extremity when she raises her arm, history of possible underlying fibromyalgia, and came in for further evaluation and management. The patient was seen and evaluated at bedside on the medical floor. She is currently doing well with no other issues at this time. She reports she has had this problem of generalized weakness for the last several months, but reports having some weakness to the upper shoulders ongoing for the last several days. In relation to her chest pain, she reports it is more shoulder pain than the chest pain. Cardiology and Neurology have been consulted. REVIEW OF SYSTEMS: Pertinent positive for bilateral shoulder pain. The rest of 14-point review of systems are reviewed with the patient and are negative. ALLERGIES: NO KNOWN DRUG ALLERGIES. HOME MEDICATIONS: Alendronate, Protonix, potassium. She takes tizanidine, aspirin, Zetia, hydrochlorothiazide, levothyroxine, lisinopril, prednisone, and rosuvastatin. PAST MEDICAL HISTORY: Hyperlipidemia, chronic pain, chronic muscle spasms, hypertension, hypothyroidism. PAST SURGICAL HISTORY: Reports none. FAMILY HISTORY: Hypertension, diabetes. SOCIAL HISTORY: No drugs, no alcohol. Does not smoke. Good social support. PHYSICAL EXAMINATION: VITAL SIGNS: Temperature 98.3, pulse 67, respiratory rate 16, blood pressure 114/66, pulse ox 99% on room air. GENERAL: No acute distress, oriented x3. Cooperative on examination. PULMONARY: Clear to auscultation bilaterally. No wheezing, rales, or rhonchi. No crackles appreciated. CARDIOVASCULAR: Positive S1 and S2. No murmurs, rubs, or gallops appreciated. ABDOMEN: Soft, nondistended, nontender to palpation. Bowel sounds present. NEUROLOGICAL: Cranial nerves II through XII are grossly intact. MUSCULOSKELETAL: Right upper extremity with 4/5 strength. The rest of the extremities are 5/5. SKIN: Intact. Warm to touch. Good capillary refill. PSYCHIATRIC: Normal affect and mood. EXTREMITIES: No edema. Good range of motion throughout. LABORATORY DATA: Labs show white count 6.2, hemoglobin 10.4, hematocrit 32.4, platelets of 166. Chemistry; sodium 142, potassium 3.6, chloride 110, bicarb 25, anion gap of 10, BUN is 24, creatinine 1.1, glucose 83, calcium 8.1. LFTs within normal range. Troponins were negative. Albumin 3.2. Urinalysis negative. IMMUNOLOGY: Several serologies pending, coronavirus is pending. MICROBIOLOGY: None. IMAGING STUDIES: CT brain, negative. Chest x-ray, no pneumonia or edema. Indeterminate right hilar prominence, which is somewhat hyperdense may relate to consider comparison with outside imaging facility versus nonemergent outpatient CT chest with contrast. I discussed this with the patient, which we will go ahead and order a CT chest with IV contrast including a CT cervical neck. IMPRESSION: 1. Atypical chest pain. 2. Hypertension. 3. Hyperlipidemia. 4. Right shoulder pain. PLAN: At this time, cardiac enzymes are negative, continue with cardioprotective medications. Hold statin. Cardiology is following. 2D echo ordered. Neurology consulted. MRI of the right shoulder pending, CT cervical neck pending. There is some question on the chest x-ray, which I ordered a CT chest with IV contrast. Lovenox for DVT prophylaxis. Physical therapy consulted. MD MINE Ordoñez/CYNTHIA /[id number]
[2020-05-26] MEDS ORDERED: SODIUM CHLORIDE 0.9% 50ML 50 ML ONE (22:54)
[2020-05-26] MEDS ORDERED: IOPAMIDOL 370 MG/ML 200 ML INFUS..BTL INJ ONE (22:55)
--- NOTE | 2020-05-27 00:05 | Diagnostic Imaging Report ---
History: Right upper extremity weakness Comparison studies: None Technique: Axial images were obtained through the cervical region. Coronal and sagittal images reconstructed from the axial data. Dose modulation, iterative reconstruction, and/or weight based adjustment of the mA/kV was utilized to reduce the radiation dose to as low as reasonably achievable. Intravenous contrast: None Findings: Atlantoaxial articulation: Intact. Alignment: Mild reversal the usual cervical lordotic curvature centered at C5-C6. No subluxations. Cervicomedullary junction: No abnormalities. The foramen magnum is patent. Soft tissues: No gross acute abnormalities. Vertebrae: No fractures, infection or neoplasm. Degenerative changes: Multiple anterior marginal osteophytes indent the prevertebral soft tissues. Multilevel disc degeneration which is mild at C3-C4 and C4-C5 and moderate at C5-C6 and at C6-C7. Mild disc osteophyte complexes at C5-C6 and C6-C7 result in only mild canal stenosis. Moderate multilevel facet arthrosis. Multilevel uncovertebral and facet arthrosis result in multilevel foraminal stenosis which is moderate on the right at C3-C4, mild bilaterally at C4-C5, moderate bilaterally at C5-C6 and mild to moderate left and mild right at C6-C7. IMPRESSION: 1. No acute cervical spine abnormalities. 2. Degenerative changes with multilevel disc degeneration and facet arthrosis and moderate foraminal stenosis on the right at C3-C4 and bilaterally at C5-C6. Ligament, spinal cord and or vascular abnormalities cannot be excluded on the basis of this examination Signed by: Dr. Deni Kinney M.D. on 05/27/2020 12:01 AM
--- NOTE | 2020-05-27 00:21 | Diagnostic Imaging Report ---
EXAM: CT Chest WITH contrast 05/26/2020 11:03 PM INDICATION: ^right upper weakness ^[id number] ^[id number] COMPARISON: None TECHNIQUE: Chest was scanned utilizing a multidetector helical scanner from the lung apex through the level of the adrenal glands with administration of IV contrast. Coronal and sagittal reformations were obtained. Routine protocol was performed. IV CONTRAST: 100 mL of Omnipaque 300 COMPLICATIONS: None FINDINGS: LUNGS AND AIRWAYS: The lungs are unremarkable. Airways are normal. PLEURA: The pleural spaces are clear. HEART AND MEDIASTINUM: The thyroid gland is normal. No mediastinal, hilar or axillary lymphadenopathy. The heart is normal in size. There is no pericardial effusion. Thoracic aorta and main pulmonary artery are normal caliber. Small hiatal hernia. UPPER ABDOMEN: Unremarkable. BONES: There are degenerative changes in the thoracic spine. IMPRESSION: No acute thoracic process. Signed by: Royer Man MD on 05/27/2020 12:18 AM
[2020-05-27 01:01] VITALS: BP 111/68
[2020-05-27 05:29] VITALS: BP 111/55
[2020-05-27 05:59] LABS: BASOPHILS % 0.2 % (0.0-1.0); EOSINOPHILS # (AUTO) 0.8 (0.0-0.4); EOSINOPHILS % 16.2 % (0.0-6.0); HEMATOCRIT 31.6 % (34.2-44.1); LYMPHOCYTES # (AUTO) 1.8 (1.0-3.2); MEAN CORPUSCULAR HEMOGLOBIN 29.4 pg (28-32); MEAN CORPUSCULAR HGB CONC 31.6 g/dL (31-35); MEAN CORPUSCULAR VOLUME 92.9 fL (81-99); MONOCYTES # (AUTO) 0.5 (0.2-0.8); MONOCYTES % 10.5 % (4.4-11.3); NEUTROPHILS # (AUTO) 1.7 (2.1-6.9); NEUTROPHILS % 35.3 % (38.7-80.0); PLATELET COUNT 164 x10e3/uL (140-360); RED CELL DISTRIBUTION WIDTH 13.7 % (11.7-14.4)
[2020-05-27 06:23] LABS: ALBUMIN/GLOBULIN RATIO 1.4 (0.8-2.0); ANION GAP 9.9 mmol/L (8-16); CALCIUM 8.2 mg/dL (8.4-10.2); CREATININE, SERUM 1.15 mg/dL (0.57-1.11); POTASSIUM 3.9 mmol/L (3.5-5.1)
[2020-05-27] MEDS ORDERED: PANTOPRAZOLE SOD 40 MG TABEC PO SCH (07:30)
--- NOTE | 2020-05-27 08:01 | NUR ---
stable patient mri and myoglobing and ssa ssb pending vs 98.3 67 111/68 NEUROLOGIC: Extraocular muscles intact. Face symmetric. Tongue is midline. Speech is clear with no nuchal rigidity. No limitation in neck movements. Left arm seems normal including strength and movement. Right arm strength and ticket taker ferryboat informer are within normal limits. Deltoid is weak. She is not able to abduct, adduct, or lift anteriorly. I think she will get out of bed to see if she can lift backwards, but retropulse. Abdomen is soft. Reflexes are symmetric in arms and legs. I could not palpate or induce tenderness with touching the shoulder in the deltoid. No ataxia is noted. Sensory is grossly intact. ASSESSMENT myalgia versus I would guess a muscle tear in the shoulder. myositis and structural imaiging is pending PTOT and home rehab eval hold statin await diagnostics
[2020-05-27 08:08] VITALS: BP 118/68
[2020-05-27] MEDS: PREDNISONE 5 MG TAB PO SCH (08:13)
[2020-05-27] MEDS: ASPIRIN 325 MG TAB PO SCH (08:13)
[2020-05-27] MEDS: HYDROCHLOROTHIAZIDE 25 MG TAB PO SCH (08:13)
[2020-05-27] MEDS: LISINOPRIL 20 MG TAB PO SCH (08:13)
[2020-05-27] MEDS: METHOCARBAMOL 750 MG TAB PO SCH (08:13)
[2020-05-27] MEDS: EZETIMIBE 10 MG TAB PO SCH (08:14)
[2020-05-27] MEDS: LEVOTHYROXINE SODIUM 75 MCG TAB PO SCH (08:14)
[2020-05-27 09:09] VITALS: BP 118/68
--- NOTE | 2020-05-27 09:38 | Diagnostic Imaging Report ---
TECHNIQUE: Magnetic resonance imaging of the RIGHT SHOULDER was performed WITHOUT injected contrast. COMPARISON: None available. HISTORY: Right shoulder pain, muscle tear FINDINGS: MUSCLES AND TENDONS: Rotator Cuff: Tendons: Rotator cuff tendinosis without tear. Muscles: No focal muscle atrophy. Biceps Tendon: The long head of the biceps tendon is within the bicipital groove. The intra-articular portion is poorly visualized. GLENOHUMERAL JOINT: Glenoid Labrum: Fraying of the superior labrum. Articular Cartilage: Partial-thickness cartilage loss. AC JOINT AND ACROMION: Mild hypertrophic degenerative changes of the acromioclavicular joint. Mild subacromial spurring. BONE: Cystic change at the greater tuberosity. No acute fracture. SOFT TISSUES: Otherwise, the soft tissues appear unremarkable. IMPRESSION: Rotator cuff tendinosis without tear. Mild glenohumeral and acromioclavicular arthrosis. Signed by: Dr. Patrick Alonzo M.D. on 05/27/2020 9:34 AM
--- NOTE | 2020-05-27 12:30 | NUR ---
patient discharged. IV access removed, telemetry removed and returned. patient given discharge instructions and follow up information. clear on follow up appts needed. patient wheeled off unit in stable condition with all belongings.
--- NOTE | 2020-05-28 00:42 | Progress Note ---
DATE: 05/27/2020 Cardiology Progress Note SUBJECTIVE: Ms. Frank continues to have right shoulder discomfort. Has no other complaints. At this point, awaiting MRI results. OBJECTIVE: VITAL SIGNS: Temperature 98.3, heart rate 57, blood pressure 118/68, respiratory rate 22, O2 saturation 99%. GENERAL: No acute distress. Alert. NECK: No JVD. CHEST: Clear to auscultation. CARDIOVASCULAR: Regular rate and rhythm. Normal S1, S2. No S3. No S4. No murmurs. No rubs. ABDOMEN: Soft. Bowel sounds positive. EXTREMITIES: No edema. CARDIOVASCULAR MEDICATIONS: Reviewed. 1. Lovenox 40 mg subcu daily. 2. Prednisone 5 mg daily. 3. Zetia 10 mg daily. 4. Lisinopril 20 mg daily. STUDIES: Reviewed. Creatinine 1.1, hemoglobin 10, platelets 164. ASSESSMENT AND PLAN: 1. 70-year-old woman presents with atypical chest pain and right shoulder discomfort concerning for musculoskeletal etiology. 2. Anemia. 3. Myalgias, undergoing statin holiday. RECOMMENDATIONS: Continue current cardiovascular medications. Holding statin therapy for the following two weeks to assess symptomatic response. Await MRI results for further evaluation of likely musculoskeletal etiology to symptoms. Outpatient followup advised in 2 to 4 weeks, particularly if change in chest pain pattern to exertional in nature. Alarm signs discussed with the patient. Efrain Zamudio MD AFSergey/CYNTHIA /[id number]
--- NOTE | 2020-05-28 11:14 | Discharge Summary ---
FINAL DISCHARGE DIAGNOSES: 1. Atypical chest pain secondary to right shoulder pain. 2. Right shoulder tendinitis. 3. Chronic osteoarthritis. 4. Hypertension. CONSULTANTS: 1. Neurology. 2. Cardiology. PHYSICAL EXAMINATION: VITAL SIGNS: Temperature is 98.3, pulse 57, respiratory rate 22, blood pressure 118/60, pulse ox 99% on room air. LABORATORY FINDINGS: Show white count is 4.8, hemoglobin 10, hematocrit 32, platelets of 164. Chemistry; sodium 139, potassium 3.9, chloride 108, bicarb 25, anion gap was 9.9, BUN is 22, creatinine is 1.1, calcium is 8.2. Total bilirubin is 0.4, AST , alkaline phosphatase 82. Troponins were all negative. Albumin was 3. Urinalysis negative. Several serologies were pending. Hematologically from Neurology, coronavirus was pending on discharge. IMAGING STUDIES: CT of the brain was found to be negative. Chest x-ray, no pneumonia or edema. Indeterminate right hilar prominence somewhat hyperdense noted. Chest CT with IV contrast was ordered for confirmation, showed no acute thoracic process. There is no lymphadenopathy and there is no hilar mass or any kind of mass noted on CT chest with IV contrast. Shoulder MRI, rotator cuff tendinosis without tear, mild glenohumeral and acromioclavicular arthrosis. CT of cervical neck, no acute cervical spine abnormalities. There is some degenerative change with multilevel disc degeneration and fossa arthrosis, moderate foraminal stenosis on the right at C3-C4 and bilateral C5-C6. HOSPITAL COURSE: A 70-year-old female, comes into the ED with complaints of underlying right shoulder pain that led to atypical chest pain. The patient was admitted. Cardiac enzymes were negative. Cardiology was consulted. It was felt to be atypical in nature likely musculoskeletal in nature with no further cardiac workup needed. We also discussed with the patient to discontinue her statins for now in the event that there were myalgias from underlying statins. No further workup needed by Cardiology. Neurology was consulted in which an MRI of the shoulder as well as other imaging studies were performed. MRI of the shoulder was consistent with tendinitis of the right shoulder. There is no evidence of any rotator cuff tear. There are several serologies ordered by Neurology in which the patient will follow up with Neurology as an outpatient. I discussed with the patient this is likely osteoarthritis and tendinitis of the right shoulder. She will follow up with her primary kitchen chef. In fact, she reports seeing a kitchen chef, Dr. Pickett for other issues in which I discussed with her that she will likely need to see him with possible injections to the right shoulder. There is no tear or any fracture. She verbalized understanding. She has been cleared for discharge by Neurology and by Cardiology. On the day of discharge, vital signs were stable. Labs reviewed and stable. The patient is seen and evaluated and examined thoroughly on the day of discharge. No other complaints. The patient verbalized understanding and agrees to plan of care to follow up as an outpatient with primary care physician in 1 week and her kitchen chef in 7 to 10 days; neurology in 2 weeks' time; Cardiology in 2 weeks. MEDICATIONS: See med reconciliation form. DISPOSITION: Home. CONDITION: Stable. DIET: Heart healthy. In the event of any worsening symptoms, patient was advised to come back to the ED for further evaluation. Discharge summary took greater than 35 minutes. Once again, the patient has been cleared for discharge by all consultants. MD MINE Ordoñez/CYNTHIA /[id number]
== END 2020-05-27 12:17 | disposition home or self-care (01) ==
LOC: ER 18:55 → ERHOLD 23:34 → MED/SURG 05-26 01:47
PROVIDERS: ADMIT Internal Medicine; ATTEND Internal Medicine
DX: R07.89 Other chest pain (principal); M25.511 Pain in right shoulder; M77.8 Other enthesopathies, not elsewhere classified; I10 Essential (primary) hypertension; D64.9 Anemia, unspecified; M25.552 Pain in left hip; M25.551 Pain in right hip; E03.9 Hypothyroidism, unspecified; M79.7 Fibromyalgia; E78.5 Hyperlipidemia, unspecified
CPT/HCPCS: 36415 ×3; 70450; 71046; 71260; 72125; 73221; 80053 ×3; 81001; 82550 ×2; 82553 ×2; 83874; 83880; 84484 ×2; 85025 ×3; 85651; 86140; 86235; 86256; 93005; 93306; 96361; 99284; G0378 ×3; J1650; J1885; J2270; J7030 ×2; J7512 ×2; Q9967; S0164; U0002

== ENCOUNTER → 2021-03-11 | Outpatient (CLI) | payer MEDICARE ==
[~2021-03-11] MED LIST changes: +ALENDRONATE SOD70 MG PO; +ASPIRIN325 MG PO; +CRESTOR20 MG PO; +HYDROCHLOROTHIA25 MG PO; +LEVOTHYROXINE75 MCG PO; +LISINOPRIL20 MG PO; +PANTOPRAZOLE SO40 MG PO; +POTASSIUM CHLO10 ME1 PO; +PREDNISONE5 MG PO; +REGADENOSON 0.4 MG/5 ML SYR IV ONE; +TIZANIDINE HCL4 MG PO; +VITAMIN D250 MC1 PO; +ZETIA10 MG PO
== END ==
LOC: NM 10:18
PROVIDERS: ATTEND Internal Medicine Cardiovascular Disease
DX: I25.10 Atherosclerotic heart disease of native coronary artery without angina pectoris (principal)
CPT/HCPCS: 78452; 93017; A9502; J2785

== ENCOUNTER 2021-11-18 21:19 | Emergency (ER) | payer MEDICARE ==
[~2021-11-18] VITALS: Ht 157.5 cm; Wt 88.0 kg
[~2021-11-18 21:19] MED LIST changes: -REGADENOSON 0.4 MG/5 ML SYR IV ONE
[2021-11-18] MEDS ORDERED: KETOROLAC TROMETHAMINE 60 MG/2 ML VIAL IM ONE (23:15)
[2021-11-18] MEDS ORDERED: KETOROLAC TROMETHAMINE 30 MG/ML VIAL ONE (23:26)
== END 2021-11-18 23:21 | disposition home or self-care (01) ==
LOC: ER 23:09
DX: M54.31 Sciatica, right side (principal); I10 Essential (primary) hypertension; E03.9 Hypothyroidism, unspecified; E78.5 Hyperlipidemia, unspecified; K21.9 Gastro-esophageal reflux disease without esophagitis; M54.9 Dorsalgia, unspecified; G89.29 Other chronic pain; Z85.42 Personal history of malignant neoplasm of other parts of uterus
CPT/HCPCS: 99282; J1885

== ENCOUNTER 2021-11-30 23:47 | Emergency (ER) | payer MEDICARE ==
[~2021-11-30] VITALS: Ht 157.5 cm; Wt 88.0 kg
[2021-11-30] MEDS ORDERED: KETOROLAC TROMETHAMINE 30 MG/ML VIAL IM STA (23:54)
[2021-12-01] MEDS ORDERED: DEXAMETHASONE SOD PHOS 10 MG/1 ML VIAL ONE (00:13)
[2021-12-01] MEDS ORDERED: DEXAMETHASONE SOD PHOS 10 MG/1 ML VIAL IM ONE (00:15)
== END 2021-12-01 01:30 | disposition home or self-care (01) ==
LOC: ER 23:52
DX: M54.31 Sciatica, right side (principal); I10 Essential (primary) hypertension; E03.9 Hypothyroidism, unspecified; E78.5 Hyperlipidemia, unspecified; K21.9 Gastro-esophageal reflux disease without esophagitis; M54.9 Dorsalgia, unspecified; G89.29 Other chronic pain; Z85.42 Personal history of malignant neoplasm of other parts of uterus
CPT/HCPCS: 99282; J1100; J1885

== ENCOUNTER 2024-05-07 03:06 | Emergency (ER) | payer MEDICARE ==
[~2024-05-07] VITALS: Ht 157.5 cm; Wt 79.4 kg
[2024-05-07 03:12] VITALS: PULSE 65; RESP 16; TEMP 97.9; O2SAT 100
[2024-05-07 03:50] LABS: INFLUENZAE A&B ANTIGEN (RAPID) NEGATIVE (NEGATIVE); RESPIRATORY SYNC. VIRUS NEGATIVE (NEGATIVE); STREPTOCOCCUS GRP A ANTIGEN NEGATIVE (NEGATIVE)
[2024-05-07] MEDS ORDERED: AZITHROMYCIN250 MG PO (04:36)
[2024-05-07] MEDS ORDERED: PREDNISONE20 MG PO (04:36)
[2024-05-07] MEDS ORDERED: VENTOLIN HFA18 GM INH (04:36)
== END 2024-05-07 04:38 | disposition home or self-care (01) ==
LOC: ER 03:19
DX: R05.9 Cough, unspecified (principal); J06.9 Acute upper respiratory infection, unspecified; I10 Essential (primary) hypertension; E03.9 Hypothyroidism, unspecified; E78.5 Hyperlipidemia, unspecified; M19.09 Primary osteoarthritis, other specified site; M54.9 Dorsalgia, unspecified; G89.29 Other chronic pain; Z11.52 Encounter for screening for COVID-19; Z85.42 Personal history of malignant neoplasm of other parts of uterus
CPT/HCPCS: 71046; 83518; 87070; 87400; 87420; 93005; 99283; U0002